=== PATIENT | male | born 2000 | race Caucasian/White ===

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

== ENCOUNTER → 2020-05-27 | Outpatient (CLI) | payer BC, MEDICAID ==
[2020-05-27 12:21] LABS: BASO % 0.3 % (0.0-1.0); EOS % 0.3 % (0.0-3.0); HEMATOCRIT 50.1 % (42.0-52.0); HEMOGLOBIN 16.4 g/dl (13.5-17.5); LYMPH # 2.4 10^3/uL (1.5-5.0); LYMPH % 20.4 % (24.0-44.0); MEAN CORPUSCULAR HEMOGLOBIN 30.3 pg (27.0-33.0); MEAN CORPUSCULAR HGB CONC 32.7 g/dl (32.0-36.5); MEAN CORPUSCULAR VOLUME 92.4 fl (80.0-96.0); MONO # 0.5 10^3/uL (0.0-0.8); NEUTROPHILS # 8.7 10^3/uL (1.5-8.5); NEUTROPHILS % 74.7 % (36.0-66.0); PLATELET COUNT, AUTOMATED 401 10^3/uL (150-450); RED BLOOD COUNT 5.42 10^6/uL (4.30-6.10); WHITE BLOOD COUNT 11.6 10^3/uL (4.0-10.0)
[2020-05-27 12:22] LABS: APPEARANCE, URINE CLEAR (CLEAR); BACTERIA, URINE AUTO NEGATIVE (NEGATIVE); BILIRUBIN, URINE AUTO NEGATIVE (NEGATIVE); BLOOD, URINE BLOOD NEGATIVE (NEGATIVE); COLOR, URINE STRAW (YELLOW); GLUCOSE, URINE (UA) AUTO NEGATIVE (NEGATIVE); KETONE, URINE AUTO NEGATIVE (NEGATIVE); LEUKOCYTE ESTERASE, URINE AUTO NEGATIVE (NEGATIVE); NITRITE, URINE AUTO NEGATIVE (NEGATIVE); PROTEIN, URINE AUTO NEGATIVE (NEGATIVE); RBC, URINE AUTO 0 /HPF (0-3); SPECIFIC GRAVITY URINE AUTO 1.005 (1.002-1.035); SQUAMOUS EPITHELIAL CELL UR AU 0 /HPF (0-6); UROBILINOGEN, URINE AUTO 0.2 mg/dL (0.0-2.0); WBC, URINE AUTO 0 /HPF (0-3)
[2020-05-27 12:48] LABS: BLOOD UREA NITROGEN 11 MG/DL (7-18); CALCIUM LEVEL 9.3 MG/DL (8.5-10.1); CARBON DIOXIDE LEVEL 30 MEQ/L (21-32); CHLORIDE LEVEL 104 MEQ/L (98-107); CREATININE FOR GFR 0.81 MG/DL (0.70-1.30); GLUCOSE, FASTING 92 MG/DL (70-100); SODIUM LEVEL 138 MEQ/L (136-145)
[2020-05-27 12:50] LABS: PERCENT SATURATION 24.3 % (19.7-50.0)
[2020-05-27 13:00] LABS: HEPATITIS B SURFACE ANTIBODY POSITIVE (POSITIVE)
[2020-05-27 13:11] LABS: HEPATITIS B SURFACE ANTIGEN NEGATIVE (NEGATIVE)
[2020-05-27 13:39] LABS: HEPATITIS C VIRUS ABY INDEX < 0.0 INDEX (<0.8)
[2020-05-27 13:40] LABS: HIV 1&2 SCREEN CENTAUR NEGATIVE (NEGATIVE)
== END ==
LOC: M LAB 11:17
PROVIDERS: ATTEND Nurse Practitioner Family
DX: Z02.2 Encounter for examination for admission to residential institution (principal)

== ENCOUNTER → 2020-06-05 | Outpatient (REF) | payer BC, MEDICAID ==
[2020-06-05 14:03] LABS: ALBUMIN 4.4 GM/DL (3.2-5.2); ALT/SGPT 25 U/L (12-78); BILIRUBIN,DIRECT 0.1 MG/DL (0.0-0.2); BILIRUBIN,TOTAL 0.3 MG/DL (0.2-1.0); C REACTIVE PROTEIN QUANTITATIV < 0.30 MG/DL (0.00-0.30); TOTAL PROTEIN 7.7 GM/DL (6.4-8.2)
[2020-06-10 17:10] LABS: CYCLIC CITRULLINATED PEPTIDE 22 units (0-19); HLA-B27 Negative (.)
== END ==
LOC: M SFHCRHEU 10:17
PROVIDERS: ATTEND Internal Medicine
DX: M08.00 Unspecified juvenile rheumatoid arthritis of unspecified site (principal)

== ENCOUNTER 2020-06-24 11:55 | Outpatient (CLI) | payer BC, MEDICAID ==
[~2020-06-24] VITALS: Ht 185.4 cm; Wt 75.6 kg
[~2020-06-24 11:55] MED LIST changes: +ALBUTEROL SULFATE 2.5 MG/0.5 ML INH NEB SOLN INH PRN; +EPINEPHrine INJ 1 MG/ML 1ML AMP IM PRN; +diphenhydrAMINE 50MG/ML VIAL (J1200) IV PRN; +methylPREDNISolone 125MG 2ML VIAL IV PRN
[2020-06-24] MEDS ORDERED: ACETAMINOPHEN 650MG PO PRIOR TO INFUSION PO ONE (12:00)
[2020-06-24] MEDS ORDERED: INFLIXIMAB BIOSIMILAR 800 MG in NS 170 ML IV ONE (12:00)
[2020-06-24] MEDS ORDERED: NS 1,000 ML IV SCH (12:00)
[2020-06-24 12:28] VITALS: BP 135/73
[2020-06-24 12:48] VITALS: BP 135/73
[2020-06-24 14:08] VITALS: BP 154/76
== END 2020-06-24 14:10 | disposition home or self-care (01) ==
LOC: M INFU 11:55
PROVIDERS: ATTEND Internal Medicine
DX: M08.00 Unspecified juvenile rheumatoid arthritis of unspecified site (principal); L40.9 Psoriasis, unspecified
CPT/HCPCS: 96365; Q5103

== ENCOUNTER → 2020-07-28 | Outpatient (CLI) | payer BC, MEDICAID ==
[~2020-07-28] MED LIST changes: -ALBUTEROL SULFATE 2.5 MG/0.5 ML INH NEB SOLN INH PRN; -EPINEPHrine INJ 1 MG/ML 1ML AMP IM PRN; -diphenhydrAMINE 50MG/ML VIAL (J1200) IV PRN; -methylPREDNISolone 125MG 2ML VIAL IV PRN
[2020-07-28 14:51] LABS: BASO % 0.6 % (0.0-1.0); EOS # 0.2 10^3/uL (0.0-0.5); HEMATOCRIT 43.3 % (42.0-52.0); HEMOGLOBIN 14.1 g/dl (13.5-17.5); LYMPH # 3.2 10^3/uL (1.5-5.0); MEAN CORPUSCULAR HEMOGLOBIN 29.8 pg (27.0-33.0); MEAN CORPUSCULAR HGB CONC 32.6 g/dl (32.0-36.5); MEAN CORPUSCULAR VOLUME 91.5 fl (80.0-96.0); MONO # 0.6 10^3/uL (0.0-0.8); MONO % 8.7 % (0.0-5.0); NEUTROPHILS # 3.1 10^3/uL (1.5-8.5); NEUTROPHILS % 43.4 % (36.0-66.0); PLATELET COUNT, AUTOMATED 324 10^3/uL (150-450); RED BLOOD COUNT 4.73 10^6/uL (4.30-6.10); WHITE BLOOD COUNT 7.2 10^3/uL (4.0-10.0)
[2020-07-28 15:15] LABS: ERYTHROCYTE SEDIMENTATION RATE 2 mm/hr (0-15)
[2020-07-28 15:22] LABS: ALBUMIN 3.8 GM/DL (3.2-5.2); ALT/SGPT 28 U/L (12-78); BILIRUBIN,TOTAL 0.2 MG/DL (0.2-1.0); BLOOD UREA NITROGEN 15 MG/DL (7-18); CALCIUM LEVEL 8.9 MG/DL (8.5-10.1); CARBON DIOXIDE LEVEL 29 MEQ/L (21-32); CHLORIDE LEVEL 107 MEQ/L (98-107); CREATININE FOR GFR 0.77 MG/DL (0.70-1.30); GLUCOSE, FASTING 83 MG/DL (70-100); POTASSIUM SERUM 3.9 MEQ/L (3.5-5.1); SODIUM LEVEL 141 MEQ/L (136-145); TOTAL PROTEIN 6.6 GM/DL (6.4-8.2)
== END ==
LOC: M LAB 14:21
PROVIDERS: ATTEND Internal Medicine
DX: M08.00 Unspecified juvenile rheumatoid arthritis of unspecified site (principal)

== ENCOUNTER 2020-08-05 11:54 | Outpatient (CLI) | payer BC, MEDICAID ==
[~2020-08-05] VITALS: Ht 185.4 cm; Wt 75.0 kg
[~2020-08-05 11:54] MED LIST changes: +ALBUTEROL SULFATE 2.5 MG/0.5 ML INH NEB SOLN INH PRN; +EPINEPHrine INJ 1 MG/ML 1ML AMP IM PRN; +diphenhydrAMINE 50MG/ML VIAL (J1200) IV PRN; +methylPREDNISolone 125MG 2ML VIAL IV PRN
[2020-08-05] MEDS ORDERED: INFLIXIMAB BIOSIMILAR 800 MG in NS 170 ML IV ONE (12:00)
[2020-08-05] MEDS ORDERED: ACETAMINOPHEN TAB 650MG DOSE (2X325MG) PO ONE (12:00)
[2020-08-05 12:30] VITALS: BP 139/84
[2020-08-05 12:45] VITALS: BP 139/84
[2020-08-05 13:08] VITALS: BP 131/81
[2020-08-05 13:57] VITALS: BP 140/78
== END 2020-08-05 14:00 | disposition home or self-care (01) ==
LOC: M INFU 11:54
PROVIDERS: ATTEND Internal Medicine
DX: M08.00 Unspecified juvenile rheumatoid arthritis of unspecified site (principal); L40.9 Psoriasis, unspecified
CPT/HCPCS: 96365; Q5103

== ENCOUNTER → 2020-08-13 | Outpatient (CLI) | payer BC, MEDICAID ==
[~2020-08-13] MED LIST changes: -ALBUTEROL SULFATE 2.5 MG/0.5 ML INH NEB SOLN INH PRN; -EPINEPHrine INJ 1 MG/ML 1ML AMP IM PRN; -diphenhydrAMINE 50MG/ML VIAL (J1200) IV PRN; -methylPREDNISolone 125MG 2ML VIAL IV PRN
--- NOTE | 2020-08-13 16:55 | REP ---
INDICATION: RIGHT LEG PAIN. COMPARISON: None. TECHNIQUE: Three views of the right tib fib are presented. FINDINGS: Three views of the right calf demonstrate normal bones, joints, and soft tissues. No fracture or subluxation is seen. No opaque foreign body noted. There is some clothing artifact. IMPRESSION: Negative right tib fib series. <Electronically signed by Abram Haq > 08/13/20 [id number]
== END ==
LOC: M RAD 13:58
PROVIDERS: ATTEND Internal Medicine
DX: M79.604 Pain in right leg (principal)

== ENCOUNTER → 2020-08-29 | Outpatient (CLI) | payer BC, MEDICAID ==
--- NOTE | 2020-08-29 15:00 | REP ---
INDICATION: PAIN IN RIGHT LEG COMPARISON: 06/11/2019 TECHNIQUE: Realtime grayscale and color evaluation using linear high-frequency transducer. FINDINGS: Directed ultrasound examination demonstrates subcutaneous edema and underlying 12.6 x 3.4 x 4.6 cm avascular fluid collection which requires correlation. Differential diagnosis cannot exclude abscess as well as seroma IMPRESSION: Subcutaneous edema and somewhat ill-defined underlying fluid collection <Electronically signed by Ten Blevins > 08/29/20 0180
== END ==
LOC: M RAD 14:22
PROVIDERS: ATTEND Orthopaedic Surgery Sports Medicine
DX: R22.41 Localized swelling, mass and lump, right lower limb (principal); M79.661 Pain in right lower leg

== ENCOUNTER → 2020-08-29 | Outpatient (CLI) | payer BC, MEDICAID ==
--- NOTE | 2020-08-29 11:54 | REP ---
INDICATION: LEFT ANKLE SPRAIN. COMPARISON: None. TECHNIQUE: AP, lateral, oblique view of the left ankle. FINDINGS: Lateral swelling consistent with inversion injury. No acute fracture or dislocation. Ankle mortise intact. IMPRESSION: Lateral swelling. No acute fracture or dislocation. <Electronically signed by Ten Blevins > 08/29/20 1486
== END ==
LOC: M SOG 11:35
PROVIDERS: ATTEND Orthopaedic Surgery Sports Medicine
DX: S93.402A Sprain of unspecified ligament of left ankle, initial encounter (principal); X58.XXXA Exposure to other specified factors, initial encounter; Y92.9 Unspecified place or not applicable

== ENCOUNTER → 2020-09-16 | Outpatient (CLI) | payer BC, MEDICAID ==
[~2020-09-16] VITALS: Ht 185.4 cm; Wt 75.6 kg
[~2020-09-16] MED LIST changes: +ACETAMINOPHEN 650MG PO PRIOR TO INFUSION PO ONE; +ALBUTEROL SULFATE 2.5 MG/0.5 ML INH NEB SOLN INH PRN; +EPINEPHrine INJ 1 MG/ML 1ML AMP IM PRN; +INFLIXIMAB BIOSIMILAR 800 MG in NS 170 ML IV ONE; +NS 1,000 ML IV SCH; +diphenhydrAMINE 50MG/ML VIAL (J1200) IV PRN; +methylPREDNISolone 125MG 2ML VIAL IV PRN
[2020-09-16 12:19] VITALS: BP 144/63
[2020-09-16 12:22] VITALS: BP 144/63
[2020-09-16 14:01] VITALS: BP 130/68
== END ==
LOC: M INFU 12:10
PROVIDERS: ATTEND Internal Medicine
DX: M08.00 Unspecified juvenile rheumatoid arthritis of unspecified site (principal); L40.9 Psoriasis, unspecified
CPT/HCPCS: 96365; Q5103

== ENCOUNTER → 2020-09-24 | Outpatient (CLI) | payer BC, MEDICAID ==
[~2020-09-24] MED LIST changes: -ACETAMINOPHEN 650MG PO PRIOR TO INFUSION PO ONE; -ALBUTEROL SULFATE 2.5 MG/0.5 ML INH NEB SOLN INH PRN; -EPINEPHrine INJ 1 MG/ML 1ML AMP IM PRN; -INFLIXIMAB BIOSIMILAR 800 MG in NS 170 ML IV ONE; -NS 1,000 ML IV SCH; -diphenhydrAMINE 50MG/ML VIAL (J1200) IV PRN; -methylPREDNISolone 125MG 2ML VIAL IV PRN
--- NOTE | 2020-09-26 11:08 | SLEEPCENT ---
NOCTURNAL POLYSOMNOGRAPHY DATE: 09/24/2020 ORDERED BY: GIOVANI Bhagat Nocturnal polysomnography was performed for evaluation of sleep physiology in this patient with a history of nonrestorative sleep and snoring. 8 hours and 56 minutes of data were reviewed. There were 464.5 minutes of sleep identified. Sleep latency was prolonged at 44.5 minutes. REM latency was prolonged at 170 minutes. Sleep architecture showed some fragmentation. There were three REM cycles noted. Overall sleep efficiency was 87.6%. The electrocardiogram showed a sinus rhythm with an average heart rate of 64 beats per minute. EEG showed fairly normal waveforms for wake and sleep. There was some minor alpha intrusion into non-REM stages. No focal events were appreciated. There were only six respiratory events identified of 10 seconds in duration or greater for an apnea-hypopnea index of 0.8. Snoring was noted. Arousals from respiratory events occurred 1.2 times per hour. Oxygen desaturations recorded were felt to be artifactual on further evaluation. There was some activity noted in the limb leads. Only one train of 30 events and limb movement arousal index was 9. Snoring was, however, noted over much of the test. IMPRESSION: Normal nocturnal polysomnography with snoring and borderline limb activity. Litzy Cortez NP
== END ==
LOC: M SLEEP 20:00
PROVIDERS: ATTEND Physician Assistant
DX: R40.0 Somnolence (principal)

== ENCOUNTER → 2020-10-01 | Outpatient (CLI) | payer BC, MEDICAID ==
--- NOTE | 2020-10-01 14:39 | REP ---
INDICATION: SOFT TISSUE MASS; RT TIBIA. COMPARISON: None. TECHNIQUE: Multiple sequences obtained in the axial, coronal and sagittal planes. FINDINGS: At the site of swelling in the mid aspect lower leg anteromedially there is mild ill-defined soft tissue edema between the skin surface and cortical surface of the tibia. No fluid collection, ganglion cyst or other soft tissue nodule is visualized in this region. Muscular structures demonstrate normal signal. Tibia and fibula demonstrate normal signal. There is no occult fracture or bone marrow edema. Cortical signal is normal. No other abnormalities are seen. IMPRESSION: Mild superficial soft tissue edema at the site of reported swelling in the mid lower leg anteromedially, with no other abnormality identified. <Electronically signed by Tony Pineda > 10/01/20 4740
== END ==
LOC: M RAD 13:01
PROVIDERS: ATTEND Orthopaedic Surgery Sports Medicine
DX: R22.41 Localized swelling, mass and lump, right lower limb (principal)

== ENCOUNTER 2020-10-28 12:01 | Outpatient (CLI) | payer BC, MEDICAID ==
[~2020-10-28] VITALS: Ht 185.4 cm; Wt 75.6 kg
[2020-10-28 12:00] VITALS: BP 130/75
[~2020-10-28 12:01] MED LIST changes: +ACETAMINOPHEN 650MG PO PRIOR TO INFUSION PO ONE; +ALBUTEROL SULFATE 2.5 MG/0.5 ML INH NEB SOLN INH PRN; +CETI-39 PO; +EMTR1TAB16 PO; +EPINEPHrine INJ 1 MG/ML 1ML AMP IM PRN; -HM A10TA PO; +INFLIXIMAB BIOSIMILAR 800 MG in NS 170 ML IV ONE; +NS 1,000 ML IV SCH; -TRUVTAB PO; +diphenhydrAMINE 50MG/ML VIAL (J1200) IV PRN; +methylPREDNISolone 125MG 2ML VIAL IV PRN
[2020-10-28 12:15] VITALS: BP 130/75
[2020-10-28 12:42] LABS: BASO % 0.3 % (0.0-1.0); EOS # 0.1 10^3/uL (0.0-0.5); EOS % 1.1 % (0.0-3.0); HEMATOCRIT 46.5 % (42.0-52.0); LYMPH # 2.2 10^3/uL (1.5-5.0); LYMPH % 36.5 % (24.0-44.0); MEAN CORPUSCULAR HGB CONC 32.3 g/dl (32.0-36.5); MEAN CORPUSCULAR VOLUME 89.9 fl (80.0-96.0); MONO # 0.4 10^3/uL (0.0-0.8); MONO % 7.2 % (2.0-8.0); NEUTROPHILS # 3.3 10^3/uL (1.5-8.5); NEUTROPHILS % 54.7 % (36.0-66.0); PLATELET COUNT, AUTOMATED 316 10^3/uL (150-450); RED BLOOD COUNT 5.17 10^6/uL (4.30-6.10); WHITE BLOOD COUNT 6.1 10^3/uL (4.0-10.0)
[2020-10-28 12:50] VITALS: BP 124/67
[2020-10-28 13:00] VITALS: BP 132/68
[2020-10-28 13:01] LABS: ALBUMIN 4.3 GM/DL (3.2-5.2); ALT/SGPT 21 U/L (12-78); BILIRUBIN,TOTAL 0.5 MG/DL (0.2-1.0); BLOOD UREA NITROGEN 12 MG/DL (7-18); CARBON DIOXIDE LEVEL 30 MEQ/L (21-32); CHLORIDE LEVEL 105 MEQ/L (98-107); GLUCOSE, FASTING 107 MG/DL (70-100); POTASSIUM SERUM 3.8 MEQ/L (3.5-5.1); SODIUM LEVEL 138 MEQ/L (136-145); TOTAL PROTEIN 7.6 GM/DL (6.4-8.2)
[2020-10-28 13:28] LABS: ERYTHROCYTE SEDIMENTATION RATE 2 mm/hr (0-15)
[2020-10-28 13:45] VITALS: BP 155/74
== END 2020-10-28 13:45 | disposition home or self-care (01) ==
LOC: M LAB 12:01
PROVIDERS: ATTEND Internal Medicine
DX: M08.00 Unspecified juvenile rheumatoid arthritis of unspecified site (principal); L40.9 Psoriasis, unspecified
CPT/HCPCS: 80053; 85025; 85652; 86140; Q5103

== ENCOUNTER 2020-12-11 12:01 | Outpatient (CLI) | payer BC, MEDICAID ==
[~2020-12-11] VITALS: Ht 185.4 cm; Wt 81.2 kg
[~2020-12-11 12:01] MED LIST changes: -ACETAMINOPHEN 650MG PO PRIOR TO INFUSION PO ONE; -ALBUTEROL SULFATE 2.5 MG/0.5 ML INH NEB SOLN INH PRN; -EPINEPHrine INJ 1 MG/ML 1ML AMP IM PRN; -INFLIXIMAB BIOSIMILAR 800 MG in NS 170 ML IV ONE; -NS 1,000 ML IV SCH; -diphenhydrAMINE 50MG/ML VIAL (J1200) IV PRN; -methylPREDNISolone 125MG 2ML VIAL IV PRN
[2020-12-11 12:05] VITALS: BP 143/71
[2020-12-11] MEDS ORDERED: INFLIXIMAB BIOSIMILAR 800 MG in NS 170 ML IV ONE (12:30)
[2020-12-11] MEDS ORDERED: EPINEPHrine INJ 1 MG/ML 1ML AMP IM PRN (12:30)
[2020-12-11] MEDS ORDERED: NS 1,000 ML IV SCH (12:30)
[2020-12-11] MEDS ORDERED: diphenhydrAMINE 50MG/ML VIAL (J1200) IV PRN (12:30)
[2020-12-11] MEDS ORDERED: ALBUTEROL SULFATE 2.5 MG/0.5 ML INH NEB SOLN INH PRN (12:30)
[2020-12-11] MEDS ORDERED: ACETAMINOPHEN 650MG PO PRIOR TO INFUSION PO ONE (12:30)
[2020-12-11] MEDS ORDERED: methylPREDNISolone 125MG 2ML VIAL IV PRN (12:30)
[2020-12-11 13:15] VITALS: BP 128/80
[2020-12-11 14:00] VITALS: BP 137/69
[2020-12-11 14:19] LABS: BASO % 0.4 % (0.0-1.0); EOS # 0.2 10^3/uL (0.0-0.5); EOS % 3.2 % (0.0-3.0); HEMATOCRIT 42.9 % (42.0-52.0); HEMOGLOBIN 13.9 g/dl (13.5-17.5); LYMPH # 2.4 10^3/uL (1.5-5.0); LYMPH % 33.5 % (24.0-44.0); MEAN CORPUSCULAR HEMOGLOBIN 29.3 pg (27.0-33.0); MEAN CORPUSCULAR HGB CONC 32.4 g/dl (32.0-36.5); MEAN CORPUSCULAR VOLUME 90.5 fl (80.0-96.0); MONO # 0.6 10^3/uL (0.0-0.8); MONO % 7.6 % (2.0-8.0); NEUTROPHILS % 55.2 % (36.0-66.0); PLATELET COUNT, AUTOMATED 295 10^3/uL (150-450); RED BLOOD COUNT 4.74 10^6/uL (4.30-6.10); WHITE BLOOD COUNT 7.2 10^3/uL (4.0-10.0)
[2020-12-11 14:48] LABS: ALBUMIN 3.8 GM/DL (3.2-5.2); ALT/SGPT 24 U/L (12-78); BILIRUBIN,TOTAL 0.4 MG/DL (0.2-1.0); BLOOD UREA NITROGEN 12 MG/DL (7-18); CALCIUM LEVEL 8.5 MG/DL (8.5-10.1); CARBON DIOXIDE LEVEL 27 MEQ/L (21-32); CHLORIDE LEVEL 109 MEQ/L (98-107); CREATININE FOR GFR 0.79 MG/DL (0.70-1.30); GLUCOSE, FASTING 86 MG/DL (70-100); SODIUM LEVEL 140 MEQ/L (136-145); TOTAL PROTEIN 6.7 GM/DL (6.4-8.2)
== END 2020-12-11 14:13 | disposition home or self-care (01) ==
LOC: M INFU 12:01
PROVIDERS: ATTEND Internal Medicine
DX: M08.00 Unspecified juvenile rheumatoid arthritis of unspecified site (principal)
CPT/HCPCS: 36415; 80053; 85025; 85652; 86140; 96413; Q5103

== ENCOUNTER → 2020-12-17 | Outpatient (REF) | payer BC, MEDICAID | LOC: M LAB REF 13:53 | PROVIDERS: ATTEND Internal Medicine Gastroenterology | DX: R19.7 Diarrhea, unspecified (principal) ==

== ENCOUNTER → 2021-01-15 | Outpatient (REF) | payer BC, MEDICAID ==
[2021-01-15 17:12] LABS: BASO # 0.1 10^3/uL (0.0-0.2); BASO % 0.5 % (0.0-1.0); EOS # 0.2 10^3/uL (0.0-0.5); EOS % 1.8 % (0.0-3.0); HEMATOCRIT 46.8 % (42.0-52.0); LYMPH # 3.4 10^3/uL (1.5-5.0); LYMPH % 36.9 % (24.0-44.0); MEAN CORPUSCULAR HEMOGLOBIN 29.2 pg (27.0-33.0); MEAN CORPUSCULAR HGB CONC 32.1 g/dl (32.0-36.5); MEAN CORPUSCULAR VOLUME 91.1 fl (80.0-96.0); MONO # 0.6 10^3/uL (0.0-0.8); MONO % 6.8 % (2.0-8.0); NEUTROPHILS % 53.7 % (36.0-66.0); PLATELET COUNT, AUTOMATED 327 10^3/uL (150-450); RED BLOOD COUNT 5.14 10^6/uL (4.30-6.10); WHITE BLOOD COUNT 9.2 10^3/uL (4.0-10.0)
[2021-01-15 17:19] LABS: ALBUMIN 4.4 GM/DL (3.2-5.2); ALT/SGPT 25 U/L (12-78); BILIRUBIN,TOTAL 0.4 MG/DL (0.2-1.0); BLOOD UREA NITROGEN 17 MG/DL (7-18); CALCIUM LEVEL 9.1 MG/DL (8.5-10.1); CARBON DIOXIDE LEVEL 31 MEQ/L (21-32); CHLORIDE LEVEL 105 MEQ/L (98-107); CREATININE FOR GFR 0.86 MG/DL (0.70-1.30); GLUCOSE, FASTING 107 MG/DL (70-100); POTASSIUM SERUM 4.4 MEQ/L (3.5-5.1); SODIUM LEVEL 139 MEQ/L (136-145); TOTAL PROTEIN 7.4 GM/DL (6.4-8.2)
[2021-01-15 19:21] LABS: ERYTHROCYTE SEDIMENTATION RATE 1 mm/hr (0-15)
== END ==
LOC: M SFHCRHEU 13:38
PROVIDERS: ATTEND Internal Medicine Rheumatology
DX: M08.00 Unspecified juvenile rheumatoid arthritis of unspecified site (principal)

== ENCOUNTER 2021-01-20 12:17 | Outpatient (CLI) | payer BC, MEDICAID ==
[~2021-01-20] VITALS: Ht 185.4 cm; Wt 81.3 kg
[~2021-01-20 12:17] MED LIST changes: +ALBUTEROL SULFATE 2.5 MG/0.5 ML INH NEB SOLN INH PRN; +EPINEPHrine INJ 1 MG/ML 1ML AMP IM PRN; +INFLIXIMAB BIOSIMILAR 800 MG in NS 170 ML IV ONE; +diphenhydrAMINE 50MG/ML VIAL (J1200) IV PRN; +methylPREDNISolone 125MG 2ML VIAL IV PRN
[2021-01-20 12:32] VITALS: BP 137/86
[2021-01-20 12:40] VITALS: BP 137/86
[2021-01-20 13:17] VITALS: BP 158/83
[2021-01-20 14:14] VITALS: BP 150/85
== END 2021-01-20 14:15 | disposition home or self-care (01) ==
LOC: M INFU 12:17
PROVIDERS: ATTEND Internal Medicine Rheumatology
DX: M08.00 Unspecified juvenile rheumatoid arthritis of unspecified site (principal)
CPT/HCPCS: 96365; Q5103

== ENCOUNTER → 2021-02-05 | Outpatient (CLI) | payer BC, MEDICAID ==
[~2021-02-05] MED LIST changes: -ALBUTEROL SULFATE 2.5 MG/0.5 ML INH NEB SOLN INH PRN; +EFFE150C2 PO; +EFFE37.5 PO; -EPINEPHrine INJ 1 MG/ML 1ML AMP IM PRN; -INFLIXIMAB BIOSIMILAR 800 MG in NS 170 ML IV ONE; +MELO15TA28 PO; +PANT40TA29; +[UNRECOGNIZED DRUG - CODE] PO; -diphenhydrAMINE 50MG/ML VIAL (J1200) IV PRN; -methylPREDNISolone 125MG 2ML VIAL IV PRN
== END ==
LOC: M LABSMTC 10:40
PROVIDERS: ATTEND Anesthesiology
DX: Z20.828 Contact with and (suspected) exposure to other viral communicable diseases (principal); Z11.59 Encounter for screening for other viral diseases

== ENCOUNTER 2021-02-10 11:33 | Day surgery (SDC) | payer BC, MEDICAID ==
[~2021-02-10] VITALS: Ht 177.8 cm; Wt 78.0 kg
[~2021-02-10 11:33] MED LIST changes: +NS 1,000 ML IV ONE
--- OUTSIDE RECORDS SUMMARY | 2021-02-10 11:37 | CCD ---
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 10 Active confirmed 6007958 Problem JRA (juvenile rheumatoid arthritis) M08.00 Acti ve confirmed [id number] ALLERGIES No Known Allergies ENCOUNTERS from 2000 to 2021-01-28 Encounter Location Date Provider Diagnosis [facility] Rheumatology [address] [place] [address] [place] [address] 10 Jan, 2021 Zakiya BOYER (juvenile rheumatoid art hritis) M08.00 IMMUNIZATIONS Vaccine Route Administration Date Status Moderna #1 dose COVID-19(given elsewhere) SARSCOV2 VAC 100MC G/0.5ML IM Unknown Jun 18, 2020 Administered Moderna #2 dose COVID-19(given elsewhere) SARSCOV2 VAC 100MC G/0.5ML IM Unknown Jul 15, 2020 Administered SOCIAL HISTORY Tobacco Use: Social History Observation Description Date Details (start date - stop date) Former Smoker Sex Assigned At : Social History Observation Description Sex Assigned At Unknown Language: Question Answer Notes Languages spoken: Setswana Alcohol Screening: Question Answer Notes Did you have a drink containing alcohol in the past year? No Points 0 Interpretation Negative Tobacco Use: Question Answer Notes Are you a: former smoker How long has it been since you last smoked? 6-12 months REASON FOR REFERRAL No Information VITAL SIGNS No information MEDICATIONS Medication SIG (Take, Route, Frequency, Duration) Notes Start Da te End Date Status predniSONE 5 MG 1-2 tablets orally as needed for 30 days Not-Taking predniSONE 5 MG 1-4 tablet Orally Once a day for 30 day(s) 1-4 t abs daily Jun, Not-Taking Folic Acid 1 MG Take 1 tablet daily Tuesday-. Take 3 tablets on Tuesday Orally for 30 day(s) Jan, Active Acetaminophen 325 MG 2 tablets by mouth before infusion Jul, Not-Taking Leucovorin Calcium 5 MG 1 tablet Orally weekly for 28 day(s) Active Methotrexate Sodium 50 MG/2ML 0.8 ml subcutaneously weekly for 30 day s Active Remicade 100 MG as directed Intravenous every 8 weeks has been u sing inflectra Active Cetirizine HCl 10 MG 1 tablet Orally Once a day (AM) Active Methocarbamol 500 MG 1 tablet Orally every 4 hrs Not-Taking Diclofenac Sodium 1 % as directed Externally tid as needed for 3 0 Days Jan, Active Remeron 15 MG 1/2 tablet (7.5 mg) Orally before bedtime Active Voltaren 1 % 2 grams Transdermal four times daily for 14 day(s) Jul, Not-Taking Effexor XR 150 MG 1 capsule with food Orally Once a day for 30 day(s) Active Effexor XR 37.5 MG 1 capsule with food Orally Once a day for 30 day(s ) Active Lexapro 20 MG 1 tablet Orally Once a day for 30 day(s) Not-Taking Acetaminophen 325 MG 2 tablets before infusion Orally once for 1 dose(s) May, Active Erythromycin 2 % 1 application Externally Twice a day Not-Taking cloNIDine HCl ER 0.1 MG 1 tablet Orally three times a day TID Not-Taking Meloxicam 7.5 MG 1-2 tablet Orally Once a day for 30 Days Active Protonix 40 MG 1 tablet Orally bid A ctive LaMICtal 100 MG 1 tablet Orally Once a day for 30 day(s) Not-Taking Folic Acid 1 MG 1 tablet Orally Once a day for 30 days Active PROCEDURES No Information RESULTS No Results REASON FOR VISIT Folic Acid- Sent MEDICAL (GENERAL) HISTORY Type Description Date Medical History Crohn's Disease- 2015 Medical History PTSD Medical History Depression/ Anxiety Medical History Lyme Disease- 2011 Medical History JRA (juvenile rheumatoid arthritis) Medical History Dermatographism Medical History History of Lyme disease Surgical History Left Wrist Reset Surgical History wisdom teeth removed 01/2020 Goals Section No Information Health Concerns No Information MEDICAL EQUIPMENT No Information MENTAL STATUS No Information FUNCTIONAL STATUS No Information ASSESSMENTS Encounter Date Diagnosis Assessment Notes Treatment Notes Treatm ent Clinical Notes Jan, JRA (juvenile rheumatoid arthritis) (ICD-10 - M0 8.00) PLAN OF TREATMENT Medication Medication Name Sig Start Date Stop Date Methotrexate Sodium 50 MG/2ML 0.8 ml subcutaneously weekly for 3 0 days Diclofenac Sodium 1 % as directed Externally tid as needed f or 30 Days Jan, Meloxicam 7.5 MG 1-2 tablet Orally Once a day for 30 Days Folic Acid 1 MG Take 1 tablet daily Tuesday-. Take 3 tablets on Tuesday Orally for 30 day(s) Jan, Next Appt Details Provider Name:Zakiya Perez, 2020-10- 15 10:45:00 AM, [address] [place] [address], , [place], [place], [facility], Insurance Providers Payer Name Payer Address Payer Phone Insured Name Patient Relati onship to Insured Coverage Start Date Coverage End Date [facility] [phone] [facility] imageloop [facility] [place] [address] RONAL HOLLINS self MEDICAID [facility] Easy[employer] [address] [employer] [id number] RONAL HOLLINS self
--- OUTSIDE RECORDS SUMMARY | 2021-02-10 11:37 | CCD ---
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 10 Active confirmed 0348708 Problem JRA (juvenile rheumatoid arthritis) M08.00 Acti ve confirmed [id number] ALLERGIES No Known Allergies ENCOUNTERS from 2000 to 2021-01-22 Encounter Location Date Provider Diagnosis [facility] Rheumatology [address] [place] [address] [place] [address] Jan, Zakiya BOYER (juvenile rheumatoid art hritis) M08.00 ; Crohn's disease of colon without complication K50.10 ; Right leg pain M79.604 and Long- term use of high-risk medication Z79.899 IMMUNIZATIONS Vaccine Route Administration Date Status Moderna [...] Unknown Language: Question Answer Notes Languages spoken: Vincentian Alcohol Screening: Question Answer Notes Did you have a drink containing alcohol in the past year? No Points 0 Interpretation Negative Tobacco Use: Question Answer Notes Are you a: former smoker How long has it been since you last smoked? 6-12 months REASON FOR REFERRAL No Information VITAL SIGNS Weight 176.4 lbs Jan, Weight-kg 80.01 kg Jan, Height 73 in Jan, BMI 23.27 kg/m2 Jan, Heart Rate 93 /min Jan, Respiratory Rate 18 /min Jan, Temperature 98.6 degrees Fahrenheit Jan, Oximetry 99% Jan, Blood pressure systolic 120 mm Hg Jan, Blood pressure diastolic 64 mm Hg Jan, MEDICATIONS Medication SIG (Take, Route, Frequency, Duration) Notes Start Da te End Date Status predniSONE 5 MG 1-4 tablet Orally Once a day for 30 day(s) 1-4 t abs daily Jun, Not-Taking Folic Acid 1 MG 1 tablet Orally Once a day for 30 days Active Leucovorin Calcium 5 MG 1 tablet Orally weekly for 28 day(s) Active Acetaminophen 325 MG 2 tablets before infusion Orally once for 1 dose(s) days May, Active predniSONE 5 MG 1-2 tablets orally as needed for 30 days Not-Taking Folic Acid 1 MG 3 tablet Orally Once a week on saturdays for 30 day(s) Jan, Active Remicade 100 MG as directed Intravenous every 8 weeks has been u sing inflectra Active Cetirizine HCl 10 MG 1 tablet Orally Once a day (AM) Active Methocarbamol 500 MG 1 tablet Orally every 4 hrs Not-Taking Diclofenac Sodium 1 % as directed Externally tid as needed for 3 0 Days Jan, Active Voltaren 1 % 2 grams Transdermal four times daily for 14 day(s) Jul, Not-Taking Acetaminophen 325 MG 2 tablets by mouth before infusion Jul, Not-Taking Methotrexate Sodium 50 MG/2ML 0.8 ml subcutaneously weekly for 30 day s Active Erythromycin 2 % 1 application Externally Twice a day Not-Taking Lexapro 20 MG 1 tablet Orally Once a day for 30 day(s) Not-Taking LaMICtal 100 MG 1 tablet Orally Once a day for 30 day(s) Not-Taking Remeron 15 MG 1/2 tablet (7.5 mg) Orally before bedtime Active cloNIDine HCl ER 0.1 MG 1 tablet Orally three times a day TID Not-Taking Meloxicam 7.5 MG 1-2 tablet Orally Once a day for 30 Days Active Protonix 40 MG 1 tablet Orally bid A ctive Effexor XR 150 MG 1 capsule with food Orally Once a day for 30 day(s) Active Effexor XR 37.5 MG 1 capsule with food Orally Once a day for 30 day(s ) Active PROCEDURES No Information RESULTS No Results REASON FOR VISIT Patient is here for a follow up appointment. States that continues to have achin g and stiffness, however, he has been running 3 miles 4 days per week. He will n eed a new script for methotrexate injection. Patient last infusion was 01/20/21. MEDICAL (GENERAL) HISTORY Type Description Date Medical [...] (juvenile rheumatoid arthritis) (ICD-10 - M0 8.00) JRA/QIAN seems to have evolved into a chronic rheumatoid arthritis picture. CCP positive RF negative with crohns nonerosive non deforming no extra-articular manifestations to date continue Inflectra 10 mg/kg every 6 weeks for now, consider increasing to every 4 weeks if GI flare after colonoscopy continue MTX SQ 20 mg weekly on saturdays increase folic acid on saturdays to 3 mg for nausea continue folic acid 1 mg daily and leucovorin on sundays Continue meloxicam 7.5 mg - 15 mg daily as needed with caution given Crohns given increased joint symptoms avoid other NSAIDs if it worsens your stomach , we can consider a short course of prednisone if joint symptoms persist avoid prednisone for now will start voltaren gel as needed for hip and knee pains can consider SSZ/ AZA in the future as an add on therapy if no indication for escalation of therapy from GI standpoint and if prednisone need to be added labs reviewed normal labs prior to next visit Jan, Crohn's disease of colon without complication (I CD-10 - K50.10) Crohn's is more active just before the Inflectra infusion with diarrhea and abdominal cramps await colonoscopy 02/10/2021 can consider escalting therapy after colonoscopy Jan, Right leg pain (ICD-10 - M79.604) seen ortho s/p [facility] ultrasound with no etiology , per ortho records held off on MRI with contrast given he is on biologics, unclear why , explained no contraindications MRI without contrast showed no abnormality monitor closely for now Jan, Long-term use of high-risk medication (ICD-10 - Z79.899) s/p COVID 19 vaccine continue folic acid 1 mg daily except 3 mg on day of MTX continue leucovorin day after MTX meloxicam with caution given crohns labs reviewed Jan, Other PATIENT INSTRUCTIONS: continue Inflectra 10 mg/kg every 6 weeks for now, consider increasing to every 4 weeks after colonoscopy continue MTX SQ 20 mg weekly on saturdays increase folic acid on saturdays to 3 mg for nausea continue folic acid 1 mg daily and leucovorin on sundays Continue meloxicam 7.5 mg - 15 mg daily as needed avoid other NSAIDs will start voltaren gel as needed for hip and knee pains Stop Prednisone labs prior to next visit refilled methotrexate, meloxicam, new dose of folic acid and voltaren gel please ask your GI doctor to forward us notes and results of the colonoscopy return in 2 months More than 50% of the 30 minute visit was spent in patient education, counseling, and coordination of care. I reviewed her symptoms, imaging findings, laboratory results, physical findings, and treatment to date. I have answered patient's questions, and they stated satisfaction regarding the treatment plan and recommendations PLAN OF TREATMENT Medication Medication Name Sig Start Date Stop Date Folic Acid 1 MG 3 tablet Orally Once a week on saturdays for 30 day(s) Jan, Diclofenac Sodium 1 % as directed Externally tid as needed f or 30 Days Jan, Meloxicam 7.5 MG 1-2 tablet Orally Once a day for 30 Days Methotrexate Sodium 50 MG/2ML 0.8 ml subcutaneously weekly for 3 0 days Treatment Notes Assessment Notes Clinical Notes JRA (juvenile rheumatoid arthritis) JRA/ QIAN seems to have evolved into a chronic rheumatoid arthritis picture.CCP positive RF negativewith crohnsnonerosivenon deformingno extra-articular manifestations to datecontinue Inflectra 10 mg/kg every 6 weeks for now, consider increasing to every 4 weeks if GI flare after colonoscopycontinue MTX SQ 20 mg weekly on saturdaysincrease folic acid on saturdays to 3 mg for nauseacontinue folic acid 1 mg daily and leucovorin on sundaysContinue meloxicam 7.5 mg - 15 mg daily as needed with caution given Crohns given increased joint symptomsavoid other NSAIDsif it worsens your stomach , we can consider a short course of prednisone if joint symptoms persistavoid prednisone for nowwill start voltaren gel as needed for hip and knee painscan consider SSZ/ AZA in the future as an add on therapy if no indication for escalation of therapy from GI standpoint and if prednisone need to be addedlabs reviewed normallabs prior to next visit Crohn's disease of colon without complication Crohn's is more active just before the Inflectra infusion with diarrhea and abdominal crampsawait colonoscopy 02/10/2021an consider escalting therapy after colonoscopy Right leg pain seen ortho s/p [facility] u ltrasound with no etiology , per ortho records held off on MRI with contrast given he is on biologics, unclear why , explained no contraindicationsMRI without contrast showed no abnormalitymonitor closely for now Long-term use of high-risk medication s/ p COVID 19 vaccinecontinue folic acid 1 mg daily except 3 mg on day of MTXcontinue leucovorin day after MTXmeloxicam with caution given crohnslabs reviewed Future Test Test Name Order Date CBC with Differential [id number] Comprehensive Metabolic Profile (CMP) [id number] ERYTHROCYTE SEDIMENTATION RATE [id number] C REACTIVE PROTEIN QUANTITATIV (At [facility]) [id number] Next Appt Details 2 Months Reason: Provider Name:Zakiyaramonita Perez, 10:30:00 AM, [address] [place] [address], , [place], [address], Insurance Providers Payer Name Payer Address Payer Phone Insured Name Patient Relati onship to Insured Coverage Start Date Coverage End Date MEDICAID [employer] [address] [facility] [id number] RONAL HOLLINS BCBS [place] [facility] O [phone] [facility] [place] [address] RONAL HOLLINS self
--- OUTSIDE RECORDS SUMMARY | 2021-02-10 11:37 | CCD ---
Author Author [employer] Organization [employer] Address Unknown Phone Unavailable Care Team Providers Care Pass Worker Name Role Phone Ledy Chilel PROBLEMS Type Condition ICD9-CM Code [id number] Code Onset Dates Condition S tatus W/U Status Risk SNOMED Code Notes Problem Psoriasis L40.9 Active confirmed 8629559 Problem Crohn's disease of colon without complication K50. 10 Active confirmed 2201278 Problem JRA (juvenile rheumatoid arthritis) M08.00 Acti ve confirmed [id number] ALLERGIES No Known Allergies ENCOUNTERS from 2000 to 2021-01-21 Encounter Location Date Provider Diagnosis [facility] Rheumatology [address] [place] [address] [place] [address] Dec, [facility] [place] IMMUNIZATIONS Vaccine Route Administration Date Status Moderna [...] Unknown Language: Question Answer Notes Languages spoken: Nicaraguan Alcohol Screening: Question Answer Notes Did you [...] Notes Start Da te End Date Status Protonix 40 MG 1 tablet Orally bid A ctive Methocarbamol 500 MG 1 tablet Orally every 4 hrs Not-Taking Remicade 100 MG as directed Intravenous every 8 weeks has been u sing inflectra Active Keflex 500 MG as directed Orally Act ricardo Lexapro 20 MG 1 tablet Orally Once a day for 30 day(s) Not-Taking BD Insulin Syringe 29G X 1/2" 1 ML as directed for inj ection of methotrexate subcutaneously Weekly for 90 days Aug, Active cloNIDine HCl ER 0.1 MG 1 tablet Orally three times a day TID Not-Taking Remeron 15 MG 1/2 tablet (7.5 mg) Orally before bedtime Active Erythromycin 2 % 1 application Externally Twice a day Not-Taking LaMICtal 100 MG 1 tablet Orally Once a day for 30 day(s) Not-Taking Meloxicam 7.5 MG 1-2 tablet Orally Once a day for 30 Days Active Methotrexate Sodium 50 MG/2ML 0.7 ml subcutaneously weekly for 30 day s Active Voltaren 1 % 2 grams Transdermal four times daily for 14 day(s) Jul, Not-Taking Leucovorin Calcium 5 MG 1 tablet Orally weekly for 28 day(s) Active Acetaminophen 325 MG 2 tablets by mouth before infusion Jul, Not-Taking predniSONE 5 MG 1-4 tablet Orally Once a day for 30 day(s) 1-4 t abs daily Jun, Not-Taking predniSONE 5 MG 1-2 tablets orally as needed for 30 days 11/13/20: taking 1 tab up to 3 x weekly Active Acetaminophen 325 MG 2 tablets before infusion Orally once for 1 dose(s) days May, Active Effexor XR 150 MG 1 capsule with food Orally Once a day for 30 day(s) Active Folic Acid 1 MG 1 tablet Orally Once a day for 30 days Active Cetirizine HCl 10 MG 1 tablet Orally Once a day (AM) Active PROCEDURES No Information RESULTS No Results REASON FOR VISIT Lab Draw for 01/21/21 appt MEDICAL (GENERAL) HISTORY Type Description Date Medical [...] No Information FUNCTIONAL STATUS No Information ASSESSMENTS No Information PLAN OF TREATMENT Next Appt Details Provider Name:Zakiya Perez, 11:30:00 AM, [address] [place] [address], , [place], [address], Insurance Providers Payer Name Payer Address Payer Phone Insured Name Patient Relati onship to Insured Coverage Start Date Coverage End Date BC[facility] [phone] [facility] [employer] [facility] [id number] RONAL HOLLINS self MEDICAID [facility] [address] [facility] [id number] RONAL HOLLINS self
--- OUTSIDE RECORDS SUMMARY | 2021-02-10 11:37 | CCD ---
Author Author [employer] Organization [employer] Address Unknown Phone Unavailable Care Team Providers Care Retail Branch Manager Name Role Phone Zakiya Perez Unavailable PROBLEMS Type Condition ICD9-CM Code [id number] Code Onset Dates Condition S tatus W/U Status Risk SNOMED Code Notes Problem Psoriasis L40.9 Active confirmed 2997010 Problem Crohn's disease of colon without complication K50. 10 Active confirmed 2864217 Problem JRA (juvenile rheumatoid arthritis) M08.00 Acti ve confirmed [id number] ALLERGIES No Known Allergies ENCOUNTERS from 2000 to 2021-02-04 Encounter Location Date Provider Diagnosis [facility] Rheumatology [address] [place] [address] [place] [address] Dec, Zakiya Perez IMMUNIZATIONS Vaccine Route Administration Date Status Moderna [...] Unknown Language: Question Answer Notes Languages spoken: Armenian Alcohol Screening: Question Answer Notes Did you [...] once for 1 dose(s) days May, Active Erythromycin 2 % 1 application [...] Information RESULTS No Results REASON FOR VISIT Medicaid Visits-Mailed to Medicaid MEDICAL (GENERAL) HISTORY Type Description Date Medical [...] Information ASSESSMENTS No Information PLAN OF TREATMENT Medication Medication Name Sig [...] Jan, Next Appt Details Provider Name:Zakiya Perez, 10:45:00 AM, [address] [place] [address], , [place], [place], [facility], Insurance Providers Payer Name Payer Address Payer Phone Insured Name Patient Relati onship to Insured Coverage Start Date Coverage End Date [facility] [id number] [facility] Wear [facility] PA RK [facility] [id number] RONAL HOLLINS self MEDICAID [facility] [address] [facility] [id number] RONAL HOLLINS self
--- OUTSIDE RECORDS SUMMARY | 2021-02-10 11:38 | CCD ---
Author Author [employer] Organization [employer] Address Unknown Phone Unavailable Care Team Providers Care V Belt Coverer Name Role Phone Zakiya Perez Unavailable PROBLEMS Type Condition ICD9-CM Code QIN36-QI Code Onset Dates Condition S tatus W/U Status Risk SNOMED Code Notes Problem Psoriasis L40.9 Active confirmed 4341635 Problem Crohn's disease of colon without complication K50. 10 Active confirmed 5836134 Problem JRA (juvenile rheumatoid arthritis) M08.00 Acti ve confirmed [id number] ALLERGIES No Known Allergies ENCOUNTERS from 2000 to 2020-11-27 Encounter Location Date Provider Diagnosis [facility] Rheumatology [address] [place] [address] [place] [address] Nov, Zakiya BOYER (juvenile rheumatoid art hritis) M08.00 [...] Unknown Language: Question Answer Notes Languages spoken: Yoruba Alcohol Screening: Question Answer Notes Did you [...] Notes Start Da te End Date Status Meloxicam 7.5 MG 1 tablet Orally Once a day for 30 day(s) October, Active BD Insulin Syringe 29G X 1/2" 1 ML as directed for inj ection of methotrexate subcutaneously Weekly for 90 days Aug, Active Methocarbamol 500 MG 1 tablet Orally every 4 hrs Not-Taking Remicade 100 MG as directed Intravenous every 8 weeks Active Methotrexate Sodium 50 MG/2ML 0.7 ml subcutaneously weekly for 30 day s Active Acetaminophen 325 MG 2 tablets by mouth before infusion Jul, Not-Taking predniSONE 5 MG 1-2 tablets orally as needed for 30 days Active cloNIDine HCl ER 0.1 MG 1 tablet Orally three times a day Not-Taking Cetirizine HCl 10 MG 1 tablet Orally Once a day (AM) Active Leucovorin Calcium 5 MG 1 tablet Orally weekly for 30 days Active Acetaminophen 325 MG 2 tablets before infusion Orally once for 1 dose(s) days May, Active Voltaren 1 % 2 grams Transdermal four times daily for 14 day(s) Jul, Not-Taking Protonix 40 MG 1 tablet Orally bid A ctive Effexor XR 150 MG 1 capsule with food Orally Once a day for 30 day(s) Active Erythromycin 2 % 1 application Externally Twice a day Not-Taking predniSONE 5 MG 1-4 tablet Orally Once a day for 30 day(s) Jun, Not-Taking Lexapro 20 MG 1 tablet Orally Once a day for 30 day(s) Not-Taking Folic Acid 1 MG 1 tablet Orally Once a day for 30 days Active LaMICtal 100 MG 1 tablet Orally Once a day for 30 day(s) Not-Taking Remeron 15 MG 1/2 tablet (7.5 mg) Orally before bedtime Active PROCEDURES No Information RESULTS No Results REASON FOR VISIT Medication Refill Request: Folic Acid MEDICAL (GENERAL) HISTORY Type Description Date Medical [...] Notes Treatment Notes Treatm ent Clinical Notes Nov, JRA (juvenile rheumatoid arthritis) (ICD-10 - M0 8.00) PLAN OF TREATMENT Medication Medication Name Sig Start Date Stop Date Meloxicam 7.5 MG 1 tablet Orally Once a day for 30 day(s) October Folic Acid 1 MG 1 tablet Orally Once a day for 30 days Next Appt Details Provider Name:Zakiya Perez, 2020-12- 09:30:00 AM, [address] [place] [address], , [place], [place], [facility], Insurance Providers Payer Name Payer Address Payer Phone Insured Name Patient Relati onship to Insured Coverage Start Date Coverage End Date BCBS ELAINE KEVIN O [phone] [facility] [id number] RONAL HOLLINS self MEDICAID [employer] [address] [facility] [id number] RONAL HOLLINS self
--- OUTSIDE RECORDS SUMMARY | 2021-02-10 11:38 | CCD ---
Author Author [employer] [facility] Organization [employer] [facility] [employer] Address Unknown Phone Unavailable Care Team Providers Care Administration Assistant Name Role Phone Zakiya Perez Unavailable PROBLEMS Type Condition ICD9-CM Code [id number] Code Onset Dates Condition S tatus W/U Status Risk SNOMED Code Notes Problem Psoriasis L40.9 Active confirmed 8525230 Problem Crohn's disease of colon without complication K50. 10 Active confirmed 1437349 Problem JRA (juvenile rheumatoid arthritis) M08.00 Acti ve confirmed [id number] ALLERGIES No Known Allergies ENCOUNTERS from 2000 to 2020-12-10 Encounter Location Date Provider Diagnosis [facility] Rheumatology [address] [place] [address] [place] [address] Nov, Zakiya Perez IMMUNIZATIONS Vaccine Route Administration Date [...] Unknown Language: Question Answer Notes Languages spoken: Macedonian Alcohol Screening: Question Answer Notes Did you [...] Notes Start Da te End Date Status Cetirizine HCl 10 MG 1 tablet Orally Once a day (AM) Active Meloxicam 7.5 MG 1-2 tablet Orally Once a day for 30 Days Active Effexor XR 150 MG 1 capsule with food Orally Once a day for 30 day(s) Active BD Insulin Syringe 29G X 1/2" 1 ML as directed for inj ection of methotrexate subcutaneously Weekly for 90 days Aug, Active Methocarbamol 500 MG 1 tablet Orally every 4 hrs Not-Taking predniSONE 5 MG 1-4 tablet Orally Once a day for 30 day(s) Jun, Not-Taking Remeron 15 MG 1/2 tablet (7.5 mg) Orally before bedtime Active Acetaminophen 325 MG 2 tablets by mouth before infusion Jul, Not-Taking LaMICtal 100 MG 1 tablet Orally Once a day for 30 day(s) Not-Taking Voltaren 1 % 2 grams Transdermal four times daily for 14 day(s) Jul, Not-Taking Protonix 40 MG 1 tablet Orally bid A ctive Folic Acid 1 MG 1 tablet Orally Once a day for 30 days Active Methotrexate Sodium 50 MG/2ML 0.7 ml subcutaneously weekly for 30 day s Active cloNIDine HCl ER 0.1 MG 1 tablet Orally three times a day Not-Taking Acetaminophen 325 MG 2 tablets before infusion Orally once for 1 dose(s) days May, Active Keflex 500 MG as directed Orally Act ricardo Lexapro 20 MG 1 tablet Orally Once a day for 30 day(s) Not-Taking Remicade 100 MG as directed Intravenous every 8 weeks Active Erythromycin 2 % 1 application Externally Twice a day Not-Taking predniSONE 5 MG 1-2 tablets orally as needed for 30 days Active Leucovorin Calcium 5 MG 1 tablet Orally weekly for 30 days Active PROCEDURES No Information RESULTS No Results REASON FOR VISIT Infusion Order: Ready to review/sign MEDICAL (GENERAL) HISTORY Type Description Date Medical [...] Appt Details Provider Name:Zakiya Perez, 11:30:00 AM, [address] [place] [address], , [place], [address], Insurance Providers Payer Name Payer Address Payer Phone Insured Name Patient Relati onship to Insured Coverage Start Date Coverage End Date MEDICAID [employer] [address] [facility] [address] RONAL HOLLINS self BCBS [place] [facility] PPO [id number] [place] [id number] ORNAL HOLLINS self
--- OUTSIDE RECORDS SUMMARY | 2021-02-10 11:38 | CCD ---
Author Author [employer] [facility] Organization [employer] Address Unknown Phone Unavailable Care Team Providers Care Machinist Helper Marine Name Role Phone Zakiya Perez Unavailable PROBLEMS Type Condition ICD9-CM Code [id number] Code Onset Dates Condition S tatus W/U Status Risk SNOMED Code Notes Problem Psoriasis L40.9 Active confirmed 6783765 Problem Crohn's disease of colon without complication K50. 10 Active confirmed 8592029 Problem JRA (juvenile rheumatoid arthritis) M08.00 Acti ve confirmed [id number] ALLERGIES No Known Allergies ENCOUNTERS from 2000 to 2020-12-10 Encounter Location Date Provider Diagnosis [facility] Rheumatology [address] [place] [address] [place] [address] Nov, Zakiya Perez IMMUNIZATIONS Vaccine Route Administration [...] Unknown Language: Question Answer Notes Languages spoken: Estonian Alcohol Screening: Question Answer Notes Did you [...] Information RESULTS No Results REASON FOR VISIT Inflectra Infusion Order MEDICAL (GENERAL) HISTORY Type Description Date Medical [...] PLAN OF TREATMENT Next Appt Details Provider Name:Zakiyaramonita Perez, 11:30:00 AM, [address] [place] [address], , [place], [address], Insurance Providers Payer Name Payer Address Payer Phone Insured Name Patient Relati onship to Insured Coverage Start Date Coverage End Date MEDICAID [employer] [address] [facility] [id number] RONAL HOLLINS self [id number] [facility] [place] [address] RONAL HOLLINS self
--- OUTSIDE RECORDS SUMMARY | 2021-02-10 11:38 | CCD ---
Author Author [employer] [facility] Organization [employer] [facility] Address Unknown Phone Unavailable Care Team Providers Care Retail Supervisor Name Role Phone Zakiya Perez Unavailable PROBLEMS Type Condition ICD9-CM Code [id number] Code Onset Dates Condition S tatus W/U Status Risk SNOMED Code Notes Problem Psoriasis L40.9 Active confirmed 5257441 Problem Crohn's disease of colon without complication K50. 10 Active confirmed 5335077 Problem JRA (juvenile rheumatoid arthritis) M08.00 Acti ve confirmed [id number] ALLERGIES No Known Allergies ENCOUNTERS from 2000 to 2020-12-11 Encounter Location Date Provider Diagnosis [facility] Rheumatology [address] [place] [address] [place] [address] Nov, Zakiya BOYER (juvenile rheumatoid art hritis) [...] Unknown Language: Question Answer Notes Languages spoken: Lithuanian Alcohol Screening: Question Answer Notes Did you have a drink containing alcohol in the past year? No Points 0 Interpretation Negative Tobacco Use: Question Answer Notes Are you a: former smoker How long has it been since you last smoked? 6-12 months REASON FOR REFERRAL No Information VITAL SIGNS Weight 179 lbs Nov, Weight-kg 81.2 kg Nov, Height 73 in Nov, BMI 23.61 kg/m2 Nov, Heart Rate 95 /min Nov, Respiratory Rate 18 /min Nov, Temperature 99.5 degrees Fahrenheit Nov, Oximetry 98% Nov, Blood pressure systolic 108 mm Hg Nov, Blood pressure diastolic 70 mm Hg Nov, MEDICATIONS Medication SIG (Take, Route, Frequency, Duration) [...] RESULTS No Results REASON FOR VISIT Infusion Order Visit, Patient is in a little pain in left ankle left knee. Brock nt is on last dose of antibiotic(keflex) for ingrown toe. MEDICAL (GENERAL) HISTORY Type Description Date Medical [...] every 4 weeks if GI flare after GI visit continue MTX SQ 20 mg weekly on saturdays Increase meloxicam 7.5 mg - 15 mg daily as needed with caution given Crohns given increased joint symptoms avoid other NSAIDs if it worsens your stomach stop and let me know , we can consider a short course of prednisone if joint symptoms persist after the infusion avoid prednisone for now can consider SSZ/ AZA in the future as an add on therapy if no indication for escalation of therapy from GI standpoint and if prednisone need to be added labs next visit Nov, Crohn's disease of colon without complication (I CD-10 - K50.10) Crohn's is more active just before the Inflectra infusion with diarrhea and abdominal cramps await GI eval end of november can consider escalting therapy after colonoscopy Nov, Right leg pain (ICD-10 - M79.604) seen ortho s/p [facility] ultrasound with no etiology , per ortho records held off on MRI with contrast given he is on biologics, unclear why , explained no contraindications MRI without contrast showed no abnormality monitor closely for now Nov, Long-term use of high-risk medication (ICD-10 - Z79.899) s/p COVID 19 vaccine continue folic acid 1 mg daily continue leucovorin day after MTX meloxicam with caution given crohns labs reviewed Nov, Other Patient instructions : Continue methotrexate SQ 0.8 cc weekly on saturdays continue folic acid and leucovorin continue remicade 10 mg/kg every 6 weeks Increase meloxicam 7.5 mg - 15 mg daily as needed with caution given Crohns given increased joint symptoms , if it worsens your stomach stop and let me know , we can consider a short course of prednisone if joint symptoms persist after the infusion try not to take prednisone labs tomorrow with infusion please ask your GI doctor to send us a copy of the visit notes - talk to your GI doctor about sulfasalazine or imuran addition hand out about imuran given return in 6 weeks after next infusion and GI visit as well as colonoscopy More than 50% of the 50 minute visit was spent in patient education, counseling, and coordination of care. I reviewed her symptoms, imaging findings, laboratory results, physical findings, and treatment to date. I have answered patient's questions, and they stated satisfaction regarding the treatment plan and recommendations PLAN OF TREATMENT Treatment Notes Assessment Notes Clinical Notes JRA (juvenile rheumatoid arthritis) JRA/ QIAN seems to have evolved into a chronic rheumatoid arthritis picture.CCP positive RF negativewith crohnsnonerosivenon deformingno extra-articular manifestations to datecontinue Inflectra 10 mg/kg every 6 weeks for now, consider increasing to every 4 weeks if GI flare after GI visitcontinue MTX SQ 20 mg weekly on saturdaysIncrease meloxicam 7.5 mg - 15 mg daily as needed with caution given Crohns given increased joint symptomsavoid other NSAIDsif it worsens your stomach stop and let me know , we can consider a short course of prednisone if joint symptoms persist after the infusionavoid prednisone for nowcan consider SSZ/ AZA in the future as an add on therapy if no indication for escalation of therapy from GI standpoint and if prednisone need to be addedlabs next visit Crohn's disease of colon without complication Crohn's is more active just before the Inflectra infusion with diarrhea and abdominal crampsawait GI eval end of novembercan consider escalting therapy after colonoscopy Right leg pain seen ortho s/p [facility] u ltrasound with no etiology , per ortho records held off on MRI with contrast given he is on biologics, unclear why , explained no contraindicationsMRI without contrast showed no abnormalitymonitor closely for now Long-term use of high-risk medication s/ p COVID 19 vaccinecontinue folic acid 1 mg dailycontinue leucovorin day after MTXmeloxicam with caution given crohnslabs reviewed Treatment Notes Test Name Order Date ERYTHROCYTE SEDIMENTATION RATE 2020-12-10 Comprehensive Metabolic Profile (CMP) 2020-12-10 CBC with Differential 2020-12-10 C REACTIVE PROTEIN QUANTITATIV (At [facility]) 2020-12-10 Next Appt Details 6 Weeks Reason:f/u MERLIN Provider Name:Zakiya Perez, 11:30:00 AM, [address] [place] [address], , [place], [place], [facility], Follow Up:6 Weeksf/u MERLIN Insurance Providers Payer Name Payer Address Payer Phone Insured Name Patient Relati onship to Insured Coverage Start Date Coverage End Date MEDICAID [employer] [address] [facility] [address] RONAL HOLLINS self BCBS [place] [facility] [phone] [facility] [place] [address] RONAL HOLLINS self
--- OUTSIDE RECORDS SUMMARY | 2021-02-10 11:38 | CCD ---
Author Author [employer] [facility] Organization [employer] Address Unknown Phone Unavailable Care Team Providers Care Mixing Picker Tender Name Role Phone Zakiya Perez Unavailable PROBLEMS Type Condition ICD9-CM Code [id number] Code Onset Dates Condition S tatus W/U Status Risk SNOMED Code Notes Problem Psoriasis L40.9 Active confirmed 2555671 Problem Crohn's disease of colon without complication K50. 10 Active confirmed 4264268 Problem JRA (juvenile rheumatoid arthritis) M08.00 Acti ve confirmed [id number] ALLERGIES No Known Allergies ENCOUNTERS from 2000 to 2020-12-08 Encounter Location Date Provider Diagnosis [facility] Rheumatology [address] [place] [address] [place] [address] Nov, Zakiya Perez IMMUNIZATIONS Vaccine Route Administration [...] Unknown Language: Question Answer Notes Languages spoken: Maori Alcohol Screening: Question Answer Notes Did you [...] Information RESULTS No Results REASON FOR VISIT No Information MEDICAL (GENERAL) HISTORY Type Description Date Medical [...] days Next Appt Details Provider Name:Zakiya Perez, 10:45:00 AM, [address] [place] [address], , [place], [address], Provider Name:Zakiya Perez, 09:30:00 AM, [address] [place] [address], , [place], [address], Insurance Providers Payer Name Payer Address Payer Phone Insured Name Patient Relati onship to Insured Coverage Start Date Coverage End Date MEDICAID [employer] [address] [facility] [id number] RONAL HOLLINS self BCBS [place] [facility] [id number] [facility] [place] [place] [id number] RONAL HOLLINS self
--- OUTSIDE RECORDS SUMMARY | 2021-02-10 11:38 | CCD | Continuity of Care Document ---
Author Author Koko PETE M.D. Organization Unknown Address [address] [place] [address], [address] [place] [address] Phone [phone] Care Team Providers Care Carding Doubler Name Role Phone Litzy Cortez AUTM [phone] AUTM Unavailable Reba Denney M.D. AUTM [phone] AUTM Unavailable Problems Description No Information Available Social History Type Date Description Comments Sex Unknown ETOH Use Denies alcohol use Tobacco Use Start: Unknown End: Patient is a former smoker 2 ppd x 5 years Smoking Status Reviewed: 10/28/20 Patient is a former smoker 2 ppd x 5 years Allergies, Adverse Reactions, Alerts Description No Known Drug Allergies Medications Active Medications SIG Qnty Indications Ordering Provide r Date Protonix 40mg Tablets DR 1tab po bid Unknown Effexor XR 150mg Caps ER 24HR 1cap po qd Unknown Methotrexate Sodium 50mg/2ML Solut ion 1 injection per week 0.8ml Unknown 000 Remicade 100mg Solution Rec q 6wks Unknown Folic Acid 1mg Tablets 1tab p o qd Unknown Zyrtec Allergy 10mg Capsules 1cap po qd Unknown Calcium 1tab po 24h after Methotrexate Unkno wn Clindamycin Solution 1% bid Unknown 0 Immunizations Description No Information Available Vital Signs Date Vital Result Comment 12/15/2020 9:22am BP Systolic 122 mmHg BP Diastolic 66 mmHg Height 73 inches 6'1" Weight 175.00 lb BMI (Body Mass Index) 23.1 kg/m2 [place] Body Weight 184 lb Weight 79.380 kg BSA (Body Surface Area) 2.03 m2 10/31/2020 10:33am Height 73 inches 6'1" Weight 180.00 lb BMI (Body Mass Index) 23.7 kg/m2 [place] Body Weight 184 lb Weight 81.648 kg BSA (Body Surface Area) 2.06 m2 Results Test Acquired Date Facility Test Result H/L Range Note Laboratory test finding 12/17/2020 [facility] Main Lab [address] [place] [address] [phone] Calprotectin Stool 66 ug/g Normal 0-120 1 Stool Panel([facility]) 12/17/2020 [facility] Main Lab [address] [place] [address] [phone] Culture Stool And Gram Stain <pending> Stool Lactoferrin-polys by Ica NEGATIVE Normal 2 Clostridium Difficle By PCR <pending> Ova Parasites Conventional 12/17/2020 [facility] Main Lab [address] [place] [address] [phone] O+P Exam Final report Normal . 3 Result 1 (SEE NOTE) Normal . 4 Laboratory test finding 12/17/2020 [facility] Main Lab [address] [place] [address] [phone] Pancreatic Elastase Stool >500 Normal >200 5 Fat Fecal Qualitative 12/17/2020 [facility] Main Lab [address] [place] [address] [phone] Fats Neutral Normal Normal . 6 Fats Total Normal Normal . 7 Gastrointestinal (GI) Panel 12/17/2020 [facility] [address] [place] [address] [phone] Gastrointestinal (GI) Panel This Gastrointes <SEE NOTE > 8 1 Concentration Interpreta tion Follow-Up <16 - 50 ug/g Normal None >50 -120 ug/g Borderline Re-evaluate in 4-6 weeks >120 ug/g Abnormal Repeat as clinically indicated 2 3 These results were obtained using wet preparation(s) and trichrome stained smear. This test does not include testing for Cryptosporidium parvum, Cyclospora, or Microsporidia. 4 No ova, cysts, or parasites seen. . One negative specimen does not rule out the possibility of a parasitic infection. Performed at: [facility] [address] [place], [place] [id number] Pediatric Dietician: Catrachita Bryan MD, Phone: [phone] Performed at: [facility] [address] [place], [place] [address] Pediatric Dietician: Zenaida Rosales MD, Phone: [phone] 5 Result Units: ug Elast./g Severe Pancreatic Insufficiency: <100 Moderate Pancreatic Insufficiency: 100 - 200 Normal: >200 6 Normal (<60 Droplets/HPF) 7 Normal (<100 Droplets/HPF) 8 This Gastrointestinal PCR Pa ashley detects the following bacteria, parasites and viruses: Campylobacter (jejuni, coli and upsaliensis), Clostridium difficile (toxin A/B), Plesiomonas shigelloides, Salmonella, Yersinia enterocolitica, Vibrio (parahaemolyticus, vulnificus and cholerae), Vibrio clolerae, Enteroaggregative E. coli (EAEC), Enteropathogenis E. coli (EPEC), Enterotoxigenic E. coli (ETEC) it/st, Shiga-like producing E. coli (STEC) stx1/stc2, E.coli O157, Shigella/Enteroinvasive E. coli (EIEC), Cryptosporidium, Cyclospora cayetanensis, Entamoeba histolytica, Giardia lamblia, Adenovirus F 40/41, Astrovirus, Norovirus GI/GII, Rotavirus A and Sapovirus (I, II, IV, V). One negative specimen does not rule out the possibility of a parasitic infection. NEGATIVE by MULTIPLEXED NUCLEIC ACID PCR Procedures Date Code Description Status 12/15/2020 80757 Office/Outpatient New Moderate M DM 45-59 Minutes Completed 10/31/2020 72128 Office/Outpatient New Low MDM 30 -44 Minutes Completed 10/28/2020 35571 Office/Outpatient Established Lo w MDM 20-29 Min Completed 10/10/2020 61276 Office/Outpatient Established SF MDM 10-19 Min Completed 09/10/2020 97587 Office/Outpatient New Moderate M DM 45-59 Minutes Completed 09/05/2020 67561 Office/Outpatient Established Lo w MDM 20-29 Min Completed 08/29/2020 66285 Office/Outpatient Established Lo w MDM 20-29 Min Completed 08/19/2020 07434 Office/Outpatient New Moderate M DM 45-59 Minutes Completed Medical Devices Description No Information Available Encounters Type Date Location Provider Dx Diagnosis Office Visit 12/15/2020 8:30a [facility] Gastroenterology Mariusz Pete M.D. R19.7 Diarrhea, unspecified K50.80 Crohn's disease of both smal l and lg int w/o complications K25.9 Gastric ulcer, unsp as acute or chronic, w/o hemor or perf Office Visit 10/31/2020 10:30a [facility] Denys Martínez MD R06.83 Snoring L72.3 Sebaceous cyst Office Visit 10/28/2020 2:30p [facility] Pulmonary/Thoracic GIOVANI Bhagat R06.83 Snoring R40.0 Somnolence Office Visit 10/10/2020 2:45p [facility] Orthopedics Paul Zavala MD M79.661 Pain in right lower leg M79.89 Other specified soft tissue disorders Office Visit 09/10/2020 1:00p [facility] Pulmonary/Thoracic GIOVANI Bhagat R40.0 Somnolence R06.83 Snoring G47.30 Sleep apnea, unspecified Office Visit 09/05/2020 1:45p [facility] Orthopedics Paul Zavala MD M79.89 Other specified soft tissue disorders M79.661 Pain in right lower leg S93.402D Sprain of unspecified ligame nt of left ankle, subs encntr Office Visit 08/29/2020 11:30a [facility] Orthoped[facility] Paul Zavala MD S93.402A Sprain of unspecified ligament of left a nkle, init encntr Y93.68 Activity, volleyball (beach) (court) Office Visit 08/19/2020 2:00p [facility] Orthoped[facility] Paul Zavala MD M79.661 Pain in right lower leg M06.9 Rheumatoid arthritis, unspec ified M79.89 Other specified soft tissue disorders Assessments Date Code Description Provider 12/15/2020 R19.7 Diarrhea, unspecified Ed Pete M.D. 12/15/2020 K50.80 Crohn's disease of b oth small and large intestine without complications Ed Pete M.D. 12/15/2020 K25.9 Gastric ulcer, unspe cified as acute or chronic, without hemorrhage or perforation Ed Pete M.D. 10/31/2020 R06.83 Snoring Denys Martínez MD 10/31/2020 L72.3 Sebaceous cyst Denys Martínez MD 10/28/2020 R06.83 Snoring Rosalio Roland, PA 10/28/2020 R40.0 Somnolence Rosalio Watkins, PA 10/10/2020 M79.661 Pain in right lower leg Paul marcano MD 10/10/2020 M79.89 Other specified soft tissue diso rders Paul Zavala MD 09/10/2020 R40.0 Somnolence Rosalio Watkins, PA 09/10/2020 R06.83 Snoring Rosalio Roland, PA 09/10/2020 G47.30 Sleep apnea, unspecified Rosalio Watkins, PA 09/05/2020 M79.89 Other specified soft tissue diso rders Paul Zavala MD 09/05/2020 M79.661 Pain in right lower leg Paul marcano MD 09/05/2020 S93.402D Sprain of unspecifie d ligament of left ankle, subsequent encounter Paul Zavala MD 08/29/2020 S93.402A Sprain of unspecifie d ligament of left ankle, initial encounter Paul Zavala MD 08/29/2020 Y93.68 Activity, volleyball (beach) (co urt) Paul Zavala MD 08/19/2020 M79.661 Pain in right lower leg Paul marcano MD 08/19/2020 M06.9 Rheumatoid arthritis, unspecifie d Paul Zavala MD 08/19/2020 M79.89 Other specified soft tissue diso rders Paul Zavala MD Plan of Treatment No Information Available Functional Status Description No Information Available Mental Status Description No Information Available Referrals Refer to Reason for Referral Status Appt Date Denys Martínez M.D. ear nodule Closed 10/31/2020 [facility]NT [address] [phone] Abbey Mcadams F.N.P. FATIGUE Closed 09/10/2020 [facility] [address] [place] [id number] [phone] Ed Pete M.D. crohn's Scheduled 12/15 [facility] [address] [facility], [address] [place] [address] [phone] Paul Zavala M.D. Rt leg pain, ? stress fx Closed 08/19/2020 [address] [facility] [place] [address] [phone]
--- OUTSIDE RECORDS SUMMARY | 2021-02-10 11:38 | CCD | Continuity of Care Document ---
Author Author Koko PETE M.D. Organization Unknown Address [address] [place] [address], [address] [place] [address] Phone [phone] Care Team Providers Care Concrete Stone Finishing Supervisor Name Role Phone Litzy Cortez AUTM [phone] AUTM Unavailable Reba Denney M.D. AUTM [phone] AUTM Unavailable Problems Description No Information Available [...] Available Vital Signs Date Vital Result Comment 10/31/2020 10:33am Height 73 inches 6'1" Weight 180.00 lb BMI (Body Mass Index) 23.7 kg/m2 [place] Body Weight 184 lb Weight 81.648 kg BSA (Body Surface Area) 2.06 m2 10/28/2020 2:20pm BP Systolic 132 mmHg BP Diastolic 74 mmHg Heart Rate 94 /min O2 % BldC Oximetry 99 % Body Temperature 97.8 F Height 72 inches 6'0" Weight 183.00 lb BMI (Body Mass Index) 24.8 kg/m2 [place] Body Weight 178 lb Weight 83.009 kg BSA (Body Surface Area) 2.05 m2 Results Description No Information Available Procedures Date Code Description Status 10/31/2020 18057 Office/Outpatient New Low MDM 30 -44 Minutes Completed 10/28/2020 20816 Office/Outpatient Established Lo w MDM 20-29 Min Completed 10/10/2020 01119 Office/Outpatient Established SF MDM 10-19 Min Completed 09/10/2020 59817 Office/Outpatient New Moderate M DM 45-59 Minutes Completed 09/05/2020 14399 Office/Outpatient Established Lo w MDM 20-29 Min Completed 08/29/2020 54897 Office/Outpatient Established Lo w MDM 20-29 Min Completed 08/19/2020 85462 Office/Outpatient New Moderate M DM 45-59 Minutes Completed Medical Devices Description No Information Available Encounters Type Date Location Provider Dx Diagnosis Office Visit 10/31/2020 10:30a [facility] ENT Practice Denys Martínez MD R06.83 Snoring L72.3 Sebaceous cyst Office Visit 10/28/2020 2:30p [facility] Pulmonary/Thoracic GIOVANI Bhagat R06.83 Snoring R40.0 Somnolence Office Visit 10/10/2020 2:45p [facility] Orthopedics Paul Zavala MD M79.661 Pain in right lower leg M79.89 Other specified soft tissue disorders Office Visit 09/10/2020 1:00p [facility] Pulmonary/Thoracic GIOVANI Bhagat R40.0 Somnolence R06.83 Snoring G47.30 Sleep apnea, unspecified Office Visit 09/05/2020 1:45p [facility] Orthopedics Paul Zavala MD M79.89 Other specified soft tissue disorders M79.661 Pain in right lower leg S93.402D Sprain of unspecified ligame nt of left ankle, subs encntr Office Visit 08/29/2020 11:30a [facility] Orthopedics Paul Zavala MD S93.402A Sprain of unspecified ligament of left a nkle, init encntr Y93.68 Activity, volleyball ([employer]) (court) Office Visit 08/19/2020 2:00p [facility] Orthopedics Paul Zavala MD M79.661 Pain [...] Denys Martínez MD 10/28/2020 R06.83 Snoring Rosalio Watkins, PA 10/28/2020 R40.0 Somnolence Rosalio Roland, PA 10/10/2020 M79.661 Pain in right lower leg Paul marcano MD 10/10/2020 M79.89 Other specified soft tissue diso rders Paul Zavala MD 09/10/2020 R40.0 Somnolence Rosalio Watkins, PA 09/10/2020 R06.83 Snoring Rosalio Watkins, PA 09/10/2020 G47.30 Sleep apnea, unspecified Rosalio [...] Paul Zavala MD 08/29/2020 Y93.68 Activity, volleyball ([employer]) (co urt) Paul Zavala MD 08/19/2020 M79.661 Pain in right lower leg Paul marcano MD 08/19/2020 M06.9 Rheumatoid arthritis, unspecifie d Paul Zavala MD 08/19/2020 M79.89 Other specified soft tissue diso rders Paul Zavala MD Plan of Treatment 12/15/2020 - Ed Pete M.D.* R19.7 Diarrhea, unspecified * K50.80 Crohn's disease of both small and large intestine without complications * K25.9 Gastric ulcer, unspecified as acute or chronic, without hemorrhage or perforation * * New Labs:* Calprotectin Stool Sendout, Ordered: 12/15/20 * Stool Panel([facility]), Ordered: 12/15/20 * Pancreatic Elastase Stool Sendout, Ordered: 12/15/20 * Fat Fecal Qualitative, Ordered: 12/15/20 * Comments:* Impression:-- Chronic diarrhea worsening with prior know history of Crohns diease -- Needs further evaluation.-- History of gastric ulcer -- Needs follow up exam. ( patient currently on high dose pantoprazole 40 mg twice dialy). * Recommendations:* -- Educated patient about the prior test results and possible differential diagnoses. All questions answered. -- Will obtain stool testing for inflammation, infection and malabsorption. -- Will obtain labs from [facility]. -- Obtain prior records. -- Will schedule for EGD and diagnostic colonoscopy. The procedures, indications, risks (bleeding, perforation, infection, hypotension, respiratory depression, allergy, need for endotracheal intubation, surgery, or even ), benefits, limitations (e.g., missing a lesion), and the alternatives (radiographic studies) were explained to the patient who verbalized understanding and consented for the procedures. -- Return to GI clinic 2 weeks after the above. -- follow up with PMD for routine medical care and other age appropriate health maintenance. Functional Status Description No Information Available Mental Status Description No Information Available Referrals Refer to Reason for Referral Status Appt Date Denys Martínez M.D. ear nodule Closed 10/31/2020 [facility] ENT [address] [address] [phone] Abbey Mcadams F.N.P. FATIGUE Closed 09/10/2020 [facility] [address] [place], [place] [address] [phone] Ed Pete M.D. crohn's Scheduled 12/15 [facility] [address] [facility], [address] [place] [address] [phone] Paul Zavala M.D. Rt leg pain, ? stress fx Closed 08/19/2020 [address] [place] [address] [phone]
--- OUTSIDE RECORDS SUMMARY | 2021-02-10 11:38 | CCD ---
Author Author [employer] Organization [employer] Address Unknown Phone Unavailable Care Team Providers Care Business Services Specialist Sales Name Role Phone Zakiya Perez Unavailable PROBLEMS Type Condition ICD9-CM Code [id number] Code Onset Dates Condition S tatus W/U Status Risk SNOMED Code Notes Problem Psoriasis L40.9 Active confirmed 7449158 Problem Crohn's disease of colon without complication K50. 10 Active confirmed 1003477 Problem JRA (juvenile rheumatoid arthritis) M08.00 Acti ve confirmed [id number] ALLERGIES No Known Allergies ENCOUNTERS from 2000 to 2020-12-23 Encounter Location Date Provider Diagnosis [facility] Rheumatology [address] [place] [address] [place] [address] Dec, Zakiya BOYER (juvenile rheumatoid art hritis) M08.00 [...] Unknown Language: Question Answer Notes Languages spoken: Mongolian Alcohol Screening: Question Answer Notes Did you [...] Notes Start Da te End Date Status Methocarbamol 500 MG 1 tablet Orally every 4 hrs Not-Taking Cetirizine HCl 10 MG 1 tablet Orally Once a day (AM) Active Remeron 15 MG 1/2 tablet (7.5 mg) Orally before bedtime Active BD Insulin Syringe 29G X 1/2" 1 ML as directed for inj ection of methotrexate subcutaneously Weekly for 90 days Aug, Active Effexor XR 150 MG 1 capsule with food Orally Once a day for 30 day(s) Active predniSONE 5 MG 1-4 tablet Orally Once a day for 30 day(s) Jun, Not-Taking Remicade 100 MG as directed Intravenous every 8 weeks Active Acetaminophen 325 MG 2 tablets by [...] tablet Orally three times a day Not-Taking Leucovorin Calcium 5 MG 1 tablet Orally weekly for 28 day(s) Active Keflex 500 MG as directed Orally Act ricardo Lexapro 20 MG 1 tablet Orally Once a day for 30 day(s) Not-Taking Acetaminophen 325 MG 2 tablets before infusion Orally once for 1 dose(s) May, Active Erythromycin 2 % 1 application Externally Twice a day Not-Taking predniSONE 5 MG 1-2 tablets orally as needed for 30 days Active Meloxicam 7.5 MG 1-2 tablet Orally Once a day for 30 Days Active PROCEDURES No Information RESULTS No Results REASON FOR VISIT Medication Refill Request: Leucovorin MEDICAL (GENERAL) HISTORY Type Description Date Medical [...] Notes Treatment Notes Treatm ent Clinical Notes Dec, JRA (juvenile rheumatoid arthritis) (ICD-10 - M0 8.00) PLAN OF TREATMENT Medication Medication Name Sig Start Date Stop Date Leucovorin Calcium 5 MG 1 tablet Orally weekly for 28 day(s) Next Appt Details Provider Name:Zakiya Perez, 11:30:00 AM, [address] [place] [address], , [place], [place], [facility], Insurance Providers Payer Name Payer Address Payer Phone Insured Name Patient Relati onship to Insured Coverage Start Date Coverage End Date MEDICAID iPling [address] [facility] [id number] [address] self BCBS [place] [facility] PPO [id number] [facility] [place] [address] RONAL HOLLINS self
--- OUTSIDE RECORDS SUMMARY | 2021-02-10 11:38 | CCD ---
Author Author [employer] Organization [employer] Address Unknown Phone Unavailable Care Team Providers Care Exhibit Artist Name Role Phone Zakiya Perez Unavailable PROBLEMS Type Condition ICD9-CM Code [id number] Code Onset Dates Condition S tatus W/U Status Risk SNOMED Code Notes Problem Psoriasis L40.9 Active confirmed 7640373 Problem Crohn's disease of colon without complication K50. 10 Active confirmed 0587104 Problem JRA (juvenile rheumatoid arthritis) M08.00 Acti ve confirmed [id number] ALLERGIES No Known Allergies ENCOUNTERS from 2000 to 2020-12-10 Encounter Location Date Provider Diagnosis [facility] Rheumatology [address] [place] [address] [place] [address] Nov, Zakiya Perez IMMUNIZATIONS Vaccine Route Administration [...] Unknown Language: Question Answer Notes Languages spoken: Portuguese Alcohol Screening: Question Answer Notes Did you [...] RESULTS No Results REASON FOR VISIT Infusion MEDICAL (GENERAL) HISTORY Type Description Date Medical [...] Appt Details Provider Name:Zakiya Perez, 11:30:00 AM, [address] [place] [address], , [place], [address], Insurance Providers Payer Name Payer Address Payer Phone Insured Name Patient Relati onship to Insured Coverage Start Date Coverage End Date BCBS ELAINE KEVIN PPO [phone] [facility] GIOVANI RK [facility] [id number] [address] self MEDICAID [employer] [address] [facility] [id number] RON[place]INS self
--- OUTSIDE RECORDS SUMMARY | 2021-02-10 11:39 | CCD ---
Author Author [employer] Organization [employer] Address Unknown Phone Unavailable Care Team Providers Care Certified Optician Name Role Phone Zakiya Perez Unavailable PROBLEMS Type Condition ICD9-CM Code [id number] Code Onset Dates Condition S tatus W/U Status Risk SNOMED Code Notes Problem Psoriasis L40.9 Active confirmed 9480998 Problem Crohn's disease of colon without complication K50. 10 Active confirmed 0890819 Problem JRA (juvenile rheumatoid arthritis) M08.00 Acti ve confirmed [id number] ALLERGIES No Known Allergies ENCOUNTERS from 2000 to 2020-11-14 Encounter Location Date Provider Diagnosis [facility] Rheumatology [address] [place] [address] [place] [address] October, Zakiya Perez IMMUNIZATIONS Vaccine Route Administration Date [...] Unknown Language: Question Answer Notes Languages spoken: Belarusian Alcohol Screening: Question Answer Notes Did you [...] 1 tablet Orally every 4 hrs Not-Taking Voltaren 1 % 2 grams Transdermal four times daily for 14 day(s) Jul, Not-Taking Methotrexate Sodium 50 MG/2ML 0.7 ml subcutaneously weekly for 30 day s Active Protonix 40 MG 1 tablet Orally bid A ctive PredniSONE 5 MG 1-2 tablets orally as needed for 30 days Active Cetirizine HCl 10 MG 1 tablet Orally Once a day (AM) Active Acetaminophen 325 MG 2 tablets by mouth before infusion Jul, Not-Taking CloNIDine HCl ER 0.1 MG 1 tablet Orally three times a day Not-Taking PredniSONE 5 MG 1-4 tablet Orally Once a day for 30 day(s) Jun, Not-Taking Acetaminophen 325 MG 2 tablets before infusion Orally once for 1 dose(s) days May, Active Lamictal 100 MG 1 tablet Orally Once a day for 30 day(s) Not-Taking Remeron 15 MG 1/2 tablet (7.5 mg) Orally before bedtime Active Remicade 100 MG as directed Intravenous every 8 weeks Active Effexor XR 150 MG 1 capsule with food Orally Once a day for 30 day(s) Active Lexapro 20 MG 1 tablet Orally Once a day for 30 day(s) Not-Taking Leucovorin Calcium 5 MG 1 tablet Orally weekly for 30 days Active Erythromycin 2 % 1 application Externally Twice a day Not-Taking Folic Acid 1 MG 1 tablet Orally Once a day for 30 days Active PROCEDURES No Information RESULTS No Results REASON FOR VISIT appt MEDICAL (GENERAL) HISTORY Type Description Date [...] Once a day for 30 day(s) October Next Appt Details Provider Name:Zakiya Perez, 09:30:00 AM, [address] [place] [address], , [place], [address], Insurance Providers Payer Name Payer Address Payer Phone Insured Name Patient Relati onship to Insured Coverage Start Date Coverage End Date [id number] [facility] [place] [address] RONAL HOLLINS self MEDICAID [facility] [address] [facility] [id number] RON[place]INS self
--- OUTSIDE RECORDS SUMMARY | 2021-02-10 11:39 | CCD ---
Author Author [facility] Organization [facility] Address Unknown Phone Unavailable Care Team Providers Care [employer] Name Role Phone Linda Gorman MD Unavailable Unavailable Linda Gorman MD Unavailable Unavailable Linda Gorman MD Unavailable Unavailable Linda Gorman MD Unavailable Unavailable Linda Gorman MD Unavailable Unavailable Linda Gorman MD Unavailable Unavailable Linda Gorman MD Unavailable Unavailable Linda Gorman MD Unavailable Unavailable Linda Gorman MD Unavailable Unavailable Linda Gorman MD Unavailable Unavailable Linda Gorman MD Unavailable Unavailable Linda Gorman MD Unavailable Unavailable Linda Gorman MD Unavailable Unavailable Linda Gorman MD Unavailable Unavailable Linda Gorman MD Unavailable Unavailable Linda Gorman MD Unavailable Unavailable Linda Gorman MD Unavailable Unavailable Linda Gorman MD Unavailable Unavailable Linda Gorman MD Unavailable Unavailable Linda Gorman MD Unavailable Unavailable Linda Gorman MD Unavailable Unavailable Linda Gorman MD Unavailable Unavailable Linda Gorman MD Unavailable Unavailable Linda Gorman MD Unavailable Unavailable Linda Gorman MD Unavailable Unavailable Linda Gorman MD Unavailable Unavailable Linda Gorman MD Unavailable Unavailable Linda Gorman MD Unavailable Unavailable Linda Gorman MD Unavailable Unavailable Linda Gorman MD Unavailable Unavailable Linda Gorman MD Unavailable Unavailable Linda Gorman MD Unavailable Unavailable Linda Gorman MD Unavailable Unavailable Linda Gorman MD Unavailable Unavailable Linda Gorman MD Unavailable Unavailable Linda Gorman MD Unavailable Unavailable Linda Gorman MD Unavailable Unavailable Linda Gorman MD Unavailable Unavailable Linda Gorman MD Unavailable Unavailable Linda Gorman MD Unavailable Unavailable Linda Gorman MD Unavailable Unavailable Linda Gorman MD Unavailable Unavailable Linda Gorman MD Unavailable Unavailable Linda Gorman MD Unavailable Unavailable Linda Gorman MD Unavailable Unavailable Linda Gorman MD Unavailable Unavailable Linda Gorman MD Unavailable Unavailable Linda Gorman MD Unavailable Unavailable Linda Gorman MD Unavailable Unavailable Linda Gorman MD Unavailable Unavailable Linda Gorman MD Unavailable Unavailable Linda Gorman MD Unavailable Unavailable Linda Gorman MD Unavailable Unavailable Linda Gorman MD Unavailable Unavailable Linda Gorman MD Unavailable Unavailable Linda Gorman MD Unavailable Unavailable Linda Gorman MD Unavailable Unavailable Linda Gorman MD Unavailable Unavailable Linda Gorman MD Unavailable Unavailable Linda Gorman MD Unavailable Unavailable Linda Gorman MD Unavailable Unavailable Linda Gorman MD Unavailable Unavailable Linda Gorman MD Unavailable Unavailable Linda Gorman MD Unavailable Unavailable Linda Gorman MD Unavailable Unavailable Linda Gorman MD Unavailable Unavailable Linda Gorman MD Unavailable Unavailable Linda Gorman MD Unavailable Unavailable Linda Gorman MD Unavailable Unavailable Linda Gorman MD Unavailable Unavailable Linda Gorman MD Unavailable Unavailable Linda Gorman MD Unavailable Unavailable Linda Gorman MD Unavailable Unavailable Linda Gorman MD Unavailable Unavailable Linda Gorman MD Unavailable Unavailable Linda Gorman MD Unavailable Unavailable Linda Gorman MD Unavailable Unavailable Linda Gorman MD Unavailable Unavailable Linda Gorman MD Unavailable Unavailable Linda Gorman MD Unavailable Unavailable Linda Gorman MD Unavailable Unavailable Linda Gorman MD Unavailable Unavailable Linda Gorman MD Unavailable Unavailable Linda Gorman MD Unavailable Unavailable Linda Gorman MD Unavailable Unavailable Linda Gorman MD Unavailable Unavailable Linda Gorman MD Unavailable Unavailable Linda Gorman MD Unavailable Unavailable Linda Gorman MD Unavailable Unavailable Linda Gorman MD Unavailable Unavailable Linda Gorman MD Unavailable Unavailable Linda Gorman MD Unavailable Unavailable Torsten Martínez MD Unavailable Unavailable Torsten Martínez MD Unavailable Unavailable Torsten Martínez MD Unavailable Unavailable Torsten Martínez MD Unavailable Unavailable Torsten Martínez MD Unavailable Unavailable Torsten Martínez MD Unavailable Unavailable Torsten Martínez MD Unavailable Unavailable Torsten Martínez MD Unavailable Unavailable Torsten Martínez MD Unavailable Unavailable Torsten Martínez MD Unavailable Unavailable Torsten Martínez MD Unavailable Unavailable Torsten Martínez MD Unavailable Unavailable Torsten Martínez MD Unavailable Unavailable Abriss, Torsten Mcfarlane MD Unavailable Unavailable Abriss, Torsten Mcfarlane MD Unavailable Unavailable Abriss, Torsten Mcfarlane MD Unavailable Unavailable Abriss, Torsten Mcfarlane MD Unavailable Unavailable Abriss, Torsten Mcfarlane MD Unavailable Unavailable Mollison, Davis Miller MD Unavailable Unavailable Mollison, Davis Miller MD Unavailable Unavailable Mollison, Davis Miller MD Unavailable Unavailable Mollison, Davis Miller MD Unavailable Unavailable Mollison, Davis Miller MD Unavailable Unavailable Mollison, Davis Miller MD Unavailable Unavailable Mollison, Davis Miller MD Unavailable Unavailable Mollison, Davis Miller MD Unavailable Unavailable Mollison, Davis Miller MD Unavailable Unavailable Mollison, Davis Miller MD Unavailable Unavailable Mollison, Davis Miller MD Unavailable Unavailable Mollison, Davis Miller MD Unavailable Unavailable Mollison, Davis Miller MD Unavailable Unavailable Mollison, Davis Miller MD Unavailable Unavailable Mollison, Davis Miller MD Unavailable Unavailable Mollison, Davis Miller MD Unavailable Unavailable Mollison, Davis Miller MD Unavailable Unavailable Mollison, Davis Miller MD Unavailable Unavailable Mollison, Davis Miller MD Unavailable Unavailable Mollison, Davis Miller MD Unavailable Unavailable Mollison, Davis Miller MD Unavailable Unavailable Mollison, Davis Miller MD Unavailable Unavailable Mollison, Davis Miller MD Unavailable Unavailable Mollison, Davis Miller MD Unavailable Unavailable Mollison, Davis Miller MD Unavailable Unavailable Mollison, Davis Miller MD Unavailable Unavailable Mollison, Davis Miller MD Unavailable Unavailable Mollison, Davis Miller MD Unavailable Unavailable Mollison, Davis Miller MD Unavailable Unavailable Layo-Centner, Catalina Unavailable Unavailable Layo-Centner, Catalina Unavailable Unavailable Layo-Centner, Catalina Unavailable Unavailable Layo-Centner, Catalina Unavailable Unavailable Layo-Centner, Catalina Unavailable Unavailable Layo-Centner, Catalina Unavailable Unavailable Layo-Centner, Catalina Unavailable Unavailable Layo-Centner, Catalina Unavailable Unavailable Layo-Centner, Catalina Unavailable Unavailable Layo-Centner, Catalina Unavailable Unavailable Layo-Centner, Catalina Unavailable Unavailable Vimal PETE MD Unavailable Unavailable Vimal PETE MD Unavailable Unavailable Vimal PETE MD Unavailable Unavailable Vimal PETE MD Unavailable Unavailable Vimal PETE MD Unavailable Unavailable Vimal PETE MD Unavailable Unavailable Vimal PETE MD Unavailable Unavailable Vimal PETE MD Unavailable Unavailable Vimal PETE MD Unavailable Unavailable Vimal PETE MD Unavailable Unavailable Vimal PETE MD Unavailable Unavailable Vimal PETE MD Unavailable Unavailable Vimal PETE MD Unavailable Unavailable Vimal PETE MD Unavailable Unavailable Vimal PETE MD Unavailable Unavailable Vimal PETE MD Unavailable Unavailable Vimal PETE MD Unavailable Unavailable Vimal PETE MD Unavailable Unavailable Vimal PETE MD Unavailable Unavailable Vimal PETE MD Unavailable Unavailable Vimal PETE MD Unavailable Unavailable Vimal PETE MD Unavailable Unavailable Vimal PETE MD Unavailable Unavailable Vimal PEET MD Unavailable Unavailable Vimal PETE MD Unavailable Unavailable Vimal PETE MD Unavailable Unavailable Vimal PETE MD Unavailable Unavailable Vimal PETE MD Unavailable Unavailable Vimal PETE MD Unavailable Unavailable Vimal PETE MD Unavailable Unavailable Vimal PETE MD Unavailable Unavailable Vimal PETE MD Unavailable Unavailable MARTINEZ, M VILMA PA Unavailable Unavailable MARTINEZ, M VILMA PA Unavailable Unavailable MARTINEZ, M VILMA PA Unavailable Unavailable MARTINEZ, M VILMA PA Unavailable Unavailable MARTINEZ, M VILMA PA Unavailable Unavailable MARTINEZ, M VILMA PA Unavailable Unavailable MARTINEZ, M VILMA PA Unavailable Unavailable MARTINEZ, M VILMA PA Unavailable Unavailable MARTINEZ, M VILMA PA Unavailable Unavailable MARTINEZ, M VILMA PA Unavailable Unavailable MARTINEZ, M VILMA PA Unavailable Unavailable MARTINEZ, M VILMA PA Unavailable Unavailable MARTINEZ, M VILMA PA Unavailable Unavailable MARTINEZ, M VILMA PA Unavailable Unavailable MARTINEZ, M VILMA PA Unavailable Unavailable MARTINEZ, M VILMA PA Unavailable Unavailable MARTINEZ, M VILMA PA Unavailable Unavailable MARTINEZ, M VILMA PA Unavailable Unavailable MARTINEZ, M VILMA PA Unavailable Unavailable MARTINEZ, M VILMA PA Unavailable Unavailable MARTINEZ, M VILMA PA Unavailable Unavailable MARTINEZ, M VILMA PA Unavailable Unavailable MARTINEZ, M VILMA PA Unavailable Unavailable MARTINEZ, M VILMA PA Unavailable Unavailable MARTINEZ, M VILMA PA Unavailable Unavailable MARTINEZ, M VILMA PA Unavailable Unavailable MARTINEZ, M VILMA PA Unavailable Unavailable MARTINEZ, M VILMA PA Unavailable Unavailable MARTINEZ, M VILMA PA Unavailable Unavailable MARTINEZ, Kathy ESPARZA PA Unavailable Unavailable MARTINEZ, Kathy ESPARZA PA Unavailable Unavailable MARTINEZ, Kathy ESPARZA PA Unavailable Unavailable MARTINEZ, Kathy ESPARZA PA Unavailable Unavailable MARTINEZ, Kathy ESPARZA PA Unavailable Unavailable MARTINEZ, Kathy ESPARZA PA Unavailable Unavailable Re-disclosure Warning The records that you are about to access may contain information from federally-assisted alcohol or drug abuse programs. If such information is present, then the following federally mandated warning applies: This information has been disclosed to you from records protected by federal confidentiality rules (42 CFR part 2). The federal rules prohibit you from making any further disclosure of this information unless further disclosure is expressly permitted by the written consent of the person to whom it pertains or as otherwise permitted by 42 CFR part 2. A general authorization for the release of medical or other information is NOT sufficient for this purpose. The Federal rules restrict any use of the information to criminally investigate or prosecute any alcohol or drug abuse patient.The records that you are about to access may contain highly sensitive health information, the redisclosure of which is protected by Article 27-F of the [facility] Public Health law. If you continue you may have access to information: Regarding HIV / AIDS; Provided by facilities licensed or operated by the [facility] Office of Mental Health; or Provided by the [facility] Office for People With Developmental Disabilities. If such information is present, then the following [facility] mandated warning applies: This information has been disclosed to you from confidential records which are protected by state law. State law prohibits you from making any further disclosure of this information without the specific written consent of the person to whom it pertains, or as otherwise permitted by law. Any unauthorized further disclosure in violation of state law may result in a fine or detention sentence or both. A general authorization for the release of medical or other information is NOT sufficient authorization for further disc losure. Allergies and Adverse Reactions Type Description Substance Reaction Status Data Source(s ) Allergy to substance Allergy to substance Allergy to substance [facility] ([facility]) Allergy to substance Allergy to substance Allergy to substance [facility] ([facility]) Encounters Encounter Providers Location Date Indications Data Source(s ) [place] [address] [facility] [address] 01/27/2021 12:00:00 AM EDT eCW1 ([facility]) [place] [address] [facility] [address] 01/21/2021 12:00:00 AM EDT eCW1 ([facility]) [place] [address] [facility] [address] 01/15/2021 12:00:00 AM EDT eCW1 ([facility]) [place] [address] [facility] [address] 12/26/2020 12:00:00 AM EDT eCW1 ([facility]) [place] [address] [facility] [address] 12/23/2020 12:00:00 AM EDT eCW1 ([facility]) Outpatient Attender: YEFRI Billingsley/Franklin/Zurdo farris/Sheila 12/15/2020 08:30:00 AM EDT MED[facility] ([facility]) [place] [address] [facility] [address] 12/10/2020 12:00:00 AM EDT eCW1 ([facility]) (TV Rheum) Telephone Rheum [address] [place] [address] 12/10/2020 12:00:00 AM EDT eCW1 ([facility]) [place] [address] [facility] [address] 12/10/2020 12:00:00 AM EDT eCW1 ([facility]) [place] [address] [facility] [address] 12/10/2020 12:00:00 AM EDT eCW1 ([facility]) [place] [address] [facility] [address] 12/08/2020 12:00:00 AM EDT eCW1 ([facility]) [place] [address] [facility] [address] 11/27/2020 12:00:00 AM EDT eCW1 ([facility]) [place] [address] [facility] [address] 11/13/2020 12:00:00 AM EDT eCW1 ([facility]) [place] [address] [facility] [address] 11/13/2020 12:00:00 AM EDT eCW1 ([facility]) [place] [address] [facility] [address] 11/13/2020 12:00:00 AM EDT eCW1 ([facility]) Outpatient Attender: Denys Martínez MD Jose Cruz/Smoaks/Tres/Re indl 10/31/2020 10:30:00 AM EDT MEDENT ([facility]) Outpatient Attender: VILMA MATUTE Jose Cruz/Smoaks/Tres/Rein dl 10/28/2020 02:30:00 PM EDT MED[facility] ([facility]) Outpatient Attender: Paul Parkinsonang/Smoaks/Tres/Re indl 10/10/2020 02:45:00 PM EDT MED[facility] ([facility]) Outpatient Attender: VILMA MATUTE Jose Cruz/Smoaks/Tres/Rein dl 09/10/2020 01:00:00 PM EDT [facility] ([facility]) Outpatient Attender: Paul Billingsley/Smoaks/Tres/Re indl 09/05/2020 01:45:00 PM EDT MED[facility] ([facility]) Outpatient Attender: Paul Billingsley/Smoaks/Tres/Re indl 08/29/2020 10:30:00 AM EST [facility] ([facility]) Outpatient Attender: Paul Billingsley/Smoaks/Tres/Re indl 08/19/2020 01:00:00 PM EST [facility] ([facility]) [place] [address] [facility] [address] 08/12/2020 12:00:00 AM EST eCW1 ([facility]) [place] [address] [facility] [address] 08/12/2020 12:00:00 AM EST eCW1 ([facility]) AMALIA Santiago: [address] [place] [address], Ph. Attender: Catalina Sutton [facility] Medical 07/15/2020 12:00:00 AM EST [facility] ([facility]) Paul Gorman MD: [address] [place] [address], Ph. Attender: Paul Gorman MD [facility] Medical 06/17/2020 12:00:00 AM EST [facility] ([facility]) Paul Gorman MD: [address] [place] [address], Ph. Attender: Paul Gorman MD [facility] Medical 06/17/2020 12:00:00 AM EST [place] ([facility]) [place] [address] [facility] [address] 06/10/2020 12:00:00 AM EST eCW1 ([facility]) Unknown [address] [facility] [address] 06/05/2020 12:00:00 AM EST eCW1 ([facility]) (TV Rheum) Telephone Rheum [address] [place] [address] 06/05/2020 12:00:00 AM EST eCW1 ([facility]) Outpatient [address] [facility] [address] 06/05/2020 12:00:00 AM EST [facility]CW1 [facility] [place]) Unknown [address] [facility] [address] 06/05/2020 12:00:00 AM EST eCW1 ([facility] [place]) Unknown [address] [facility] [address] 06/05/2020 12:00:00 AM EST eCW1 ([facility]) [facility] Rheumatology [address] [place] [address] 12/19/2019 12:00:00 AM EDT eCW1 ([facility]) Immunizations Vaccine Date Status Description Data Source(s) COVID-19, mRNA, LNP-S, PF, 100 mcg/0.5 mL dose 07/15/2020 03 :57:44 PM EST completed 10.5 mL [facility] ([facility]) Moderna #2 dose COVID-19(given elsewhere) SARSCOV2 VAC 100MCG/0.5ML IM 07/15/2020 03:57:00 PM EST completed eCW1 ([facility]) Moderna #2 dose COVID-19(given elsewhere) SARSCOV2 VAC 100MCG/0.5ML IM 07/15/2020 03:57:00 PM EST completed eCW1 ([facility]) Moderna #2 dose COVID-19(given elsewhere) SARSCOV2 VAC 100MCG/0.5ML IM 07/15/2020 03:57:00 PM EST completed eCW1 ([facility]) Moderna #2 dose COVID-19(given elsewhere) SARSCOV2 VAC 100MCG/0.5ML IM 07/15/2020 03:57:00 PM EST completed eCW1 ([facility]) Moderna #2 dose COVID-19(given elsewhere) SARSCOV2 VAC 100MCG/0.5ML IM 07/15/2020 03:57:00 PM EST completed eCW1 ([facility]) Moderna #2 dose COVID-19(given elsewhere) SARSCOV2 VAC 100MCG/0.5ML IM 07/15/2020 03:57:00 PM EST completed eCW1 ([facility]) Moderna #2 dose COVID-19(given elsewhere) SARSCOV2 VAC 100MCG/0.5ML IM 07/15/2020 03:57:00 PM EST completed eCW1 ([facility]) Moderna #2 dose COVID-19(given elsewhere) SARSCOV2 VAC 100MCG/0.5ML IM 07/15/2020 03:57:00 PM EST completed eCW1 ([facility]) Moderna #2 dose COVID-19(given elsewhere) SARSCOV2 VAC 100MCG/0.5ML IM 07/15/2020 03:57:00 PM EST completed eCW1 ([facility]) Moderna #2 dose COVID-19(given elsewhere) SARSCOV2 VAC 100MCG/0.5ML IM 07/15/2020 03:57:00 PM EST completed eCW1 ([facility]) Moderna #2 dose COVID-19(given elsewhere) SARSCOV2 VAC 100MCG/0.5ML IM 07/15/2020 03:57:00 PM EST completed eCW1 ([facility]) Moderna #2 dose COVID-19(given elsewhere) SARSCOV2 VAC 100MCG/0.5ML IM 07/15/2020 03:57:00 PM EST completed eCW1 ([facility]) Moderna #2 dose COVID-19(given elsewhere) SARSCOV2 VAC 100MCG/0.5ML IM 07/15/2020 03:57:00 PM EST completed eCW1 ([facility]) Moderna #2 dose COVID-19(given elsewhere) SARSCOV2 VAC 100MCG/0.5ML IM 07/15/2020 03:57:00 PM EST completed eCW1 ([facility]) COVID-19 VACCINE Moderna 07/15/2020 12:00:00 AM EST completed [employer] Vaccine Series Complete: YESThis Data wa s Submitted to [facility] Via [employer]. COVID-19, mRNA, LNP-S, PF, 100 mcg/0.5 mL dose 06/18/2020 07 :56:30 AM EST completed 06/18/20200.5 mL [facility] ([facility]) COVID-19, mRNA, LNP-S, PF, 100 mcg/0.5 mL dose 06/18/2020 07 :56:30 AM EST completed 12/30/34029.5 mL [facility] ([facility]) Moderna #1 dose COVID-19(given elsewhere) SARSCOV2 VAC 100MCG/0.5ML IM 06/18/2020 07:56:00 AM EST completed eCW1 ([facility]) Moderna #1 dose COVID-19(given elsewhere) SARSCOV2 VAC 100MCG/0.5ML IM 06/18/2020 07:56:00 AM EST completed eCW1 ([facility]) Moderna #1 dose COVID-19(given elsewhere) SARSCOV2 VAC 100MCG/0.5ML IM 06/18/2020 07:56:00 AM EST completed eCW1 ([facility]) Moderna #1 dose COVID-19(given elsewhere) SARSCOV2 VAC 100MCG/0.5ML IM 06/18/2020 07:56:00 AM EST completed eCW1 ([facility]) Moderna #1 dose COVID-19(given elsewhere) SARSCOV2 VAC 100MCG/0.5ML IM 06/18/2020 07:56:00 AM EST completed eCW1 ([facility]) Moderna #1 dose COVID-19(given elsewhere) SARSCOV2 VAC 100MCG/0.5ML IM 06/18/2020 07:56:00 AM EST completed eCW1 ([facility]) Moderna #1 dose COVID-19(given elsewhere) SARSCOV2 VAC 100MCG/0.5ML IM 06/18/2020 07:56:00 AM EST completed eCW1 ([facility]) Moderna #1 dose COVID-19(given elsewhere) SARSCOV2 VAC 100MCG/0.5ML IM 06/18/2020 07:56:00 AM EST completed eCW1 ([facility]) Moderna #1 dose COVID-19(given elsewhere) SARSCOV2 VAC 100MCG/0.5ML IM 06/18/2020 07:56:00 AM EST completed eCW1 ([facility]) Moderna #1 dose COVID-19(given elsewhere) SARSCOV2 VAC 100MCG/0.5ML IM 06/18/2020 07:56:00 AM EST completed eCW1 ([facility]) Moderna #1 dose COVID-19(given elsewhere) SARSCOV2 VAC 100MCG/0.5ML IM 06/18/2020 07:56:00 AM EST completed eCW1 ([facility]) Moderna #1 dose COVID-19(given elsewhere) SARSCOV2 VAC 100MCG/0.5ML IM 06/18/2020 07:56:00 AM EST completed eCW1 ([facility]) Moderna #1 dose COVID-19(given elsewhere) SARSCOV2 VAC 100MCG/0.5ML IM 06/18/2020 07:56:00 AM EST completed eCW1 ([facility]) Moderna #1 dose COVID-19(given elsewhere) SARSCOV2 VAC 100MCG/0.5ML IM 06/18/2020 07:56:00 AM EST completed eCW1 ([facility]) COVID-19 VACCINE Moderna 06/17/2020 12:00:00 AM EST completed [employer] Vaccine Series Complete: NOThis Data was Submitted to [facility] Via [employer]. Medications Medication Brand Name Start Date Product Form Dose Route Admi nistrative Instructions Pharmacy Instructions Status Indications Reaction Description Data Source(s) Diclofenac Sodium 0.01 MG/MG Topical Gel Diclofenac So dium 1 % Diclofenac Sodium 1 % 01/21/2021 12:00:00 AM EDT active Diclofenac Sodium 1 % eCW1 ([facility]) Diclofenac Sodium 0.01 MG/MG Topical Gel Diclofenac So dium 1 % Diclofenac Sodium 1 % 01/21/2021 12:00:00 AM EDT active Diclofenac Sodium 1 % eCW1 ([facility]) Folic Acid 1 MG Oral Tablet Folic Acid 1 MG 01/21/2021 12:00:00 AM EDT 3.0 {tablet} active Folic Acid 1 MG eCW1 ([facility]) Folic Acid 1 MG Oral Tablet Folic Acid 1 MG 01/21/2021 12:00:00 AM EDT active Folic Acid 1 MG eCW1 ([facility]) Diclofenac Sodium 0.01 MG/MG Topical Gel Diclofenac So dium 1 % Diclofenac Sodium 1 % 01/21/2021 12:00:00 AM EDT active Diclofenac Sodium 1 % eCW1 ([facility]) Folic Acid 1 MG Oral Tablet Folic Acid 1 MG 01/21/2021 12:00:00 AM EDT active Folic Acid 1 MG eCW1 ([facility]) meloxicam 7.5 MG Oral Tablet Meloxicam 7.5 MG Meloxicam 7.5 MG 11/13/2020 12:00:00 AM EDT 1.0 {tablet} active Me loxicam 7.5 MG eCW1 ([facility]) meloxicam 7.5 MG Oral Tablet Meloxicam 7.5 MG Meloxicam 7.5 MG 11/13/2020 12:00:00 AM EDT 1.0 {tablet} active Me loxicam 7.5 MG eCW1 ([facility]) meloxicam 7.5 MG Oral Tablet Meloxicam 7.5 MG Meloxicam 7.5 MG 11/13/2020 12:00:00 AM EDT 1.0 {tablet} active Me loxicam 7.5 MG eCW1 ([facility]) meloxicam 7.5 MG Oral Tablet Meloxicam 7.5 MG Meloxicam 7.5 MG 11/13/2020 12:00:00 AM EDT 1.0 {tablet} active Me loxicam 7.5 MG eCW1 ([facility]) meloxicam 7.5 MG Oral Tablet Meloxicam 7.5 MG Meloxicam 7.5 MG 11/13/2020 12:00:00 AM EDT 1.0 {tablet} active eCW1 ([facility]) Acetaminophen 325 MG Oral Tablet Acetaminophen 325 MG 2019 12:00:00 AM EST active Acetaminophen 325 MG eCW1 ([facility]) Acetaminophen 325 MG Oral Tablet Acetaminophen 325 MG 2019 12:00:00 AM EST active Acetaminophen 325 MG eCW1 ([facility]) Acetaminophen 325 MG Oral Tablet Acetaminophen 325 MG 2019 12:00:00 AM EST active Acetaminophen 325 MG eCW1 ([facility]) Acetaminophen 325 MG Oral Tablet Acetaminophen 325 MG 2019 12:00:00 AM EST active Acetaminophen 325 MG eCW1 (Formerly [facility]) Acetaminophen 325 MG Oral Tablet Acetaminophen 325 MG 2019 12:00:00 AM EST active Acetaminophen 325 MG eCW1 (Formerly [facility]) Acetaminophen 325 MG Oral Tablet Acetaminophen 325 MG 2019 12:00:00 AM EST active Acetaminophen 325 MG eCW1 (Formerly [facility]) Acetaminophen 325 MG Oral Tablet Acetaminophen 325 MG 2019 12:00:00 AM EST active Acetaminophen 325 MG eCW1 (Formerly [facility]) Acetaminophen 325 MG Oral Tablet Acetaminophen 325 MG 2019 12:00:00 AM EST active Acetaminophen 325 MG eCW1 ([facility]ly [facility]) Acetaminophen 325 MG Oral Tablet Acetaminophen 325 MG 2019 12:00:00 AM EST active Acetaminophen 325 MG eCW1 ([facility]ly [facility]) Acetaminophen 325 MG Oral Tablet Acetaminophen 325 MG 2019 12:00:00 AM EST active Acetaminophen 325 MG eCW1 ([facility]ly [facility]) Acetaminophen 325 MG Oral Tablet Acetaminophen 325 MG 2019 12:00:00 AM EST active eCW1 (Formerly [facility]) Acetaminophen 325 MG Oral Tablet Acetaminophen 325 MG 2019 12:00:00 AM EST active Acetaminophen 325 MG eCW1 (Formerly [facility]) Acetaminophen 325 MG Oral Tablet Acetaminophen 325 MG 2019 12:00:00 AM EST active Acetaminophen 325 MG eCW1 ([facility]ly [facility]) Acetaminophen 325 MG Oral Tablet Acetaminophen 325 MG 2019 12:00:00 AM EST active Acetaminophen 325 MG eCW1 ([facility]ly [facility]) Acetaminophen 325 MG Oral Tablet Acetaminophen 325 MG 2019 12:00:00 AM EST active Acetaminophen 325 MG eCW1 ([facility]ly [facility]) Acetaminophen 325 MG Oral Tablet Acetaminophen 325 MG 2019 12:00:00 AM EST active Acetaminophen 325 MG eCW1 ([facility]ly [facility]) Acetaminophen 325 MG Oral Tablet Acetaminophen 325 MG 2019 12:00:00 AM EST active Acetaminophen 325 MG eCW1 ([facility]ly [facility]) Acetaminophen 325 MG Oral Tablet Acetaminophen 325 MG 2019 12:00:00 AM EST active Acetaminophen 325 MG eCW1 ([facility]ly [facility]) Acetaminophen 325 MG Oral Tablet Acetaminophen 325 MG 2019 12:00:00 AM EST active Acetaminophen 325 MG eCW1 ([facility]ly [facility]) Acetaminophen 325 MG Oral Tablet Acetaminophen 325 MG 2019 12:00:00 AM EST active Acetaminophen 325 MG eCW1 ([facility]ly [facility]) Acetaminophen 325 MG Oral Tablet Acetaminophen 325 MG 2019 12:00:00 AM EST active Acetaminophen 325 MG eCW1 ([facility]ly [facility]) Acetaminophen 325 MG Oral Tablet Acetaminophen 325 MG 2019 12:00:00 AM EST active Acetaminophen 325 MG eCW1 ([facility]ly [facility]) Insurance Providers Payer name Policy type / Coverage type Policy ID Covered democrat ID Covered democrat's relationship to mckeon Policy Mckeon [id number] [place] [id number] [place]/[id number] [id number] [place]/[id number] SP [id number] [place] [id number] SP [id number] BS 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 [id number] MO2 [id number] [place]/[id number] SP [id number] MEDICAID [id number] SP [id number] EXCELLUS BCBS B [id number] S [id number] MEDICAID M [id number] S [id number] [place]/[id number] MO2 [id number] [employer] BCBS B [id number] S [id number] [facility] 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 [id number] [id number] Problems, Conditions, and Diagnoses No Information Surgeries/Procedures Procedure Description Date Indications Data Source(s) OFFICE OUTPATIENT NEW 45 MINUTES 12/15/2020 12:00:00 A M LORENA KEITA ([facility], ) OFFICE OUTPATIENT NEW 30 MINUTES 10/31/2020 12:00:00 A M LORENA KEITA ([facility], ) OFFICE OUTPATIENT VISIT 15 MINUTES 10/28/2020 12:00:00 AM EDT [facility] ([facility]) OFFICE OUTPATIENT VISIT 10 MINUTES 10/10/2020 12:00:00 AM EDT [facility] ([facility]) OFFICE OUTPATIENT NEW 45 MINUTES 09/10/2020 12:00:00 A M EDT [facility] ([facility]) OFFICE OUTPATIENT VISIT 15 MINUTES 09/05/2020 12:00:00 AM EDT [facility] ([facility]) OFFICE OUTPATIENT VISIT 15 MINUTES 08/29/2020 12:00:00 AM EST [facility] ([facility]) OFFICE OUTPATIENT NEW 45 MINUTES 08/19/2020 12:00:00 A M EST [facility] ([facility]) Results ID Date Data Source [id number] 02/05/2021 10:45:00 AM EDT [facility] Name Value Range Interpretation Code Description Data Frida rce(s) Supporting Document(s) SARS-CoV-2 (COVID-19) RNA [Presence] in Respiratory specimen by LUCHO with probe detection Not Detected [facility] This lab was ordered by [facility] and reported by [facility]. ID Date Data Source [id number] 12/17/2020 06:41:00 AM EDT [facility] ([facility]) Name Value Range Interpretation Code Description Data Frida rce(s) Supporting Document(s) Gastrointestinal (GI) Panel Laboratory test result [facility] ([facility]) This Gastrointestinal PCR Panel detects the following bacteria, parasites and viruses: [...] infection. NEGATIVE by MULTIPLEXED NUCLEIC ACID PCR ID Date Data Source [id number] 12/17/2020 06:41:00 AM EDT [facility] ([facility]) Name Value Range Interpretation Code Description Data Frida rce(s) Supporting Document(s) Fats Neutral Laboratory test result Normal (applies to non -numeric results) [facility] ([facility]) <content>Normal (<60 Droplets/HPF)</cont ent>
<content></content> Fats Total Laboratory test result Normal (applies to non-n umeric results) [facility] ([facility]) <content>Normal (<100 Droplets/HPF)</con tent>
<content></content> ID Date Data Source [id number] 12/17/2020 06:41:00 AM EDT [facility] ([facility]) Name Value Range Interpretation Code Description Data Frida rce(s) Supporting Document(s) Elastase.pancreatic [Mass/mass] in Stool Laboratory test result Normal (applies to non-numeric results) [facility] ([facility]) <content>Result Units: ug Elast./g</cont ent>
<content>Severe Pancreatic Insufficiency: <100</content>
<content>Moderate Pancreatic Insufficiency: 100 - 200</content>
<content>Normal: >200</content>
<content></content> ID Date Data Source [id number] 12/17/2020 06:41:00 AM EDT [facility] ([facility]) Name Value Range Interpretation Code Description Data Frida rce(s) Supporting Document(s) O+P Exam Laboratory test result Normal (applies to non-n umeric results) [facility] ([facility]) These results were obtained using wet pr eparation(s) and trichrome stained smear. This test does not include testing for Cryptosporidium parvum, Cyclospora, or Microsporidia. Result 1 Laboratory test result Normal (applies to non-n umeric results) [facility] ([facility], ) No ova, cysts, or parasites seen. . One negative specimen does not rule out the possibility of a parasitic infection. Performed at: - [facility] [address] [id number] Otolaryngologist: Catrachita Bryan MD, Phone: [phone] Performed at: [facility] [id number] Otolaryngologist: Zenaida Rosales MD, Phone: [phone] ID Date Data Source [id number] 12/17/2020 06:41:00 AM EDT [facility] ([facility]) Name Value Range Interpretation Code Description Data Frida rce(s) Supporting Document(s) Lactoferrin [Presence] in Stool by Immunoassay Laboratory test r esult Normal (applies to non-numeric results) [facility] ([facility]) Bacteria identified in Stool by Culture Laboratory test result [facility] ([facility]) Clostridium difficile DNA [Presence] in Unspecified specimen by Probe and target amplification method Laboratory test result [facility] ([facility]) ID Date Data Source [id number] 12/17/2020 06:41:00 AM EDT [facility] ([facility]) Name Value Range Interpretation Code Description Data Frida rce(s) Supporting Document(s) Calprotectin [Mass/mass] in Stool 66 ug/g 0-120 Normal (applies to non-numeric results) [facility] ([facility]) <content>Concentration Interpretatio n Follow-Up</content>
<content><16 - 50 ug/g Normal None</content>
<content>>50 -120 ug/g Borderline Re-evaluate in 4-6 weeks</content>
<content>>120 ug/g Abnormal Repeat as clinically</content>
<content>indicated</content>
<content></content> ID Date Data Source [facility] Tibia/Fibula (lower leg) 08/13/2020 12:00:00 AM EST eCW1 ([facility]ly [facility]) Name Value Range Interpretation Code Description Data Frida rce(s) Supporting Document(s) [facility] Tibia/Fibula (lower leg) e CW1 (Formerly [facility]) ID Date Data Source QUANTIFERON TB GOLD TEST 06/05/2020 12:00:00 AM EST eCW1 ([facility]) Name Value Range Interpretation Code Description Data Frida rce(s) Supporting Document(s) QUANTIFERON TB GOLD TEST eCW1 (Formerly [facility]) ID Date Data Source LIVER PROFILE 06/05/2020 12:00:00 AM EST eCW1 ([facility]) Name Value Range Interpretation Code Description Data Frida rce(s) Supporting Document(s) 11 7-37 AST/SGOT eCW1 ([facility]) 0.3 0.2-1.0 BILIRUBIN,TOTAL eCW1 ([facility]) 86 45-117 ALKALINE PHOSPHATASE eCW1 (Formerly [facility]) 25 12-78 ALT/SGPT eCW1 ([facility]) 7.7 6.4-8.2 TOTAL PROTEIN eCW1 ([facility]ly [facility]) 1.3 ALBUMIN/GLOBULIN RATIO eCW1 ([facility]) 4.4 3.2-5.2 ALBUMIN eCW1 ([facility]) 0.1 0.0-0.2 BILIRUBIN,DIRECT eCW1 ([facility]) ID Date Data Source ERYTHROCYTE SEDIMENTATION RATE 06/05/2020 12:00:00 AM EST eC W1 ([facility]ly [facility]) Name Value Range Interpretation Code Description Data Frida rce(s) Supporting Document(s) 6 0-15 ERYTHROCYTE SEDIMENTATION RATE eCW1 ([facility]ly [facility]) ID Date Data Source C REACTIVE PROTEIN QUANTITATIV (At [facility]) 06/05/2020 12:00 :00 AM EST eCW1 ([facility]ly [facility]) Name Value Range Interpretation Code Description Data Frida rce(s) Supporting Document(s) < 0.30 0.00-0.30 C REACTIVE PROTEIN QUANTI TATIV eCW1 ([facility]ly [facility]) Procedure Social History Code Duration Value Status Description Data Source(s ) Smoking 01/21/2021 12:00:00 AM EDT Former Smoker completed Former Smoker eCW1 ([facility]ly [facility]) Smoking 01/21/2021 12:00:00 AM EDT Former Smoker completed Former Smoker eCW1 ([facility]ly [facility]) Smoking 01/21/2021 12:00:00 AM EDT Former Smoker completed Former Smoker eCW1 ([facility]ly [facility]) Smoking 12/10/2020 12:00:00 AM EDT Former Smoker completed Former Smoker eCW1 ([facility]ly [facility]) Smoking 12/10/2020 12:00:00 AM EDT Former Smoker completed Former Smoker eCW1 ([facility]ly [facility]) Smoking 12/10/2020 12:00:00 AM EDT Former Smoker completed Former Smoker eCW1 ([facility]ly [facility]) Smoking 12/10/2020 12:00:00 AM EDT Former Smoker completed Former Smoker eCW1 ([facility]ly [facility]) Smoking 12/10/2020 12:00:00 AM EDT Former Smoker completed Former Smoker eCW1 ([facility]ly [facility]) Smoking 12/10/2020 12:00:00 AM EDT Former Smoker completed Former Smoker eCW1 ([facility]ly [facility]) Smoking 11/13/2020 12:00:00 AM EDT Former Smoker completed Former Smoker eCW1 ([facility]ly [facility]) Smoking 11/13/2020 12:00:00 AM EDT Former Smoker completed Former Smoker eCW1 ([facility]ly [facility]) Smoking 11/13/2020 12:00:00 AM EDT Former Smoker completed Former Smoker eCW1 ([facility]ly [facility]) Smoking 11/13/2020 12:00:00 AM EDT Former Smoker completed Former Smoker eCW1 ([facility]ly [facility]) Smoking 11/13/2020 12:00:00 AM EDT Former Smoker completed Former Smoker eCW1 ([facility]ly [facility]) Smoking 10/28/2020 12:00:00 AM EDT Patient is a former smoker completed Patient is a former smoker [facility] ([facility] ) Smoking 08/12/2020 12:00:00 AM EST Former Smoker completed Former Smoker eCW1 ([facility]ly [facility]) Smoking 08/12/2020 12:00:00 AM EST Former Smoker completed Former Smoker eCW1 ([facility]ly [facility]) Smoking 06/05/2020 12:00:00 AM EST Former Smoker completed Former Smoker eCW1 ([facility]ly [facility]) Smoking 06/05/2020 12:00:00 AM EST Former Smoker completed Former Smoker eCW1 ([facility]) Smoking 06/05/2020 12:00:00 AM EST Former Smoker completed Former Smoker eCW1 ([facility]) Smoking 06/05/2020 12:00:00 AM EST Former Smoker completed Former Smoker eCW1 ([facility]ly [facility]) Smoking 06/05/2020 12:00:00 AM EST Former Smoker completed Former Smoker eCW1 ([facility]ly [facility]) Smoking 06/05/2020 12:00:00 AM EST Former Smoker completed Former Smoker eCW1 ([facility]ly [facility]) Vital Signs ID Date Data Source UNK Name Value Range Interpretation Code Description Data Source(s) Body temperature 98.6 [degF] 98.6 [degF] eCW1 ( [facility]) Systolic blood pressure 120 mm[Hg] 120 mm[Hg] e CW1 ([facility]) Diastolic blood pressure 64 mm[Hg] 64 mm[Hg] eCW1 ([facility]) Body weight 176.4 [lb_av] 176.4 [lb_av] eCW1 ([facility]) Body weight 80.01 kg 80.01 kg W1 ([facility]) Body height 73 [in_i] 73 [in_i] eCW1 ([facility]) Body mass index (BMI) [Ratio] 23.27 kg/m2 23.27 kg/m2 eCW1 ([facility]) Heart rate 93 /min 93 /min eCW1 ([facility]) Respiratory rate 18 /min 18 /min eCW1 ([facility]) Body mass index (BMI) [Ratio] 23.1 kg/m2 23.1 k g/m2 [facility] ([facility] ) [place] body weight 184 [lb_av] 184 [lb_av] [facility] T ([facility], ) Body weight 79.380 kg 79.380 kg [facility] ([facility]) Body surface area Derived from formula 2.03 m2 2.03 m2 [facility] ([facility]) Systolic blood pressure 122 mm[Hg] 122 mm[Hg] M [facility]ENT ([facility]) Diastolic blood pressure 66 mm[Hg] 66 mm[Hg] [facility] ([facility]) Body height 73 [in_i] 73 [in_i] [facility] ([facility]) 6'1" Body weight 175.00 [lb_av] 175.00 [lb_av] [facility] T ([facility]) Body weight 179 [lb_av] 179 [lb_av] eCW1 ([facility]) Body weight 81.2 kg 81.2 kg eCW1 ([facility]) Body height 73 [in_i] 73 [in_i] eCW1 ([facility]) Body mass index (BMI) [Ratio] 23.61 kg/m2 23.61 kg/m2 eCW1 ([facility]) Heart rate 95 /min 95 /min eCW1 ([facility]) Respiratory rate 18 /min 18 /min eCW1 ([facility]) Body temperature 99.5 [degF] 99.5 [degF] eCW1 ( [facility]) Systolic blood pressure 108 mm[Hg] 108 mm[Hg] e CW1 ([facility]) Diastolic blood pressure 70 mm[Hg] 70 mm[Hg] eCW1 ([facility]) Systolic blood pressure 132 mm[Hg] 132 mm[Hg] e CW1 ([facility]) Body weight 184.8 [lb_av] 184.8 [lb_av] eCW1 ([facility]) Body weight 83.8 kg 83.8 kg eCW1 ([facility]) Diastolic blood pressure 70 mm[Hg] 70 mm[Hg] eCW1 ([facility]) Body height 73 [in_i] 73 [in_i] eCW1 ([facility]) Body mass index (BMI) [Ratio] 24.38 kg/m2 24.38 kg/m2 eCW1 ([facility]) Heart rate 118 /min 118 /min eCW1 ([facility]) Respiratory rate 18 /min 18 /min eCW1 ([facility]) Body temperature 99.7 [degF] 99.7 [degF] eCW1 ( [facility]) Body weight 180.00 [lb_av] 180.00 [lb_av] MED[facility] T ([facility]) [place] body weight 184 [lb_av] 184 [lb_av] [facility] T ([facility]) Body mass index (BMI) [Ratio] 23.7 kg/m2 23.7 k g/m2 [facility] ([facility]) Body height 73 [in_i] 73 [in_i] [facility] ([facility]) 6'1" Body weight 81.648 kg 81.648 kg [facility] ([facility]) Body surface area Derived from formula 2.06 m2 2.06 m2 [facility] ([facility]) Body mass index (BMI) [Ratio] 24.8 kg/m2 24.8 k g/m2 [facility] ([facility]) Heart rate 94 /min 94 /min [facility] ([facility]) Oxygen saturation in Arterial blood by Pulse oximetry 99 % 99 % [facility] ([facility]) Body temperature 97.8 [degF] 97.8 [degF] [facility] ([facility]) Body height 72 [in_i] 72 [in_i] [facility] ([facility]) 6'0" Systolic blood pressure 132 mm[Hg] 132 mm[Hg] [facility]) Diastolic blood pressure 74 mm[Hg] 74 mm[Hg] [facility] ([facility]) Body weight 183.00 [lb_av] 183.00 [lb_av] [facility] T ([facility]) [place] body weight 178 [lb_av] 178 [lb_av] [facility] T ([facility]) Body weight 83.009 kg 83.009 kg [facility] ([facility]) Body surface area Derived from formula 2.05 m2 2.05 m2 [facility] ([facility]) Heart rate 88 /min 88 /min [facility] ([facility]) Oxygen saturation in Arterial blood by Pulse oximetry 100 % 100 % [facility] ([facility]) Body mass index (BMI) [Ratio] 24.3 kg/m2 24.3 k g/m2 [facility] ([facility]) [place] body weight 178 [lb_av] 178 [lb_av] [facility] T ([facility]) Body weight 81.194 kg 81.194 kg [facility] ([facility]) Systolic blood pressure 128 mm[Hg] 128 mm[Hg] [facility] ([facility]) Diastolic blood pressure 79 mm[Hg] 79 mm[Hg] [facility] ([facility]) Respiratory rate 16 /min 16 /min [facility] ( [facility]) Body temperature 98.0 [degF] 98.0 [degF] [facility] ([facility]) Body height 72 [in_i] 72 [in_i] [facility] ([facility]) 6'0" Body weight 179.00 [lb_av] 179.00 [lb_av] [facility] T ([facility]) Body surface area Derived from formula 2.03 m2 2.03 m2 [facility] ([facility]) Systolic blood pressure 136 mm[Hg] 136 mm[Hg] [facility] Heart rate 96 /min 96 /min [facility] ([facility]) Oxygen saturation in Arterial blood by Pulse oximetry 98 % 98 % [facility] ([facility]) Body temperature 98.3 [degF] 98.3 [degF] [facility] ([facility]) Body height 72 [in_i] 72 [in_i] [facility] ([facility]) 6'0" Body weight 179.38 [lb_av] 179.38 [lb_av] [facility] T ([facility]) Body mass index (BMI) [Ratio] 24.3 kg/m2 24.3 k g/m2 [facility] ([facility]) [place] body weight 178 [lb_av] 178 [lb_av] [facility] T ([facility]) Body weight 81.365 kg 81.365 kg [facility] ([facility]) Body surface area Derived from formula 2.03 m2 2.03 m2 [facility] ([facility]) Diastolic blood pressure 78 mm[Hg] 78 mm[Hg] [facility] ([facility]) Systolic blood pressure 131 mm[Hg] 131 mm[Hg] [facility]) Diastolic blood pressure 68 mm[Hg] 68 mm[Hg] [facility] ([facility]) Heart rate 69 /min 69 /min [facility] ([facility]) Oxygen saturation in Arterial blood by Pulse oximetry 100 % 100 % [facility] ([facility]) Ra Body temperature 99.1 [degF] 99.1 [degF] [facility] ([facility]) Body height 73 [in_i] 73 [in_i] [facility] ([facility]) 6'1" Body weight 178.00 [lb_av] 178.00 [lb_av] [facility] T ([facility]) Body mass index (BMI) [Ratio] 23.5 kg/m2 23.5 k g/m2 [facility] ([facility]) [place] body weight 184 [lb_av] 184 [lb_av] [facility] T ([facility]) Body weight 80.741 kg 80.741 kg [facility] ([facility]) Body surface area Derived from formula 2.05 m2 2.05 m2 [facility] ([facility]) Body weight 178.00 [lb_av] 178.00 [lb_av] [facility] T ([facility]) Body temperature 98.3 [degF] 98.3 [degF] [facility] ([facility]) Body height 73 [in_i] 73 [in_i] [facility] ([facility]) 6'1" Body mass index (BMI) [Ratio] 23.5 kg/m2 23.5 k g/m2 [facility] [place] body weight 184 [lb_av] 184 [lb_av] [facility] T ([facility]) Body weight 80.741 kg 80.741 kg [facility] ([facility]) Body surface area Derived from formula 2.05 m2 2.05 m2 [facility] ([facility]) Body weight 178.0 [lb_av] 178.0 [lb_av] eCW1 ([facility]) Body weight 80.7 kg 80.7 kg W1 ([facility]) Body height 73 [in_i] 73 [in_i] eCW1 ([facility]) Body mass index (BMI) [Ratio] 23.48 kg/m2 23.48 kg/m2 W1 ([facility]) Heart rate 82 /min 82 /min eCW1 ([facility]) Respiratory rate 18 /min 18 /min eCW1 ([facility]) Body temperature 98.2 [degF] 98.2 [degF] eCW1 ( [facility]) Systolic blood pressure 118 mm[Hg] 118 mm[Hg] e CW1 ([facility]) Diastolic blood pressure 62 mm[Hg] 62 mm[Hg] eCW1 ([facility]) Body weight 166.8 [lb_av] 166.8 [lb_av] eCW1 ([facility]) Body weight 75.6 kg 75.6 kg eCW1 ([facility]) Body height 73 [in_i] 73 [in_i] eCW1 ([facility]) Body mass index (BMI) [Ratio] 22.00 kg/m2 22.00 kg/m2 W1 ([facility]) Heart rate 107 /min 107 /min eCW1 ([facility]) Respiratory rate 18 /min 18 /min eCW1 ([facility]) Body temperature 98.8 [degF] 98.8 [degF] eCW1 ( Formerly [facility]) Systolic blood pressure 112 mm[Hg] 112 mm[Hg] e CW1 (Formerly [facility]) Diastolic blood pressure 60 mm[Hg] 60 mm[Hg] eCW1 (Formerly [facility]) Patient Treatment Plan of Care Planned Activity Planned Date Details Description Data Source (s) Diclofenac Sodium 0.01 MG/MG Topical Gel 01/21/2021 12:00:00 AM EDT eCW1 (Formerly [facility]) Folic Acid 1 MG Oral Tablet 01/21/2021 12:00:00 AM EDT eCW1 (Formerly [facility]) Diclofenac Sodium 0.01 MG/MG Topical Gel 01/21/2021 12:00:00 AM EDT eCW1 (Formerly [facility]) Folic Acid 1 MG Oral Tablet 01/21/2021 12:00:00 AM EDT eCW1 ([facility]ly [facility]) Diclofenac Sodium 0.01 MG/MG Topical Gel 01/21/2021 12:00:00 AM EDT eCW1 ([facility]ly [facility]) Folic Acid 1 MG Oral Tablet 01/21/2021 12:00:00 AM EDT eCW1 (Formerly [facility]) meloxicam 7.5 MG Oral Tablet 11/13/2020 12:00:00 AM EDT eCW1 ([facility]ly [facility]) meloxicam 7.5 MG Oral Tablet 11/13/2020 12:00:00 AM EDT eCW1 ([facility]ly [facility]) meloxicam 7.5 MG Oral Tablet 11/13/2020 12:00:00 AM EDT eCW1 ([facility]) meloxicam 7.5 MG Oral Tablet 11/13/2020 12:00:00 AM EDT eCW1 ([facility]) meloxicam 7.5 MG Oral Tablet 11/13/2020 12:00:00 AM EDT eCW1 ([facility]) Acetaminophen 325 MG Oral Tablet 06/05/2020 12:00:00 AM EST eCW1 ([facility]) Acetaminophen 325 MG Oral Tablet 06/05/2020 12:00:00 AM EST eCW1 ([facility]) Acetaminophen 325 MG Oral Tablet 06/05/2020 12:00:00 AM EST eCW1 ([facility]) Acetaminophen 325 MG Oral Tablet 06/05/2020 12:00:00 AM EST eCW1 ([facility]) Acetaminophen 325 MG Oral Tablet 06/05/2020 12:00:00 AM EST eCW1 ([facility]) Acetaminophen 325 MG Oral Tablet 06/05/2020 12:00:00 AM EST eCW1 ([facility]ly [facility])
--- OUTSIDE RECORDS SUMMARY | 2021-02-10 11:39 | CCD ---
Author Author [facility] [employer] [facility] Organization [facility] [employer] Address Unknown Phone Unavailable Care Team Providers Care Kiln Stacker Name Role Phone Zakiya Perez Unavailable PROBLEMS ALLERGIES No Known Allergies ENCOUNTERS from 2000 to 2020-11-14 IMMUNIZATIONS SOCIAL HISTORY REASON FOR REFERRAL No Information VITAL SIGNS MEDICATIONS PROCEDURES No Information RESULTS No Results REASON FOR VISIT MEDICAL (GENERAL) HISTORY Goals Section Health Concerns MEDICAL EQUIPMENT No Information MENTAL STATUS FUNCTIONAL STATUS ASSESSMENTS PLAN OF TREATMENT Insurance Providers
--- OUTSIDE RECORDS SUMMARY | 2021-02-10 11:39 | CCD ---
Author Author [employer] [facility] Organization [employer] [facility] Address Unknown Phone Unavailable Care Team Providers Care Tumbling And Rolling Supervisor Name Role Phone Zakiya Perez Unavailable PROBLEMS Type Condition ICD9-CM Code XKZ22-DE Code Onset Dates Condition S tatus W/U Status Risk SNOMED Code Notes Problem Psoriasis L40.9 Active confirmed 7498313 Problem Crohn's disease of colon without complication K50. 10 Active confirmed 5968451 Problem JRA (juvenile rheumatoid arthritis) M08.00 Acti ve confirmed [id number] ALLERGIES No Known Allergies ENCOUNTERS from 2000 to 2020-11-13 Encounter Location Date Provider Diagnosis [facility] Rheumatology [address] [place] [address] [place] [address] October, Zakiya Perez IMMUNIZATIONS Vaccine Route Administration [...] Unknown Language: Question Answer Notes Languages spoken: Amharic Alcohol Screening: Question Answer Notes Did you [...] Information RESULTS No Results REASON FOR VISIT R/S appt MEDICAL (GENERAL) HISTORY Type Description Date [...] Appt Details Provider Name:Zakiya Perez, 09:30:00 AM, [address] [place] [address], , [place], [address], Insurance Providers Payer Name Payer Address Payer Phone Insured Name Patient Relati onship to Insured Coverage Start Date Coverage End Date [phone] [place] [address] RONAL HOLLINS self MEDICAID [facility] [address] [facility] [id number] RONAL HOLLINS self
[2021-02-10] MEDS ORDERED: LIDOCAINE 2% 100MG/5ML SDV (FOR ANES.) As Ordered ONE (13:04)
[2021-02-10] MEDS ORDERED: fentaNYL 100 MCG/2 ML INJECTION (J3010) As Ordered ONE (13:04)
[2021-02-10] MEDS ORDERED: propofoL 200 MG/20 ML VIAL As Ordered ONE ×2 (13:04→13:24)
--- NOTE | 2021-02-10 14:12 | ROOR ---
Patient Name: Koko Callaway Procedure Date: 02/10/2021 1:09 PM Date of : 2000 Age: 20 Room: [facility] Gender: Male Note Status: Finalized Procedure: Upper GI endoscopy Indications: Follow-up of gastric ulcer Providers: Ed Toribio MD Referring MD: WALT HONG NP Requesting Provider: Medicines: Monitored Anesthesia Care Complications: No immediate complications. Procedure: Pre-Anesthesia Assessment: - Prior to the procedure, a History and Physical was performed, and patient medications and allergies were reviewed. The patient is competent. The risks and benefits of the procedure and the sedation options and risks were discussed with the patient. All questions were answered and informed consent was obtained. Patient identification and proposed procedure were verified by the physician, the nurse and the anesthesiologist in the procedure room. Mental Status Examination: alert and oriented. Airway Examination: normal oropharyngeal airway and neck mobility. Respiratory Examination: clear to auscultation. CV Examination: normal. Prophylactic Antibiotics: The patient does not require prophylactic antibiotics. Prior Anticoagulants: The patient has taken no previous anticoagulant or antiplatelet agents. ASA Grade Assessment: II - A patient with mild systemic disease. After reviewing the risks and benefits, the patient was deemed in satisfactory condition to undergo the procedure. The anesthesia plan was to use monitored anesthesia care (MAC). Immediately prior to administration of medications, the patient was re-assessed for adequacy to receive sedatives. The heart rate, respiratory rate, oxygen saturations, blood pressure, adequacy of pulmonary ventilation, and response to care were monitored throughout the procedure. The physical status of the patient was re-assessed after the procedure. The Endoscope was introduced through the mouth, and advanced to the second part of duodenum. The upper GI endoscopy was accomplished without difficulty. The patient tolerated the procedure well. Findings: The examined esophagus was normal. The Z-line was regular and was found at the gastroesophageal junction. Scattered moderate inflammation characterized by friability and granularity was found in the gastric body and in the gastric antrum. Biopsies were taken with a cold forceps for histology. Verification of patient identification for the specimen was done by the physician and nurse using the patient's name, date and medical record number. Estimated blood loss was minimal. The duodenal bulb and second portion of the duodenum were normal. Biopsies for histology were taken with a cold forceps for evaluation of celiac disease. Impression: - Normal esophagus. - Z-line regular, at the gastroesophageal junction. - Gastritis. Biopsied. - Normal duodenal bulb and second portion of the duodenum. Biopsied. Recommendation: - Patient has a contact number available for emergencies. The signs and symptoms of potential delayed complications were discussed with the patient. Return to normal activities tomorrow. Written discharge instructions were provided to the patient. - High fiber diet. - Continue present medications. - Await pathology results. - Follow an antireflux regimen. - Use Protonix (pantoprazole) 40 mg PO daily - to be taken shoe planner 1/2 hour before breakfast for 6 weeks. - Return to GI clinic in 2 months. - Return to primary care physician. Procedure Code(s): --- Professional --- 78462, Esophagogastroduodenoscopy, flexible, transoral; with biopsy, single or multiple Diagnosis Code(s): --- Professional --- K29.70, Gastritis, unspecified, without bleeding K25.9, Gastric ulcer, unspecified as acute or chronic, without hemorrhage or perforation CPT copyright 2019 [employer]. All rights reserved. The codes documented in this report are preliminary and upon mailroom associate review may be revised to meet current compliance requirements. Ed Toribio MD Ed Toribio MD 02/10/2021 2:12:28 PM Electronically signed by Ed Toribio MD Number of Addenda: 0 Note Initiated On: 02/10/2021 1:09 PM Estimated Blood Loss: Estimated blood loss was minimal.
--- NOTE | 2021-02-10 14:24 | ROOR ---
Patient Name: Koko Callaway Procedure Date: 02/10/2021 1:10 PM Date of : 2000 Age: 20 Room: [facility] Gender: Male Note Status: Finalized Procedure: Colonoscopy Indications: Disease activity assessment of Crohn's disease of the colon Providers: Ed Toribio MD Referring MD: WALT HONG NP Requesting Provider: Medicines: Monitored Anesthesia Care Complications: No immediate complications. Procedure: Pre-Anesthesia Assessment: - Prior to the procedure, a History and Physical was performed, and patient medications and allergies were reviewed. The patient is competent. The risks and benefits of the procedure and the sedation options and risks were discussed with the patient. All questions were answered and informed consent was obtained. Patient identification and proposed procedure were verified by the physician, the nurse and the anesthesiologist in the procedure room. Mental Status Examination: alert and oriented. Airway Examination: normal oropharyngeal airway and neck mobility. Respiratory Examination: clear to auscultation. CV Examination: normal. Prophylactic Antibiotics: The patient does not require prophylactic antibiotics. Prior Anticoagulants: The patient has taken no previous anticoagulant or antiplatelet agents. ASA Grade Assessment: II - A patient with mild systemic disease. After reviewing the risks and benefits, the patient was deemed in satisfactory condition to undergo the procedure. The anesthesia plan was to use monitored anesthesia care (MAC). Immediately prior to administration of medications, the patient was re-assessed for adequacy to receive sedatives. The heart rate, respiratory rate, oxygen saturations, blood pressure, adequacy of pulmonary ventilation, and response to care were monitored throughout the procedure. The physical status of the patient was re-assessed after the procedure. The Colonoscope was introduced through the anus and advanced to the terminal ileum, with identification of the appendiceal orifice and IC valve. The colonoscopy was performed without difficulty. The patient tolerated the procedure well. The quality of the bowel preparation was good. The terminal ileum, ileocecal valve, appendiceal orifice, and rectum were photographed. Scope insertion time was 2 minutes. Scope withdrawal time was 9 minutes. The total duration of the procedure was 12 minutes. Findings: The perianal and digital rectal examinations were normal. The terminal ileum contained a single localized non-bleeding erosion. No stigmata of recent bleeding were seen. Biopsies were taken with a cold forceps for histology. Verification of patient identification for the specimen was done by the physician and nurse using the patient's name, date and medical record number. Estimated blood loss was minimal. Normal mucosa was found in the entire colon. Biopsies for histology were taken with a cold forceps from the right colon, left colon and rectosigmoid colon for evaluation of microscopic colitis. Non-bleeding external and internal hemorrhoids were found during retroflexion. The hemorrhoids were small. Impression: - A single erosion in the terminal ileum. Biopsied. - Normal mucosa in the entire examined colon. Biopsied. - Non-bleeding external and internal hemorrhoids. Recommendation: - Patient has a contact number available for emergencies. The signs and symptoms of potential delayed complications were discussed with the patient. Return to normal activities tomorrow. Written discharge instructions were provided to the patient. - High fiber diet. - Continue present medications. - Await pathology results. - Repeat colonoscopy in 5 years to assess disease activity and for surveillance based on pathology results. - Return to GI clinic in 2 months. - Telephone GI clinic if symptomatic. - Return to primary care physician. Procedure Code(s): --- Professional --- 84913, Colonoscopy, flexible; with biopsy, single or multiple Diagnosis Code(s): --- Professional --- K63.3, Ulcer of intestine K64.8, Other hemorrhoids K50.10, Crohn's disease of large intestine without complications CPT copyright 2019 [employer]. All rights reserved. The codes documented in this report are preliminary and upon statuary painter review may be revised to meet current compliance requirements. Ed Toribio MD Ed Toribio MD 02/10/2021 2:23:57 PM Electronically signed by Ed Toribio MD Number of Addenda: 0 Note Initiated On: 02/10/2021 1:10 PM Estimated Blood Loss: Estimated blood loss was minimal.
[2021-02-10 14:25] VITALS: BP 124/66
== END 2021-02-10 14:25 | disposition home or self-care (01) ==
LOC: M OPP 11:33
PROVIDERS: ATTEND Internal Medicine Gastroenterology
DX: K63.3 Ulcer of intestine (principal); K64.8 Other hemorrhoids; K50.10 Crohn's disease of large intestine without complications; K29.70 Gastritis, unspecified, without bleeding; K25.9 Gastric ulcer, unspecified as acute or chronic, without hemorrhage or perforation; Z79.899 Other long term (current) drug therapy
CPT/HCPCS: 43239; 45380; 88305; J3010

== ENCOUNTER 2021-03-03 12:39 | Outpatient (CLI) | payer BC, MEDICAID ==
[~2021-03-03] VITALS: Ht 185.4 cm; Wt 81.2 kg
[~2021-03-03 12:39] MED LIST changes: +ALBUTEROL SULFATE 2.5 MG/0.5 ML INH NEB SOLN INH PRN; -CETI-39 PO; +CETI-43 PO; +EPINEPHrine INJ 1 MG/ML 1ML AMP IM PRN; +INFLIXIMAB BIOSIMILAR 800 MG in NS 170 ML IV ONE; -NS 1,000 ML IV ONE; +diphenhydrAMINE 50MG/ML VIAL (J1200) IV PRN; +methylPREDNISolone 125MG 2ML VIAL IV PRN
[2021-03-03 13:00] VITALS: BP 148/82
[2021-03-03 13:20] VITALS: BP 148/82
[2021-03-03 13:35] VITALS: BP 131/68
[2021-03-03 13:56] VITALS: BP 118/72
[2021-03-03 14:25] VITALS: BP 128/74
== END 2021-03-03 14:35 | disposition home or self-care (01) ==
LOC: M INFU 12:39
PROVIDERS: ATTEND Internal Medicine Rheumatology
DX: M08.00 Unspecified juvenile rheumatoid arthritis of unspecified site (principal); K50.10 Crohn's disease of large intestine without complications
CPT/HCPCS: 96365; Q5103

== ENCOUNTER → 2021-03-27 | Outpatient (REF) | payer BC, MEDICAID ==
[~2021-03-27] MED LIST changes: -ALBUTEROL SULFATE 2.5 MG/0.5 ML INH NEB SOLN INH PRN; -EPINEPHrine INJ 1 MG/ML 1ML AMP IM PRN; -INFLIXIMAB BIOSIMILAR 800 MG in NS 170 ML IV ONE; -diphenhydrAMINE 50MG/ML VIAL (J1200) IV PRN; -methylPREDNISolone 125MG 2ML VIAL IV PRN
[2021-03-27 17:56] LABS: BASO % 0.5 % (0.0-1.0); EOS # 0.2 10^3/uL (0.0-0.5); EOS % 2.1 % (0.0-3.0); HEMATOCRIT 43.6 % (42.0-52.0); HEMOGLOBIN 14.3 g/dl (13.5-17.5); LYMPH # 2.6 10^3/uL (1.5-5.0); LYMPH % 34.8 % (24.0-44.0); MEAN CORPUSCULAR HEMOGLOBIN 29.7 pg (27.0-33.0); MEAN CORPUSCULAR HGB CONC 32.8 g/dl (32.0-36.5); MEAN CORPUSCULAR VOLUME 90.6 fl (80.0-96.0); MONO # 0.6 10^3/uL (0.0-0.8); MONO % 8.5 % (2.0-8.0); NEUTROPHILS % 53.8 % (36.0-66.0); PLATELET COUNT, AUTOMATED 307 10^3/uL (150-450); RED BLOOD COUNT 4.81 10^6/uL (4.30-6.10); WHITE BLOOD COUNT 7.5 10^3/uL (4.0-10.0)
[2021-03-27 18:52] LABS: ALT/SGPT 25 U/L (12-78); BILIRUBIN,TOTAL 0.2 MG/DL (0.2-1.0); BLOOD UREA NITROGEN 14 MG/DL (7-18); CALCIUM LEVEL 8.9 MG/DL (8.5-10.1); CARBON DIOXIDE LEVEL 28 MEQ/L (21-32); CHLORIDE LEVEL 107 MEQ/L (98-107); CREATININE FOR GFR 0.89 MG/DL (0.70-1.30); GLUCOSE, FASTING 103 MG/DL (70-100); SODIUM LEVEL 139 MEQ/L (136-145); TOTAL PROTEIN 7.2 GM/DL (6.4-8.2)
[2021-03-27 20:00] LABS: ERYTHROCYTE SEDIMENTATION RATE 1 mm/hr (0-15)
== END ==
LOC: M SFHCRHEU 14:28
PROVIDERS: ATTEND Internal Medicine Rheumatology
DX: M08.00 Unspecified juvenile rheumatoid arthritis of unspecified site (principal)

== ENCOUNTER → 2021-04-03 | Outpatient (CLI) | payer BC, MEDICAID ==
--- NOTE | 2021-04-03 12:19 | REP ---
INDICATION: PAIN IN RIGHT LOWER LEG COMPARISON: None. TECHNIQUE: AP, lateral, bilateral oblique views. FINDINGS: Lateral swelling consistent with inversion injury. No acute fracture or dislocation. Joint spaces and ankle mortise are intact. IMPRESSION: Lateral ankle swelling. <Electronically signed by Ten Blevins > 04/03/21 [id number]
== END ==
LOC: M RAD 12:04
PROVIDERS: ATTEND Nurse Practitioner Family
DX: M79.661 Pain in right lower leg (principal)

== ENCOUNTER 2021-04-15 12:19 | Outpatient (CLI) | payer BC, MEDICAID ==
[~2021-04-15] VITALS: Ht 185.4 cm; Wt 81.2 kg
[~2021-04-15 12:19] MED LIST changes: +ALBUTEROL SULFATE 2.5 MG/0.5 ML INH NEB SOLN INH PRN; +EPINEPHrine INJ 1 MG/ML 1ML AMP IM PRN; +diphenhydrAMINE 50MG/ML VIAL (J1200) IV PRN; +methylPREDNISolone 125MG 2ML VIAL IV PRN
[2021-04-15 12:22] VITALS: BP 132/80
[2021-04-15] MEDS ORDERED: NS 1,000 ML IV SCH (12:30)
[2021-04-15] MEDS ORDERED: INFLIXIMAB BIOSIMILAR 800 MG in NS 170 ML IV ONE (12:30)
[2021-04-15 12:40] VITALS: BP 132/80
[2021-04-15 14:37] VITALS: BP 139/86
== END 2021-04-15 14:35 | disposition home or self-care (01) ==
LOC: M INFU 12:19
PROVIDERS: ATTEND Internal Medicine Rheumatology
DX: M08.00 Unspecified juvenile rheumatoid arthritis of unspecified site (principal)
CPT/HCPCS: 96365; Q5103

== ENCOUNTER → 2021-05-21 | Outpatient (CLI) | payer BC, MEDICAID ==
[~2021-05-21] MED LIST changes: -ALBUTEROL SULFATE 2.5 MG/0.5 ML INH NEB SOLN INH PRN; -EPINEPHrine INJ 1 MG/ML 1ML AMP IM PRN; -diphenhydrAMINE 50MG/ML VIAL (J1200) IV PRN; -methylPREDNISolone 125MG 2ML VIAL IV PRN
--- NOTE | 2021-05-21 08:46 | REP ---
INDICATION: PAIN IN LEFT ANKLE AND JOINTS OF LEFT FOOT. COMPARISON: None. TECHNIQUE: AP, lateral, bilateral oblique views of the left foot FINDINGS: Osseous structures, joint spaces, and surrounding soft tissues are age-appropriate and within normal limits. No acute fracture or dislocation. No congenital or arthritic degenerative changes noted. IMPRESSION: Normal age-appropriate left foot radiographs. <Electronically signed by Ten Blevins > 05/21/21 08
== END ==
LOC: M SOG 08:15
PROVIDERS: ATTEND Orthopaedic Surgery Sports Medicine
DX: M25.572 Pain in left ankle and joints of left foot (principal)

== ENCOUNTER 2021-06-03 13:26 | Outpatient (CLI) | payer BC, MEDICAID ==
[~2021-06-03] VITALS: Ht 182.9 cm; Wt 79.5 kg
[~2021-06-03 13:26] MED LIST changes: +ALBUTEROL SULFATE 2.5 MG/0.5 ML INH NEB SOLN INH PRN; +EPINEPHrine INJ 1 MG/ML 1ML AMP IM PRN; +diphenhydrAMINE 50MG/ML VIAL (J1200) IV PRN; +methylPREDNISolone 125MG 2ML VIAL IV PRN
[2021-06-03] MEDS ORDERED: INFLIXIMAB BIOSIMILAR 800 MG in NS 170 ML IV ONE (13:30)
[2021-06-03 13:35] VITALS: BP 132/76
[2021-06-03 15:05] VITALS: BP 137/85
== END 2021-06-03 15:05 | disposition home or self-care (01) ==
LOC: M INFU 13:26
PROVIDERS: ATTEND Internal Medicine Rheumatology
DX: M08.00 Unspecified juvenile rheumatoid arthritis of unspecified site (principal)
CPT/HCPCS: 96365; Q5103

== ENCOUNTER 2021-07-15 13:22 | Outpatient (CLI) | payer BC, MEDICAID ==
[~2021-07-15] VITALS: Ht 185.4 cm; Wt 81.2 kg
[~2021-07-15 13:22] MED LIST changes: -CETI-43 PO; +GNPTAB36 PO
[2021-07-15] MEDS ORDERED: ACETAMINOPHEN 650MG PO PRIOR TO INFUSION PO ONE (13:30)
[2021-07-15] MEDS ORDERED: INFLIXIMAB BIOSIMILAR 800 MG in NS 170 ML IV ONE (13:30)
[2021-07-15 14:25] VITALS: BP 142/83
[2021-07-15 15:08] VITALS: BP 153/83
== END 2021-07-15 15:15 | disposition home or self-care (01) ==
LOC: M INFU 13:22
PROVIDERS: ATTEND Internal Medicine Rheumatology
DX: M08.00 Unspecified juvenile rheumatoid arthritis of unspecified site (principal)
CPT/HCPCS: 96413; Q5103

== ENCOUNTER → 2021-07-23 | Outpatient (CLI) | payer BC, MEDICAID ==
[~2021-07-23] MED LIST changes: -ALBUTEROL SULFATE 2.5 MG/0.5 ML INH NEB SOLN INH PRN; -EPINEPHrine INJ 1 MG/ML 1ML AMP IM PRN; -diphenhydrAMINE 50MG/ML VIAL (J1200) IV PRN; -methylPREDNISolone 125MG 2ML VIAL IV PRN
[2021-07-23 17:30] LABS: BASO # 0.1 10^3/uL (0.0-0.2); BASO % 0.5 % (0.0-1.0); EOS # 0.1 10^3/uL (0.0-0.5); EOS % 1.5 % (0.0-3.0); HEMATOCRIT 46.4 % (42.0-52.0); HEMOGLOBIN 15.9 g/dl (13.5-17.5); LYMPH # 3.6 10^3/uL (1.5-5.0); LYMPH % 37.9 % (24.0-44.0); MEAN CORPUSCULAR HEMOGLOBIN 30.8 pg (27.0-33.0); MEAN CORPUSCULAR HGB CONC 34.3 g/dl (32.0-36.5); MEAN CORPUSCULAR VOLUME 89.7 fl (80.0-96.0); MONO # 0.6 10^3/uL (0.0-0.8); MONO % 6.2 % (2.0-8.0); NEUTROPHILS # 5.1 10^3/uL (1.5-8.5); NEUTROPHILS % 53.8 % (36.0-66.0); PLATELET COUNT, AUTOMATED 343 10^3/uL (150-450); RED BLOOD COUNT 5.17 10^6/uL (4.30-6.10); WHITE BLOOD COUNT 9.5 10^3/uL (4.0-10.0)
[2021-07-23 18:04] LABS: ALBUMIN 4.3 GM/DL (3.2-5.2); ALT/SGPT 27 U/L (12-78); BILIRUBIN,TOTAL 0.2 MG/DL (0.2-1.0); BLOOD UREA NITROGEN 12 MG/DL (7-18); CALCIUM LEVEL 8.9 MG/DL (8.5-10.1); CARBON DIOXIDE LEVEL 27 MEQ/L (21-32); CHLORIDE LEVEL 107 MEQ/L (98-107); CREATININE FOR GFR 0.94 MG/DL (0.70-1.30); GLOMERULAR FILTRATION RATE > 60.0 (>60); GLUCOSE, FASTING 113 MG/DL (70-100); POTASSIUM SERUM 3.9 MEQ/L (3.5-5.1); SODIUM LEVEL 139 MEQ/L (136-145); TOTAL PROTEIN 7.3 GM/DL (6.4-8.2)
[2021-07-23 18:05] LABS: ERYTHROCYTE SEDIMENTATION RATE 1 mm/hr (0-15)
== END ==
LOC: M LAB 16:58
PROVIDERS: ATTEND Internal Medicine Rheumatology
DX: M08.00 Unspecified juvenile rheumatoid arthritis of unspecified site (principal)

== ENCOUNTER 2021-08-27 08:18 | Outpatient (CLI) | payer BC, MEDICAID ==
[~2021-08-27] VITALS: Ht 185.4 cm; Wt 82.0 kg
[2021-08-27] MEDS ORDERED: diphenhydrAMINE 50MG/ML VIAL (J1200) IV PRN (08:30)
[2021-08-27] MEDS ORDERED: EPINEPHrine INJ 1 MG/ML 1ML AMP IM PRN (08:30)
[2021-08-27] MEDS ORDERED: INFLIXIMAB BIOSIMILAR 800 MG in NS 170 ML IV ONE (08:30)
[2021-08-27] MEDS ORDERED: methylPREDNISolone 125MG 2ML VIAL IV PRN (08:30)
[2021-08-27] MEDS ORDERED: ALBUTEROL SULFATE 2.5 MG/0.5 ML INH NEB SOLN INH PRN (08:30)
[2021-08-27] MEDS ORDERED: ACETAMINOPHEN 650MG PO PRIOR TO INFUSION PO ONE (08:30)
[2021-08-27 08:49] VITALS: BP 136/79
[2021-08-27 09:45] VITALS: BP 149/74
[2021-08-27 10:42] VITALS: BP 135/69
== END 2021-08-27 10:40 | disposition home or self-care (01) ==
LOC: M LAB 08:18 → M INFU 08:18
PROVIDERS: ATTEND Internal Medicine Rheumatology
DX: M08.00 Unspecified juvenile rheumatoid arthritis of unspecified site (principal)
CPT/HCPCS: 96413; Q5103

== ENCOUNTER → 2021-08-27 | Outpatient (CLI) | payer BC, MEDICAID ==
[2021-08-27 11:42] LABS: HEPATITIS B SURFACE ANTIGEN NEGATIVE (NEGATIVE); HIV 1&2 SCREEN CENTAUR NEGATIVE (NEGATIVE)
== END ==
LOC: M LAB 08:37
PROVIDERS: ATTEND Nurse Practitioner Family
DX: Z11.3 Encounter for screening for infections with a predominantly sexual mode of transmission (principal)

== ENCOUNTER → 2021-09-18 | Outpatient (CLI) | payer BC, MEDICAID | LOC: M RAD 15:02 | PROVIDERS: ATTEND Physician Assistant | DX: J15.8 Pneumonia due to other specified bacteria (principal) ==

== ENCOUNTER 2021-10-08 14:02 | Outpatient (CLI) | payer BC, MEDICAID ==
[~2021-10-08] VITALS: Ht 188 cm; Wt 81.0 kg
[~2021-10-08 14:02] MED LIST changes: +ACETAMINOPHEN 650MG PO PRIOR TO INFUSION PO ONE; +ALBUTEROL SULFATE 2.5 MG/0.5 ML INH NEB SOLN INH PRN; +EPINEPHrine INJ 1 MG/ML 1ML AMP IM PRN; +INFLIXIMAB BIOSIMILAR 800 MG in NS 170 ML IV ONE; +diphenhydrAMINE 50MG/ML VIAL (J1200) IV PRN; +methylPREDNISolone 125MG 2ML VIAL IV PRN
[2021-10-08 14:07] VITALS: BP 162/92
[2021-10-08 15:00] VITALS: BP 137/79
== END 2021-10-08 16:00 | disposition home or self-care (01) ==
LOC: M INFU 14:02
PROVIDERS: ATTEND Internal Medicine Rheumatology
DX: M08.00 Unspecified juvenile rheumatoid arthritis of unspecified site (principal)
CPT/HCPCS: 96413; Q5103

== ENCOUNTER → 2021-10-20 | Outpatient (REF) | payer BC, MEDICAID ==
[~2021-10-20] MED LIST changes: -ACETAMINOPHEN 650MG PO PRIOR TO INFUSION PO ONE; -ALBUTEROL SULFATE 2.5 MG/0.5 ML INH NEB SOLN INH PRN; -EPINEPHrine INJ 1 MG/ML 1ML AMP IM PRN; -INFLIXIMAB BIOSIMILAR 800 MG in NS 170 ML IV ONE; -diphenhydrAMINE 50MG/ML VIAL (J1200) IV PRN; -methylPREDNISolone 125MG 2ML VIAL IV PRN
[2021-10-20 17:08] LABS: BASO # 0.1 10^3/uL (0.0-0.2); BASO % 0.6 % (0.0-1.0); EOS # 0.1 10^3/uL (0.0-0.5); EOS % 1.8 % (0.0-3.0); HEMATOCRIT 45.4 % (42.0-52.0); LYMPH % 51.7 % (24.0-44.0); MEAN CORPUSCULAR VOLUME 90.8 fl (80.0-96.0); MONO # 0.4 10^3/uL (0.0-0.8); MONO % 5.6 % (2.0-8.0); NEUTROPHILS # 3.1 10^3/uL (1.5-8.5); PLATELET COUNT, AUTOMATED 328 10^3/uL (150-450); WHITE BLOOD COUNT 7.8 10^3/uL (4.0-10.0)
[2021-10-20 17:31] LABS: ALBUMIN 4.2 GM/DL (3.2-5.2); ALT/SGPT 31 U/L (12-78); BILIRUBIN,TOTAL 0.4 MG/DL (0.2-1.0); BLOOD UREA NITROGEN 11 MG/DL (7-18); CALCIUM LEVEL 8.7 MG/DL (8.5-10.1); CARBON DIOXIDE LEVEL 29 MEQ/L (21-32); CHLORIDE LEVEL 105 MEQ/L (98-107); GLOMERULAR FILTRATION RATE > 60.0 (>60); GLUCOSE, FASTING 83 MG/DL (70-100); POTASSIUM SERUM 3.8 MEQ/L (3.5-5.1); SODIUM LEVEL 138 MEQ/L (136-145); TOTAL PROTEIN 7.6 GM/DL (6.4-8.2)
[2021-10-20 18:20] LABS: ERYTHROCYTE SEDIMENTATION RATE 2 mm/hr (0-15)
== END ==
LOC: M SFHCRHEU 14:44
PROVIDERS: ATTEND Internal Medicine Rheumatology
DX: M08.00 Unspecified juvenile rheumatoid arthritis of unspecified site (principal); K50.10 Crohn's disease of large intestine without complications; M79.604 Pain in right leg; Z79.899 Other long term (current) drug therapy

== ENCOUNTER 2021-11-18 15:01 | Outpatient (CLI) | payer OTHER, MEDICAID ==
[~2021-11-18] VITALS: Ht 185.4 cm; Wt 81.2 kg
[~2021-11-18 15:01] MED LIST changes: +ACETAMINOPHEN 650MG PO PRIOR TO INFUSION PO ONE; +ALBUTEROL SULFATE 2.5 MG/0.5 ML INH NEB SOLN INH PRN; +EPINEPHrine INJ 1 MG/ML 1ML AMP IM PRN; +INFLIXIMAB BIOSIMILAR 800 MG in NS 170 ML IV ONE; +NS 1,000 ML IV SCH; +diphenhydrAMINE 50MG/ML VIAL (J1200) IV PRN; +methylPREDNISolone 125MG 2ML VIAL IV PRN
[2021-11-18 15:16] VITALS: BP 157/82
[2021-11-18 16:00] VITALS: BP 139/78
[2021-11-18 16:50] VITALS: BP 141/82
== END 2021-11-18 16:50 | disposition home or self-care (01) ==
LOC: M INFU 15:01
PROVIDERS: ATTEND Internal Medicine Rheumatology
DX: M08.00 Unspecified juvenile rheumatoid arthritis of unspecified site (principal)
CPT/HCPCS: 96413; Q5103

== ENCOUNTER → 2021-11-25 | Outpatient (REF) | payer BC ==
[~2021-11-25] MED LIST changes: -ACETAMINOPHEN 650MG PO PRIOR TO INFUSION PO ONE; -ALBUTEROL SULFATE 2.5 MG/0.5 ML INH NEB SOLN INH PRN; -EPINEPHrine INJ 1 MG/ML 1ML AMP IM PRN; -INFLIXIMAB BIOSIMILAR 800 MG in NS 170 ML IV ONE; -NS 1,000 ML IV SCH; -diphenhydrAMINE 50MG/ML VIAL (J1200) IV PRN; -methylPREDNISolone 125MG 2ML VIAL IV PRN
[2021-11-26 12:37] LABS: GC DNA AMPLIFICATION NEGATIVE (NEGATIVE)
[2021-11-26 16:22] LABS: GC DNA AMPLIFICATION NEGATIVE (NEGATIVE)
== END ==
LOC: M WUC 19:59
PROVIDERS: ATTEND Physician Assistant
DX: J02.9 Acute pharyngitis, unspecified (principal); Z11.3 Encounter for screening for infections with a predominantly sexual mode of transmission; R30.0 Dysuria

== ENCOUNTER 2021-12-30 15:30 | Outpatient (CLI) | payer BC, MEDICAID ==
[~2021-12-30] VITALS: Ht 185.4 cm; Wt 81.1 kg
[2021-12-30 15:30] VITALS: BP 141/78
[~2021-12-30 15:30] MED LIST changes: +ACETAMINOPHEN TAB 650MG DOSE (2X325MG) PO ONE; +ALBUTEROL SULFATE 2.5 MG/0.5 ML INH NEB SOLN INH PRN; +EPINEPHrine INJ 1 MG/ML 1ML AMP IM PRN; +INFLIXIMAB BIOSIMILAR 800 MG in NS 170 ML IV ONE; +diphenhydrAMINE 50MG/ML VIAL (J1200) IV PRN; +methylPREDNISolone 125MG 2ML VIAL IV PRN
[2021-12-30 16:05] VITALS: BP 130/71
[2021-12-30 17:00] VITALS: BP 136/77
== END 2021-12-30 17:00 | disposition home or self-care (01) ==
LOC: M INFU 15:30
PROVIDERS: ATTEND Internal Medicine Rheumatology
DX: M08.00 Unspecified juvenile rheumatoid arthritis of unspecified site (principal)
CPT/HCPCS: 96365; Q5103

== ENCOUNTER → 2022-01-15 | Outpatient (REF) | payer BC, MEDICAID ==
[~2022-01-15] MED LIST changes: -ACETAMINOPHEN TAB 650MG DOSE (2X325MG) PO ONE; -ALBUTEROL SULFATE 2.5 MG/0.5 ML INH NEB SOLN INH PRN; -EPINEPHrine INJ 1 MG/ML 1ML AMP IM PRN; -INFLIXIMAB BIOSIMILAR 800 MG in NS 170 ML IV ONE; -diphenhydrAMINE 50MG/ML VIAL (J1200) IV PRN; -methylPREDNISolone 125MG 2ML VIAL IV PRN
[2022-01-15 17:06] LABS: BASO # 0.1 10^3/uL (0.0-0.2); BASO % 0.7 % (0.0-1.0); EOS # 0.2 10^3/uL (0.0-0.5); EOS % 2.2 % (0.0-3.0); HEMATOCRIT 44.6 % (42.0-52.0); HEMOGLOBIN 14.5 g/dl (13.5-17.5); LYMPH # 4.4 10^3/uL (1.5-5.0); MEAN CORPUSCULAR HEMOGLOBIN 29.7 pg (27.0-33.0); MEAN CORPUSCULAR HGB CONC 32.5 g/dl (32.0-36.5); MEAN CORPUSCULAR VOLUME 91.4 fl (80.0-96.0); MONO # 0.6 10^3/uL (0.0-0.8); MONO % 7.5 % (2.0-8.0); NEUTROPHILS # 3.2 10^3/uL (1.5-8.5); NEUTROPHILS % 37.4 % (36.0-66.0); PLATELET COUNT, AUTOMATED 357 10^3/uL (150-450); RED BLOOD COUNT 4.88 10^6/uL (4.30-6.10); WHITE BLOOD COUNT 8.5 10^3/uL (4.0-10.0)
[2022-01-15 17:36] LABS: ALBUMIN 4.3 GM/DL (3.2-5.2); ALT/SGPT 22 U/L (12-78); BILIRUBIN,TOTAL 0.3 MG/DL (0.2-1.0); BLOOD UREA NITROGEN 11 MG/DL (7-18); CALCIUM LEVEL 9.1 MG/DL (8.5-10.1); CARBON DIOXIDE LEVEL 28 MEQ/L (21-32); CHLORIDE LEVEL 105 MEQ/L (98-107); GLOMERULAR FILTRATION RATE > 60.0 (>60); GLUCOSE, FASTING 88 MG/DL (70-100); SODIUM LEVEL 139 MEQ/L (136-145); TOTAL PROTEIN 7.6 GM/DL (6.4-8.2)
[2022-01-15 19:01] LABS: ERYTHROCYTE SEDIMENTATION RATE 1 mm/hr (0-15)
== END ==
LOC: M SFHCRHEU 12:52
PROVIDERS: ATTEND Internal Medicine Rheumatology
DX: M08.00 Unspecified juvenile rheumatoid arthritis of unspecified site (principal); K50.10 Crohn's disease of large intestine without complications; M79.604 Pain in right leg; Z79.899 Other long term (current) drug therapy

== ENCOUNTER → 2022-01-20 | Outpatient (REF) | payer BC, MEDICAID | LOC: M LAB REF 12:01 | PROVIDERS: ATTEND Physician Assistant | DX: J02.9 Acute pharyngitis, unspecified (principal) ==

== ENCOUNTER 2022-02-11 15:30 | Outpatient (CLI) | payer BC, MEDICAID ==
[~2022-02-11] VITALS: Ht 185.4 cm; Wt 84.0 kg
[~2022-02-11 15:30] MED LIST changes: +ACETAMINOPHEN 650MG PO PRIOR TO INFUSION PO ONE; +ALBUTEROL SULFATE 2.5 MG/0.5 ML INH NEB SOLN INH PRN; +EPINEPHrine INJ 1 MG/ML 1ML AMP IM PRN; +INFLIXIMAB BIOSIMILAR 800 MG in NS 170 ML IV ONE; +NS 1,000 ML IV SCH; +diphenhydrAMINE 50MG/ML VIAL (J1200) IV PRN; +methylPREDNISolone 125MG 2ML VIAL IV PRN
[2022-02-11 15:33] VITALS: BP 158/84
[2022-02-11 16:53] VITALS: BP 137/75
== END 2022-02-11 17:00 | disposition home or self-care (01) ==
LOC: M INFU 15:30
PROVIDERS: ATTEND Internal Medicine Rheumatology
DX: M08.00 Unspecified juvenile rheumatoid arthritis of unspecified site (principal)
CPT/HCPCS: 96413; Q5103

== ENCOUNTER → 2022-02-23 | Outpatient (CLI) | payer BC, MEDICAID ==
[~2022-02-23] MED LIST changes: -ACETAMINOPHEN 650MG PO PRIOR TO INFUSION PO ONE; -ALBUTEROL SULFATE 2.5 MG/0.5 ML INH NEB SOLN INH PRN; -EPINEPHrine INJ 1 MG/ML 1ML AMP IM PRN; -INFLIXIMAB BIOSIMILAR 800 MG in NS 170 ML IV ONE; -NS 1,000 ML IV SCH; -diphenhydrAMINE 50MG/ML VIAL (J1200) IV PRN; -methylPREDNISolone 125MG 2ML VIAL IV PRN
== END ==
LOC: M RAD 16:07
PROVIDERS: ATTEND Physician Assistant
DX: R06.02 Shortness of breath (principal)

== ENCOUNTER 2022-04-01 15:15 | Outpatient (CLI) | payer BC, MEDICAID ==
[~2022-04-01 15:15] MED LIST changes: +ACETAMINOPHEN TAB 650MG DOSE (2X325MG) PO ONE; +ALBUTEROL SULFATE 2.5 MG/0.5 ML INH NEB SOLN INH PRN; +EPINEPHrine INJ 1 MG/ML 1ML AMP IM PRN; +INFLIXIMAB BIOSIMILAR 800 MG in NS 170 ML IV ONE; +diphenhydrAMINE 50MG/ML VIAL (J1200) IV PRN; +methylPREDNISolone 125MG 2ML VIAL IV PRN
[2022-04-01 15:20] VITALS: BP 137/81
[2022-04-01 16:42] VITALS: BP 118/78
== END 2022-04-01 17:45 | disposition home or self-care (01) ==
LOC: M INFU 15:15
PROVIDERS: ATTEND Internal Medicine Rheumatology
DX: M08.00 Unspecified juvenile rheumatoid arthritis of unspecified site (principal)
CPT/HCPCS: 96413; Q5103

== ENCOUNTER → 2022-04-22 | Outpatient (CLI) | payer BC, MEDICAID ==
[~2022-04-22] MED LIST changes: -ACETAMINOPHEN TAB 650MG DOSE (2X325MG) PO ONE; -ALBUTEROL SULFATE 2.5 MG/0.5 ML INH NEB SOLN INH PRN; -EPINEPHrine INJ 1 MG/ML 1ML AMP IM PRN; -INFLIXIMAB BIOSIMILAR 800 MG in NS 170 ML IV ONE; -diphenhydrAMINE 50MG/ML VIAL (J1200) IV PRN; -methylPREDNISolone 125MG 2ML VIAL IV PRN
[2022-04-22 17:05] LABS: HEMATOCRIT 49.9 % (42.0-52.0); HEMOGLOBIN 16.3 g/dl (13.5-17.5); MEAN CORPUSCULAR HEMOGLOBIN 29.1 pg (27.0-33.0); MEAN CORPUSCULAR HGB CONC 32.7 g/dl (32.0-36.5); MEAN CORPUSCULAR VOLUME 88.9 fl (80.0-96.0); PLATELET COUNT, AUTOMATED 401 10^3/uL (150-450); RED BLOOD COUNT 5.61 10^6/uL (4.30-6.10); WHITE BLOOD COUNT 11.8 10^3/uL (4.0-10.0)
[2022-04-22 17:49] LABS: ALBUMIN 3.9 GM/DL (3.2-5.2); ALT/SGPT 28 U/L (12-78); BILIRUBIN,TOTAL 0.3 MG/DL (0.2-1.0); BLOOD UREA NITROGEN 20 MG/DL (7-18); CALCIUM LEVEL 9.1 MG/DL (8.5-10.1); CARBON DIOXIDE LEVEL 29 MEQ/L (21-32); CHLORIDE LEVEL 102 MEQ/L (98-107); CREATININE FOR GFR 0.93 MG/DL (0.70-1.30); GLOMERULAR FILTRATION RATE > 60.0 (>60); GLUCOSE, FASTING 93 MG/DL (70-100); POTASSIUM SERUM 4.4 MEQ/L (3.5-5.1); SODIUM LEVEL 135 MEQ/L (136-145); TOTAL PROTEIN 7.8 GM/DL (6.4-8.2)
[2022-04-22 18:15] LABS: ERYTHROCYTE SEDIMENTATION RATE 2 mm/hr (0-15)
[2022-04-22 19:58] LABS: ATYPICAL LYMPH 1 % (0-5); EOSINOPHILS 5 % (0-3); LYMPHOCYTES 50 % (16-44); MONOCYTES 3 % (0-5); NEUTROPHILS 41 % (28-66)
[2022-04-22 19:59] LABS: PLATELET ESTIMATE NORMAL (NORMAL)
== END ==
LOC: M LAB 16:23
PROVIDERS: ATTEND Internal Medicine Rheumatology
DX: M08.00 Unspecified juvenile rheumatoid arthritis of unspecified site (principal); K50.10 Crohn's disease of large intestine without complications; M79.604 Pain in right leg; Z79.899 Other long term (current) drug therapy

== ENCOUNTER 2022-05-19 15:00 | Outpatient (CLI) | payer BC, MEDICAID ==
[~2022-05-19] VITALS: Ht 185.4 cm; Wt 84.4 kg
[~2022-05-19 15:00] MED LIST changes: +ACETAMINOPHEN 650MG PO PRIOR TO INFUSION PO ONE; +ALBUTEROL SULFATE 2.5 MG/0.5 ML INH NEB SOLN INH PRN; +EPINEPHrine INJ 1 MG/ML 1ML AMP IM PRN; +INFLIXIMAB BIOSIMILAR 800 MG in NS 170 ML IV ONE; +diphenhydrAMINE 50MG/ML VIAL IV PRN; +methylPREDNISolone 125MG 2ML VIAL IV PRN
[2022-05-19 15:28] VITALS: BP 161/89
[2022-05-19 16:00] VITALS: BP 144/83
[2022-05-19 16:49] VITALS: BP 139/83
== END 2022-05-19 16:50 | disposition home or self-care (01) ==
LOC: M INFU 15:00
PROVIDERS: ATTEND Internal Medicine Rheumatology
DX: M08.00 Unspecified juvenile rheumatoid arthritis of unspecified site (principal)
CPT/HCPCS: 96413; Q5103

== ENCOUNTER → 2022-07-19 | Outpatient (CLI) | payer BC, MEDICAID ==
[~2022-07-19] MED LIST changes: -ACETAMINOPHEN 650MG PO PRIOR TO INFUSION PO ONE; -ALBUTEROL SULFATE 2.5 MG/0.5 ML INH NEB SOLN INH PRN; -EPINEPHrine INJ 1 MG/ML 1ML AMP IM PRN; -INFLIXIMAB BIOSIMILAR 800 MG in NS 170 ML IV ONE; -diphenhydrAMINE 50MG/ML VIAL IV PRN; -methylPREDNISolone 125MG 2ML VIAL IV PRN
[2022-07-19 13:56] LABS: BASO % 0.3 % (0.0-1.0); EOS # 0.3 10^3/uL (0.0-0.5); EOS % 4.4 % (0.0-3.0); HEMATOCRIT 48.8 % (42.0-52.0); HEMOGLOBIN 16.2 g/dl (13.5-17.5); LYMPH # 3.9 10^3/uL (1.5-5.0); LYMPH % 63.8 % (24.0-44.0); MEAN CORPUSCULAR HEMOGLOBIN 29.8 pg (27.0-33.0); MEAN CORPUSCULAR HGB CONC 33.2 g/dl (32.0-36.5); MEAN CORPUSCULAR VOLUME 89.9 fl (80.0-96.0); MONO # 0.5 10^3/uL (0.0-0.8); MONO % 7.6 % (2.0-8.0); NEUTROPHILS # 1.5 10^3/uL (1.5-8.5); NEUTROPHILS % 23.9 % (36.0-66.0); PLATELET COUNT, AUTOMATED 266 10^3/uL (150-450); RED BLOOD COUNT 5.43 10^6/uL (4.30-6.10); WHITE BLOOD COUNT 6.2 10^3/uL (4.0-10.0)
[2022-07-19 14:12] LABS: HEMOGLOBIN A1c 5.1 % (4.0-6.0)
[2022-07-19 14:32] LABS: ALBUMIN 4.1 G/DL (3.2-5.2); ALKALINE PHOSPHATASE 74 U/L (46-116); ALT/SGPT 36 U/L (7.0-40); AST/SGOT 33 U/L (<34); BILIRUBIN,TOTAL 0.3 MG/DL (0.3-1.2); BLOOD UREA NITROGEN 13 MG/DL (9-23); CALCIUM LEVEL 8.8 MG/DL (8.5-10.1); CARBON DIOXIDE LEVEL 31 MMOL/L (20-31); CHLORIDE LEVEL 106 MMOL/L (98-107); CHOLESTEROL LEVEL 126 MG/DL (<200); CHOLESTEROL RISK RATIO 3.36 (<5); CREATININE FOR GFR 0.87 MG/DL (0.70-1.30); GLOMERULAR FILTRATION RATE > 60.0 (>60); GLUCOSE, FASTING 81 MG/DL (60-100); HDL CHOLESTEROL 37.4 MG/DL (>40); LDL CHOLESTEROL 58.8 MG/DL (<100); NON-HDL-C 89 MG/DL; POTASSIUM SERUM 4.7 MMOL/L (3.5-5.1); SODIUM LEVEL 142 MMOL/L (136-145); TOTAL 25(OH) VITAMIN D 27.6 NG/ML (20.0-100.0); TOTAL PROTEIN 7.2 G/DL (5.7-8.2); TRIGLYCERIDES LEVEL 149 MG/DL (<150)
== END ==
LOC: M LAB 12:37
PROVIDERS: ATTEND Nurse Practitioner Family
DX: Z00.01 Encounter for general adult medical examination with abnormal findings (principal)

== ENCOUNTER → 2022-08-04 | Outpatient (CLI) | payer BC, MEDICAID ==
[~2022-08-04] VITALS: Ht 185.4 cm; Wt 84.0 kg
[~2022-08-04] MED LIST changes: +ACETAMINOPHEN 650MG PO PRIOR TO INFUSION PO ONE; +ALBUTEROL SULFATE 2.5MG/0.5ML INH NEB SOLN INH PRN; +EPINEPHrine INJ 1 MG/ML 1ML AMP IM PRN; +INFLIXIMAB BIOSIMILAR 800 MG in NS 170 ML IV ONE; +diphenhydrAMINE 50MG/ML VIAL IV PRN; +methylPREDNISolone 125MG 2ML VIAL IV PRN
[2022-08-04 15:32] VITALS: BP 121/79
[2022-08-04 16:52] VITALS: BP 137/76
== END ==
LOC: M INFU 17:02
PROVIDERS: ATTEND Internal Medicine Rheumatology
DX: M08.00 Unspecified juvenile rheumatoid arthritis of unspecified site (principal)
CPT/HCPCS: 96413; Q5103

== ENCOUNTER → 2022-08-19 | Outpatient (CLI) | payer BC, MEDICAID ==
[~2022-08-19] MED LIST changes: -ACETAMINOPHEN 650MG PO PRIOR TO INFUSION PO ONE; -ALBUTEROL SULFATE 2.5MG/0.5ML INH NEB SOLN INH PRN; -EPINEPHrine INJ 1 MG/ML 1ML AMP IM PRN; -INFLIXIMAB BIOSIMILAR 800 MG in NS 170 ML IV ONE; +METHACHOLINE KIT INH ONE; -diphenhydrAMINE 50MG/ML VIAL IV PRN; -methylPREDNISolone 125MG 2ML VIAL IV PRN
== END ==
LOC: M CARPUL 07:56
PROVIDERS: ATTEND Physician Assistant
DX: R06.00 Dyspnea, unspecified (principal); R94.2 Abnormal results of pulmonary function studies
CPT/HCPCS: 94070; J7674

== ENCOUNTER → 2022-09-05 | Outpatient (REF) | payer BC, MEDICAID ==
[~2022-09-05] MED LIST changes: -METHACHOLINE KIT INH ONE
[2022-09-05 17:00] LABS: CLOSTRIDIUM DIFFICILE PCR NEGATIVE (NEGATIVE)
== END ==
LOC: M LAB REF 15:54
PROVIDERS: ATTEND Internal Medicine Gastroenterology
DX: K50.90 Crohn's disease, unspecified, without complications (principal)

== ENCOUNTER → 2022-09-12 | Outpatient (CLI) | payer BC, MEDICAID ==
[2022-09-12 13:10] LABS: BASO # 0.1 10^3/uL (0.0-0.2); BASO % 0.6 % (0.0-1.0); EOS # 0.4 10^3/uL (0.0-0.5); EOS % 4.6 % (0.0-3.0); HEMATOCRIT 49.7 % (42.0-52.0); HEMOGLOBIN 16.5 g/dl (13.5-17.5); LYMPH # 4.8 10^3/uL (1.5-5.0); LYMPH % 52.9 % (24.0-44.0); MEAN CORPUSCULAR HEMOGLOBIN 29.5 pg (27.0-33.0); MEAN CORPUSCULAR HGB CONC 33.2 g/dl (32.0-36.5); MEAN CORPUSCULAR VOLUME 88.8 fl (80.0-96.0); MONO # 0.5 10^3/uL (0.0-0.8); MONO % 5.4 % (2.0-8.0); NEUTROPHILS # 3.3 10^3/uL (1.5-8.5); NEUTROPHILS % 36.4 % (36.0-66.0); PLATELET COUNT, AUTOMATED 354 10^3/uL (150-450); WHITE BLOOD COUNT 9.1 10^3/uL (4.0-10.0)
[2022-09-12 13:41] LABS: C REACTIVE PROTEIN QUANTITATIV < 0.40 MG/DL (<1.0)
[2022-09-12 13:42] LABS: IRON (FE) 176 UG/DL (65-175); PERCENT SATURATION 51.9 % (19.7-50.0); TOTAL IRON BINDING CAPACITY 339 UG/DL (250-425)
[2022-09-12 13:46] LABS: ALBUMIN 4.3 G/DL (3.2-5.2); ALKALINE PHOSPHATASE 94 U/L (46-116); ALT/SGPT 23 U/L (7.0-40); AST/SGOT 21 U/L (<34); BILIRUBIN,DIRECT 0.1 MG/DL (<0.4); BILIRUBIN,TOTAL 0.5 MG/DL (0.3-1.2); BLOOD UREA NITROGEN 13 MG/DL (9-23); CREATININE FOR GFR 0.83 MG/DL (0.70-1.30); GLOMERULAR FILTRATION RATE > 60.0 (>60); TOTAL PROTEIN 7.3 G/DL (5.7-8.2)
[2022-09-12 14:04] LABS: ERYTHROCYTE SEDIMENTATION RATE 10 mm/hr (0-15)
== END ==
LOC: M LAB 12:34
PROVIDERS: ATTEND Internal Medicine Gastroenterology
DX: K50.90 Crohn's disease, unspecified, without complications (principal)

== ENCOUNTER 2022-09-15 15:35 | Outpatient (CLI) | payer BC, MEDICAID ==
[~2022-09-15] VITALS: Ht 185.4 cm; Wt 84.4 kg
[~2022-09-15 15:35] MED LIST changes: +ACETAMINOPHEN 650MG PO PRIOR TO INFUSION PO ONE; +ALBUTEROL SULFATE 2.5MG/0.5ML INH NEB SOLN INH PRN; +EPINEPHrine INJ 1 MG/ML 1ML AMP IM PRN; +INFLIXIMAB BIOSIMILAR 800 MG in NS 170 ML IV ONE; +NS 1,000 ML IV SCH; +diphenhydrAMINE 50MG/ML VIAL IV PRN; +methylPREDNISolone 125MG 2ML VIAL IV PRN
[2022-09-15 15:40] VITALS: BP 131/86
[2022-09-15 16:30] VITALS: BP 129/79
[2022-09-15 17:18] VITALS: BP 153/84
[2022-09-15 17:20] VITALS: BP 153/84
== END 2022-09-15 17:20 | disposition home or self-care (01) ==
LOC: M INFU 15:35
PROVIDERS: ATTEND Internal Medicine Rheumatology
DX: M06.00 Rheumatoid arthritis without rheumatoid factor, unspecified site (principal)
CPT/HCPCS: 96413; Q5103

== ENCOUNTER 2022-10-27 15:30 | Outpatient (CLI) | payer BC, MEDICAID ==
[~2022-10-27] VITALS: Ht 185.4 cm; Wt 84.4 kg
[2022-10-27 15:30] VITALS: BP 122/79
[2022-10-27 15:47] VITALS: BP 122/79
[2022-10-27 16:15] VITALS: BP 155/78
[2022-10-27 17:07] VITALS: BP 140/72
== END 2022-10-27 17:10 | disposition home or self-care (01) ==
LOC: M INFU 15:30
PROVIDERS: ATTEND Internal Medicine Rheumatology
DX: M06.00 Rheumatoid arthritis without rheumatoid factor, unspecified site (principal)
CPT/HCPCS: 96413; Q5103

== ENCOUNTER → 2022-11-01 | Outpatient (CLI) | payer BC, MEDICAID ==
[~2022-11-01] MED LIST changes: -ACETAMINOPHEN 650MG PO PRIOR TO INFUSION PO ONE; -ALBUTEROL SULFATE 2.5MG/0.5ML INH NEB SOLN INH PRN; -EPINEPHrine INJ 1 MG/ML 1ML AMP IM PRN; -INFLIXIMAB BIOSIMILAR 800 MG in NS 170 ML IV ONE; -NS 1,000 ML IV SCH; -diphenhydrAMINE 50MG/ML VIAL IV PRN; -methylPREDNISolone 125MG 2ML VIAL IV PRN
[2022-11-01 17:30] LABS: BASO # 0.1 10^3/uL (0.0-0.2); BASO % 0.6 % (0.0-1.0); EOS # 0.4 10^3/uL (0.0-0.5); EOS % 3.4 % (0.0-3.0); HEMATOCRIT 46.1 % (42.0-52.0); HEMOGLOBIN 15.6 g/dl (13.5-17.5); LYMPH # 4.7 10^3/uL (1.5-5.0); MEAN CORPUSCULAR HEMOGLOBIN 29.9 pg (27.0-33.0); MEAN CORPUSCULAR HGB CONC 33.8 g/dl (32.0-36.5); MEAN CORPUSCULAR VOLUME 88.3 fl (80.0-96.0); MONO # 0.8 10^3/uL (0.0-0.8); MONO % 6.7 % (2.0-8.0); NEUTROPHILS # 5.2 10^3/uL (1.5-8.5); PLATELET COUNT, AUTOMATED 330 10^3/uL (150-450); RED BLOOD COUNT 5.22 10^6/uL (4.30-6.10); WHITE BLOOD COUNT 11.1 10^3/uL (4.0-10.0)
[2022-11-01 18:00] LABS: ALBUMIN 3.9 G/DL (3.2-5.2); ALKALINE PHOSPHATASE 96 U/L (46-116); ALT/SGPT 17 U/L (7.0-40); AST/SGOT 19 U/L (<34); BILIRUBIN,TOTAL 0.3 MG/DL (0.3-1.2); BLOOD UREA NITROGEN 16 MG/DL (9-23); C REACTIVE PROTEIN QUANTITATIV < 0.40 MG/DL (<1.0); CARBON DIOXIDE LEVEL 26 MMOL/L (20-31); CHLORIDE LEVEL 104 MMOL/L (98-107); CREATININE FOR GFR 0.85 MG/DL (0.70-1.30); GLOMERULAR FILTRATION RATE > 60.0 (>60); GLUCOSE, FASTING 77 MG/DL (60-100); SODIUM LEVEL 139 MMOL/L (136-145); TOTAL PROTEIN 7.1 G/DL (5.7-8.2)
[2022-11-01 18:08] LABS: ERYTHROCYTE SEDIMENTATION RATE 9 mm/hr (0-15)
== END ==
LOC: M LAB 16:14
PROVIDERS: ATTEND Internal Medicine Rheumatology
DX: M08.00 Unspecified juvenile rheumatoid arthritis of unspecified site (principal); K50.10 Crohn's disease of large intestine without complications; M79.604 Pain in right leg; Z79.899 Other long term (current) drug therapy

== ENCOUNTER 2022-12-10 13:55 | Outpatient (CLI) | payer BC, MEDICAID ==
[2022-12-10 13:55] VITALS: BP 131/77; O2SAT 99
[~2022-12-10 13:55] MED LIST changes: +ALBUTEROL SULFATE 2.5MG/0.5ML INH NEB SOLN INH PRN; +EPINEPHrine INJ 1 MG/ML 1ML AMP IM PRN; +diphenhydrAMINE 50MG/ML VIAL IV PRN; +methylPREDNISolone 125MG 2ML VIAL IV PRN
[2022-12-10 14:00] VITALS: BP 131/77; TEMP 98.5; O2SAT 100
[2022-12-10] MEDS ORDERED: INFLIXIMAB BIOSIMILAR 800 MG in NS 170 ML IV ONE (14:00)
[2022-12-10] MEDS ORDERED: ACETAMINOPHEN 650MG PO PRIOR TO INFUSION PO ONE (14:00)
[2022-12-10] MEDS ORDERED: NS 1,000 ML IV SCH (14:00)
[2022-12-10 15:30] VITALS: BP 144/76; O2SAT 96
== END 2022-12-10 15:30 ==
LOC: M INFU 13:55
PROVIDERS: ATTEND Internal Medicine Rheumatology
DX: M08.00 Unspecified juvenile rheumatoid arthritis of unspecified site (principal)
CPT/HCPCS: 96413; Q5103

== ENCOUNTER 2023-01-19 15:05 | Outpatient (CLI) | payer BC, MEDICAID ==
[~2023-01-19] VITALS: Ht 185.4 cm; Wt 77.3 kg
[2023-01-19 15:05] VITALS: BP 132/80; O2SAT 99
[2023-01-19] MEDS ORDERED: NS 1,000 ML IV SCH (15:35)
[2023-01-19] MEDS ORDERED: ACETAMINOPHEN 650MG PO PRIOR TO INFUSION PO ONE (15:35)
[2023-01-19] MEDS ORDERED: INFLIXIMAB BIOSIMILAR 700 MG in NS 180 ML IV ONE (16:00)
[2023-01-19 16:10] VITALS: BP 133/78; TEMP 97.8; O2SAT 100
[2023-01-19 16:25] VITALS: BP 118/66; TEMP 98; O2SAT 99
[2023-01-19 17:24] VITALS: BP 134/82; O2SAT 99
== END 2023-01-19 17:25 | disposition home or self-care (01) ==
LOC: M INFU 15:05
PROVIDERS: ATTEND Internal Medicine Rheumatology
DX: M08.00 Unspecified juvenile rheumatoid arthritis of unspecified site (principal)
CPT/HCPCS: 96413; Q5103

== ENCOUNTER → 2023-02-03 | Outpatient (REF) | payer BC, MEDICAID ==
[~2023-02-03] MED LIST changes: -ALBUTEROL SULFATE 2.5MG/0.5ML INH NEB SOLN INH PRN; -EPINEPHrine INJ 1 MG/ML 1ML AMP IM PRN; -diphenhydrAMINE 50MG/ML VIAL IV PRN; -methylPREDNISolone 125MG 2ML VIAL IV PRN
[2023-02-03 19:07] LABS: BASO # 0.1 10^3/uL (0.0-0.2); BASO % 0.7 % (0.0-1.0); EOS # 0.2 10^3/uL (0.0-0.5); EOS % 2.9 % (0.0-3.0); HEMATOCRIT 46.7 % (42.0-52.0); HEMOGLOBIN 15.4 g/dl (13.5-17.5); LYMPH # 3.4 10^3/uL (1.5-5.0); LYMPH % 40.1 % (24.0-44.0); MEAN CORPUSCULAR HEMOGLOBIN 29.8 pg (27.0-33.0); MEAN CORPUSCULAR VOLUME 90.3 fl (80.0-96.0); MONO # 0.8 10^3/uL (0.0-0.8); MONO % 9.5 % (2.0-8.0); NEUTROPHILS # 3.9 10^3/uL (1.5-8.5); NEUTROPHILS % 46.6 % (36.0-66.0); PLATELET COUNT, AUTOMATED 330 10^3/uL (150-450); RED BLOOD COUNT 5.17 10^6/uL (4.30-6.10); WHITE BLOOD COUNT 8.4 10^3/uL (4.0-10.0)
[2023-02-03 19:29] LABS: ALBUMIN 4.1 G/DL (3.2-5.2); ALKALINE PHOSPHATASE 89 U/L (46-116); ALT/SGPT 30 U/L (7.0-40); AST/SGOT 21 U/L (<34); BILIRUBIN,TOTAL 0.3 MG/DL (0.3-1.2); BLOOD UREA NITROGEN 16 MG/DL (9-23); C REACTIVE PROTEIN QUANTITATIV < 0.40 MG/DL (<1.0); CARBON DIOXIDE LEVEL 26 MMOL/L (20-31); CHLORIDE LEVEL 104 MMOL/L (98-107); CREATININE FOR GFR 0.81 MG/DL (0.70-1.30); ERYTHROCYTE SEDIMENTATION RATE 11 mm/hr (0-15); GLOMERULAR FILTRATION RATE > 60.0 (>60); GLUCOSE, FASTING 63 MG/DL (60-100); POTASSIUM SERUM 4.3 MMOL/L (3.5-5.1); SODIUM LEVEL 140 MMOL/L (136-145); TOTAL PROTEIN 7.2 G/DL (5.7-8.2)
== END ==
LOC: M SFHCRHEU 13:46
PROVIDERS: ATTEND Internal Medicine Rheumatology
DX: M08.00 Unspecified juvenile rheumatoid arthritis of unspecified site (principal); K50.10 Crohn's disease of large intestine without complications; M79.604 Pain in right leg; Z79.899 Other long term (current) drug therapy

== ENCOUNTER → 2023-02-10 | Outpatient (REF) | payer BC, MEDICAID ==
[2023-02-10 13:36] LABS: GC DNA AMPLIFICATION NEGATIVE (NEGATIVE)
[2023-02-10 14:09] LABS: HIV 1&2 SCREEN NEGATIVE (NEGATIVE)
[2023-02-10 14:15] LABS: HEPATITIS C VIRUS ABY INDEX 0.15 INDEX (<0.8)
[2023-02-10 14:16] LABS: HEPATITIS B CORE ANTIBODY IGM NEGATIVE (NEGATIVE)
[2023-02-10 14:33] LABS: GC DNA AMPLIFICATION NEGATIVE (NEGATIVE)
[2023-02-10 16:40] LABS: GC DNA AMPLIFICATION NEGATIVE (NEGATIVE)
[2023-02-11 17:31] LABS: FERRITIN 23.8 NG/ML (10.5-307.3)
== END ==
LOC: M LAB REF 11:38
PROVIDERS: ATTEND Internal Medicine
DX: G25.81 Restless legs syndrome (principal); K50.90 Crohn's disease, unspecified, without complications; M06.9 Rheumatoid arthritis, unspecified; Z72.52 High risk homosexual behavior

== ENCOUNTER 2023-03-02 15:30 | Outpatient (CLI) | payer BC, MEDICAID ==
[~2023-03-02] VITALS: Ht 185.4 cm; Wt 78.0 kg
[2023-03-02 15:30] VITALS: BP 156/78; O2SAT 99
[~2023-03-02 15:30] MED LIST changes: +ALBUTEROL SULFATE 2.5MG/0.5ML INH NEB SOLN INH PRN; +EPINEPHrine INJ 1 MG/ML 1ML AMP IM PRN; +diphenhydrAMINE 50MG/ML VIAL IV PRN; +methylPREDNISolone 125MG 2ML VIAL IV PRN
[2023-03-02 15:40] VITALS: BP 156/78; TEMP 98.5; O2SAT 99
[2023-03-02] MEDS ORDERED: ACETAMINOPHEN 650MG PO PRIOR TO INFUSION PO ONE (15:45)
[2023-03-02] MEDS ORDERED: INFLIXIMAB BIOSIMILAR 800 MG in NS 170 ML IV ONE (15:45)
[2023-03-02 16:45] VITALS: BP 133/75; O2SAT 100
[2023-03-02 17:25] VITALS: BP 131/90; O2SAT 100
== END 2023-03-02 17:25 | disposition home or self-care (01) ==
LOC: M INFU 15:30
PROVIDERS: ATTEND Internal Medicine Rheumatology
DX: M08.00 Unspecified juvenile rheumatoid arthritis of unspecified site (principal)
CPT/HCPCS: 96413; Q5103

== ENCOUNTER 2023-04-13 15:25 | Outpatient (CLI) | payer BC, MEDICAID ==
[~2023-04-13] VITALS: Ht 185.4 cm; Wt 77.0 kg
[2023-04-13 15:25] VITALS: BP 139/78; O2SAT 96
[2023-04-13] MEDS ORDERED: ACETAMINOPHEN TAB 650MG DOSE (2X325MG) PO ONE (15:35)
[2023-04-13] MEDS ORDERED: INFLIXIMAB BIOSIMILAR 800 MG in NS 170 ML IV ONE (16:00)
[2023-04-13 17:15] VITALS: BP 128/96; O2SAT 99
== END 2023-04-13 17:15 ==
LOC: M INFU 15:25
PROVIDERS: ATTEND Internal Medicine Rheumatology
DX: M08.00 Unspecified juvenile rheumatoid arthritis of unspecified site (principal)
CPT/HCPCS: 96413; Q5103

== ENCOUNTER 2023-05-25 15:25 | Outpatient (CLI) | payer BC, MEDICAID ==
[~2023-05-25] VITALS: Ht 185.4 cm; Wt 77.0 kg
[2023-05-25 15:25] VITALS: BP_SYST 130; BP_SYST 138; BP_DIAS 79; BP_DIAS 9; O2SAT 100; O2SAT 99
[~2023-05-25 15:25] MED LIST changes: -EFFE150C2 PO; +EFFE150C3 PO; -EFFE37.5 PO; +EFFE37.52 PO
[2023-05-25] MEDS ORDERED: ACETAMINOPHEN 650MG PO PRIOR TO INFUSION PO ONE (15:30)
[2023-05-25] MEDS ORDERED: NS 1,000 ML IV SCH (15:30)
[2023-05-25] MEDS ORDERED: INFLIXIMAB BIOSIMILAR 800 MG in NS 170 ML IV ONE (15:30)
[2023-05-25 15:58] VITALS: BP 148/72; TEMP 97.9; O2SAT 98
[2023-05-25 16:42] VITALS: BP 124/88; TEMP 98; O2SAT 99
== END 2023-05-25 16:45 | disposition home or self-care (01) ==
LOC: M INFU 15:25
PROVIDERS: ATTEND Internal Medicine Rheumatology
DX: M08.00 Unspecified juvenile rheumatoid arthritis of unspecified site (principal)
CPT/HCPCS: 96413; Q5103

== ENCOUNTER → 2023-06-08 | Outpatient (CLI) | payer BC, MEDICAID ==
[~2023-06-08] MED LIST changes: -ALBUTEROL SULFATE 2.5MG/0.5ML INH NEB SOLN INH PRN; -EPINEPHrine INJ 1 MG/ML 1ML AMP IM PRN; -diphenhydrAMINE 50MG/ML VIAL IV PRN; -methylPREDNISolone 125MG 2ML VIAL IV PRN
[2023-06-08 16:59] LABS: BASO # 0.1 10^3/uL (0.0-0.2); BASO % 0.5 % (0.0-1.0); EOS # 0.4 10^3/uL (0.0-0.5); EOS % 3.6 % (0.0-3.0); HEMATOCRIT 46.4 % (42.0-52.0); HEMOGLOBIN 16.2 g/dl (13.5-17.5); LYMPH # 3.5 10^3/uL (1.5-5.0); LYMPH % 33.5 % (24.0-44.0); MEAN CORPUSCULAR HEMOGLOBIN 31.6 pg (27.0-33.0); MEAN CORPUSCULAR HGB CONC 34.9 g/dl (32.0-36.5); MEAN CORPUSCULAR VOLUME 90.4 fl (80.0-96.0); MONO # 0.6 10^3/uL (0.0-0.8); MONO % 6.1 % (2.0-8.0); NEUTROPHILS # 5.9 10^3/uL (1.5-8.5); PLATELET COUNT, AUTOMATED 344 10^3/uL (150-450); RED BLOOD COUNT 5.13 10^6/uL (4.30-6.10); WHITE BLOOD COUNT 10.6 10^3/uL (4.0-10.0)
== END ==
LOC: M LAB 16:12
PROVIDERS: ATTEND Internal Medicine Pulmonary Disease
DX: J45.20 Mild intermittent asthma, uncomplicated (principal)

== ENCOUNTER 2023-07-06 14:53 | Outpatient (CLI) | payer BC, MEDICAID ==
[~2023-07-06] VITALS: Ht 185.4 cm; Wt 78.7 kg
[2023-07-06 15:05] VITALS: BP 157/85; O2SAT 97
[2023-07-06] MEDS ORDERED: ACETAMINOPHEN 650MG PO PRIOR TO INFUSION PO ONE (15:30)
[2023-07-06] MEDS ORDERED: diphenhydrAMINE 50MG/ML VIAL IV PRN (15:30)
[2023-07-06] MEDS ORDERED: INFLIXIMAB BIOSIMILAR 800 MG in NS 170 ML IV ONE (15:30)
[2023-07-06] MEDS ORDERED: EPINEPHrine INJ 1 MG/ML 1ML AMP IM PRN (15:30)
[2023-07-06] MEDS ORDERED: methylPREDNISolone 125MG 2ML VIAL IV PRN (15:30)
[2023-07-06] MEDS ORDERED: NS 1,000 ML IV SCH (15:30)
[2023-07-06] MEDS ORDERED: ALBUTEROL SULFATE 2.5MG/0.5ML INH NEB SOLN INH PRN (15:30)
[2023-07-06 16:00] VITALS: BP 139/71; O2SAT 99
[2023-07-06 16:37] VITALS: BP 159/76; O2SAT 98
== END 2023-07-06 16:40 | disposition home or self-care (01) ==
LOC: M INFU 14:53
PROVIDERS: ATTEND Internal Medicine Rheumatology
DX: M08.00 Unspecified juvenile rheumatoid arthritis of unspecified site (principal)
CPT/HCPCS: 96413; Q5103

== ENCOUNTER → 2023-08-15 | Outpatient (CLI) | payer BC, MEDICAID ==
[2023-08-15 19:16] LABS: BASO % 0.5 % (0.0-1.0); EOS # 0.4 10^3/uL (0.0-0.5); EOS % 4.7 % (0.0-3.0); HEMATOCRIT 46.2 % (42.0-52.0); HEMOGLOBIN 15.8 g/dl (13.5-17.5); LYMPH # 4.5 10^3/uL (1.5-5.0); LYMPH % 52.5 % (24.0-44.0); MEAN CORPUSCULAR HEMOGLOBIN 31.4 pg (27.0-33.0); MEAN CORPUSCULAR HGB CONC 34.2 g/dl (32.0-36.5); MEAN CORPUSCULAR VOLUME 91.8 fl (80.0-96.0); MONO # 0.6 10^3/uL (0.0-0.8); MONO % 6.5 % (2.0-8.0); NEUTROPHILS # 3.1 10^3/uL (1.5-8.5); NEUTROPHILS % 35.7 % (36.0-66.0); PLATELET COUNT, AUTOMATED 319 10^3/uL (150-450); RED BLOOD COUNT 5.03 10^6/uL (4.30-6.10); WHITE BLOOD COUNT 8.6 10^3/uL (4.0-10.0)
[2023-08-15 19:31] LABS: ERYTHROCYTE SEDIMENTATION RATE 11 mm/hr (0-15)
[2023-08-15 19:49] LABS: C REACTIVE PROTEIN QUANTITATIV < 0.40 MG/DL (<1.0)
[2023-08-15 19:51] LABS: ALBUMIN 4.3 G/DL (3.2-5.2); ALKALINE PHOSPHATASE 104 U/L (46-116); ALT/SGPT 45 U/L (7.0-40); AST/SGOT 35 U/L (<34); BILIRUBIN,TOTAL 0.3 MG/DL (0.3-1.2); BLOOD UREA NITROGEN 13 MG/DL (9-23); CALCIUM LEVEL 8.8 MG/DL (8.5-10.1); CARBON DIOXIDE LEVEL 30 MMOL/L (20-31); CHLORIDE LEVEL 105 MMOL/L (98-107); CREATININE FOR GFR 0.79 MG/DL (0.70-1.30); GLOMERULAR FILTRATION RATE > 60.0 (>60); GLUCOSE, FASTING 87 MG/DL (60-100); POTASSIUM SERUM 4.3 MMOL/L (3.5-5.1); SODIUM LEVEL 138 MMOL/L (136-145); TOTAL PROTEIN 7.5 G/DL (5.7-8.2)
== END ==
LOC: M LAB 18:26
PROVIDERS: ATTEND Internal Medicine Rheumatology
DX: M08.00 Unspecified juvenile rheumatoid arthritis of unspecified site (principal); K50.10 Crohn's disease of large intestine without complications; M79.604 Pain in right leg; Z79.899 Other long term (current) drug therapy

== ENCOUNTER 2023-08-23 15:25 | Outpatient (CLI) | payer BC, MEDICAID ==
[~2023-08-23] VITALS: Ht 185.4 cm; Wt 80.2 kg
[2023-08-23 15:25] VITALS: BP 127/75; O2SAT 100
[~2023-08-23 15:25] MED LIST changes: +ALBUTEROL SULFATE 2.5MG/0.5ML INH NEB SOLN INH PRN; +EPINEPHrine INJ 1 MG/ML 1ML AMP IM PRN; +diphenhydrAMINE 50MG/ML VIAL IV PRN; +methylPREDNISolone 125MG 2ML VIAL IV PRN
[2023-08-23] MEDS ORDERED: ACETAMINOPHEN TAB 650MG DOSE (2X325MG) PO ONE (16:00)
[2023-08-23] MEDS: INFLIXIMAB BIOSIMILAR 800 MG in NS 170 ML IV ONE (16:13)
[2023-08-23 16:35] VITALS: BP 126/79; O2SAT 99
[2023-08-23 17:15] VITALS: BP 131/76; O2SAT 99
== END 2023-08-23 17:15 | disposition home or self-care (01) ==
LOC: M INFU 15:25
PROVIDERS: ATTEND Internal Medicine Rheumatology
DX: M08.00 Unspecified juvenile rheumatoid arthritis of unspecified site (principal)
CPT/HCPCS: 96413; Q5103

== ENCOUNTER 2023-10-04 15:17 | Outpatient (CLI) | payer BC, MEDICAID ==
[~2023-10-04] VITALS: Ht 185.4 cm; Wt 80.0 kg
[2023-10-04 15:23] VITALS: BP 128/83; TEMP 97.3; O2SAT 98
[2023-10-04] MEDS: INFLIXIMAB BIOSIMILAR 800 MG in NS 170 ML IV ONE (15:55)
[2023-10-04] MEDS: ACETAMINOPHEN 650MG PO PRIOR TO INFUSION PO ONE (15:56)
[2023-10-04 17:00] VITALS: BP 136/77; O2SAT 100
== END 2023-10-04 17:00 | disposition home or self-care (01) ==
LOC: M INFU 15:17
PROVIDERS: ATTEND Internal Medicine Rheumatology
DX: M08.00 Unspecified juvenile rheumatoid arthritis of unspecified site (principal)
CPT/HCPCS: 96413; Q5103

== ENCOUNTER → 2023-10-31 | Outpatient (REF) | payer BC, MEDICAID ==
[~2023-10-31] MED LIST changes: -ALBUTEROL SULFATE 2.5MG/0.5ML INH NEB SOLN INH PRN; -EPINEPHrine INJ 1 MG/ML 1ML AMP IM PRN; -diphenhydrAMINE 50MG/ML VIAL IV PRN; -methylPREDNISolone 125MG 2ML VIAL IV PRN
[2023-10-31 17:19] LABS: PERCENT SATURATION 18.7 % (19.7-50.0)
[2023-10-31 17:22] LABS: FERRITIN 16.8 NG/ML (10.5-307.3)
== END ==
LOC: M LAB REF 16:15
PROVIDERS: ATTEND Internal Medicine
DX: E61.1 Iron deficiency (principal)

== ENCOUNTER 2023-12-02 11:10 | Outpatient (CLI) | payer BC ==
[~2023-12-02] VITALS: Ht 185.4 cm; Wt 79.0 kg
[2023-12-02 11:10] VITALS: BP 146/68; O2SAT 99
[~2023-12-02 11:10] MED LIST changes: +ALBUTEROL SULFATE 2.5MG/0.5ML INH NEB SOLN INH PRN; +EPINEPHrine INJ 1 MG/ML 1ML AMP IM PRN; +diphenhydrAMINE 50MG/ML VIAL IV PRN; +methylPREDNISolone 125MG 2ML VIAL IV PRN
[2023-12-02] MEDS: ACETAMINOPHEN 650MG PO PRIOR TO INFUSION PO ONE (11:14)
[2023-12-02] MEDS: INFLIXIMAB BIOSIMILAR 800 MG in NS 170 ML IV ONE (12:05)
[2023-12-02 12:29] VITALS: BP 127/65; O2SAT 99
[2023-12-02 13:10] VITALS: BP 131/73; O2SAT 100
== END 2023-12-02 13:15 ==
LOC: M INFU 11:10
PROVIDERS: ATTEND Internal Medicine Rheumatology
DX: M08.00 Unspecified juvenile rheumatoid arthritis of unspecified site (principal)
CPT/HCPCS: 96413; Q5103

== ENCOUNTER 2024-01-13 15:40 | Outpatient (CLI) | payer BC, MEDICAID ==
[~2024-01-13] VITALS: Ht 185.4 cm; Wt 79.5 kg
[~2024-01-13 15:40] MED LIST changes: +ACETAMINOPHEN 650MG PO PRIOR TO INFUSION PO ONE
[2024-01-13] MEDS: INFLIXIMAB BIOSIMILAR 800 MG in NS 170 ML IV ONE (16:30)
[2024-01-13 17:00] VITALS: BP 124/58; O2SAT 97
[2024-01-13 17:40] VITALS: BP 115/63; O2SAT 97
== END 2024-01-13 17:40 ==
LOC: M INFU 15:40
PROVIDERS: ATTEND Internal Medicine Rheumatology
DX: M08.00 Unspecified juvenile rheumatoid arthritis of unspecified site (principal)
CPT/HCPCS: 96413; Q5103

== ENCOUNTER 2024-02-24 15:35 | Outpatient (CLI) | payer BC ==
[~2024-02-24] VITALS: Ht 185.4 cm; Wt 79.5 kg
[~2024-02-24 15:35] MED LIST changes: -ACETAMINOPHEN 650MG PO PRIOR TO INFUSION PO ONE
[2024-02-24 15:40] VITALS: BP 133/76; O2SAT 96
[2024-02-24] MEDS: INFLIXIMAB BIOSIMILAR 800 MG in NS 170 ML IV ONE (16:08)
[2024-02-24] MEDS: ACETAMINOPHEN 650MG PO PRIOR TO INFUSION PO ONE (16:08)
[2024-02-24 17:15] VITALS: BP 123/65; O2SAT 97
== END 2024-02-24 17:15 | disposition home or self-care (01) ==
LOC: M INFU 15:35
PROVIDERS: ATTEND Internal Medicine Rheumatology
DX: M08.00 Unspecified juvenile rheumatoid arthritis of unspecified site (principal)
CPT/HCPCS: 96413; Q5103

== ENCOUNTER 2024-03-14 08:53 | Outpatient (CLI) | payer BC ==
[~2024-03-14] VITALS: Ht 185.4 cm; Wt 79.5 kg
[~2024-03-14 08:53] MED LIST changes: +NS 1,000 ML IV SCH
[2024-03-14 08:55] VITALS: BP 127/70; O2SAT 93
[2024-03-14] MEDS: IRON SUCROSE 25 MG in NS 23.75 ML IV ONE (09:35)
[2024-03-14] MEDS: IRON SUCROSE 475 MG in NS 250 ML IV ONE (10:30)
[2024-03-14 11:15] VITALS: BP 114/58; O2SAT 96
[2024-03-14 12:00] VITALS: BP 112/62; O2SAT 95
[2024-03-14 13:00] VITALS: BP 113/56; O2SAT 100
[2024-03-14 14:10] VITALS: BP 131/64; O2SAT 97
== END 2024-03-14 14:55 ==
LOC: M INFU 08:53
PROVIDERS: ATTEND Internal Medicine
DX: E61.1 Iron deficiency (principal)
CPT/HCPCS: 96365; 96366; J1756

== ENCOUNTER → 2024-04-11 | Outpatient (CLI) | payer BC ==
[~2024-04-11] VITALS: Ht 185.4 cm; Wt 87.7 kg
[~2024-04-11] MED LIST changes: +ACETAMINOPHEN 650MG PO PRIOR TO INFUSION PO ONE; +INFLIXIMAB BIOSIMILAR 800 MG in NS 170 ML IV ONE; -NS 1,000 ML IV SCH
[2024-04-11] MEDS: ACETAMINOPHEN 650MG PO PRIOR TO INFUSION PO ONE (15:30)
[2024-04-11 16:00] VITALS: BP 120/67; TEMP 97.6; O2SAT 97
[2024-04-11 16:03] VITALS: BP 120/67; O2SAT 97
[2024-04-11] MEDS: INFLIXIMAB BIOSIMILAR 800 MG in NS 170 ML IV ONE (16:28)
[2024-04-11 16:49] VITALS: BP 122/69; O2SAT 99
[2024-04-11 17:44] VITALS: BP 119/67; O2SAT 99
== END ==
LOC: M INFU 15:38
PROVIDERS: ATTEND Internal Medicine Rheumatology
DX: M08.00 Unspecified juvenile rheumatoid arthritis of unspecified site (principal)
CPT/HCPCS: 96413; Q5103

== ENCOUNTER → 2024-04-13 | Outpatient (CLI) | payer BC ==
[~2024-04-13] MED LIST changes: -ACETAMINOPHEN 650MG PO PRIOR TO INFUSION PO ONE; -ALBUTEROL SULFATE 2.5MG/0.5ML INH NEB SOLN INH PRN; -EPINEPHrine INJ 1 MG/ML 1ML AMP IM PRN; -INFLIXIMAB BIOSIMILAR 800 MG in NS 170 ML IV ONE; -diphenhydrAMINE 50MG/ML VIAL IV PRN; -methylPREDNISolone 125MG 2ML VIAL IV PRN
[2024-04-13 17:43] LABS: HEMATOCRIT 38.1 % (42.0-52.0); HEMOGLOBIN 12.7 g/dl (13.5-17.5); MEAN CORPUSCULAR HEMOGLOBIN 28.9 pg (27.0-33.0); MEAN CORPUSCULAR HGB CONC 33.3 g/dl (32.0-36.5); MEAN CORPUSCULAR VOLUME 86.8 fl (80.0-96.0); PLATELET COUNT, AUTOMATED 386 10^3/uL (150-450); RED BLOOD COUNT 4.39 10^6/uL (4.30-6.10); WHITE BLOOD COUNT 11.6 10^3/uL (4.0-10.0)
[2024-04-13 18:03] LABS: ALBUMIN 3.5 G/DL (3.2-5.2); ALKALINE PHOSPHATASE 104 U/L (40-129); ALT/SGPT 15 U/L (7.0-40); AST/SGOT < 8 U/L (<34); BILIRUBIN,TOTAL 0.2 MG/DL (0.3-1.2); BLOOD UREA NITROGEN 15 MG/DL (9-23); CALCIUM LEVEL 9.2 MG/DL (8.5-10.1); CARBON DIOXIDE LEVEL 30 MMOL/L (20-31); CHLORIDE LEVEL 107 MMOL/L (98-107); CREATININE FOR GFR 0.76 MG/DL (0.70-1.30); GLOMERULAR FILTRATION RATE > 60.0 (>60); GLUCOSE, FASTING 90 MG/DL (60-100); POTASSIUM SERUM 4.3 MMOL/L (3.5-5.1); SODIUM LEVEL 141 MMOL/L (136-145); TOTAL PROTEIN 7.2 G/DL (5.7-8.2)
[2024-04-13 18:18] LABS: EOSINOPHILS 9 % (0-3); LYMPHOCYTES 46 % (16-44); MONOCYTES 4 % (0-5); NEUTROPHILS 41 % (28-66); SPHEROCYTES 1+
[2024-04-13 18:19] LABS: PLATELET ESTIMATE NORMAL (NORMAL)
[2024-04-13 18:24] LABS: ERYTHROCYTE SEDIMENTATION RATE 47 mm/hr (0-15)
== END ==
LOC: M LAB 16:46
PROVIDERS: ATTEND Internal Medicine Rheumatology
DX: M08.00 Unspecified juvenile rheumatoid arthritis of unspecified site (principal); K50.10 Crohn's disease of large intestine without complications; M79.604 Pain in right leg; Z79.899 Other long term (current) drug therapy

== ENCOUNTER → 2024-04-30 | Outpatient (CLI) | payer BC ==
[2024-04-30 13:49] LABS: BASO # 0.1 10^3/uL (0.0-0.2); BASO % 0.9 % (0.0-1.0); EOS # 0.6 10^3/uL (0.0-0.5); EOS % 6.5 % (0.0-3.0); HEMATOCRIT 44.5 % (42.0-52.0); HEMOGLOBIN 14.8 g/dl (13.5-17.5); LYMPH # 3.5 10^3/uL (1.5-5.0); LYMPH % 40.6 % (24.0-44.0); MEAN CORPUSCULAR HEMOGLOBIN 29.5 pg (27.0-33.0); MEAN CORPUSCULAR HGB CONC 33.3 g/dl (32.0-36.5); MEAN CORPUSCULAR VOLUME 88.6 fl (80.0-96.0); MONO # 0.4 10^3/uL (0.0-0.8); MONO % 4.2 % (2.0-8.0); NEUTROPHILS # 4.1 10^3/uL (1.5-8.5); NEUTROPHILS % 47.5 % (36.0-66.0); PLATELET COUNT, AUTOMATED 364 10^3/uL (150-450); RED BLOOD COUNT 5.02 10^6/uL (4.30-6.10); WHITE BLOOD COUNT 8.6 10^3/uL (4.0-10.0)
[2024-04-30 13:54] LABS: ERYTHROCYTE SEDIMENTATION RATE 9 mm/hr (0-15)
[2024-04-30 14:12] LABS: C REACTIVE PROTEIN QUANTITATIV < 0.40 MG/DL (<1.0)
[2024-04-30 14:14] LABS: ALKALINE PHOSPHATASE 87 U/L (40-129); ALT/SGPT 16 U/L (7.0-40); AST/SGOT 9 U/L (<34); BILIRUBIN,TOTAL 0.3 MG/DL (0.3-1.2); BLOOD UREA NITROGEN 13 MG/DL (9-23); CALCIUM LEVEL 9.3 MG/DL (8.5-10.1); CARBON DIOXIDE LEVEL 30 MMOL/L (20-31); CHLORIDE LEVEL 107 MMOL/L (98-107); CREATININE FOR GFR 0.83 MG/DL (0.70-1.30); GLOMERULAR FILTRATION RATE > 60.0 (>60); GLUCOSE, FASTING 114 MG/DL (60-100); IRON (FE) 129 UG/DL (65-175); POTASSIUM SERUM 4.3 MMOL/L (3.5-5.1); SODIUM LEVEL 141 MMOL/L (136-145); TOTAL IRON BINDING CAPACITY 293 UG/DL (250-425); TOTAL PROTEIN 7.6 G/DL (5.7-8.2)
== END ==
LOC: M LAB 12:58
PROVIDERS: ATTEND Internal Medicine Rheumatology
DX: M08.00 Unspecified juvenile rheumatoid arthritis of unspecified site (principal)

== ENCOUNTER → 2024-05-06 | Outpatient (CLI) | payer BC | LOC: M RAD 12:37 → M LAB 12:37 | PROVIDERS: ATTEND Registered Nurse | DX: J06.9 Acute upper respiratory infection, unspecified (principal) ==

== ENCOUNTER → 2024-05-06 | Outpatient (REF) | payer BC ==
[~2024-05-06] MED LIST changes: +MAGICMW SSP
== END ==
LOC: M LAB REF 18:51
PROVIDERS: ATTEND Registered Nurse
DX: J06.9 Acute upper respiratory infection, unspecified (principal)

== ENCOUNTER 2024-05-12 17:06 | Emergency (ER) | payer BC ==
[~2024-05-12] VITALS: Ht 185.4 cm; Wt 83.0 kg
[~2024-05-12 17:06] MED LIST changes: -MAGICMW SSP
[2024-05-12] MEDS ORDERED: MAGICMW SSP (19:12)
[2024-05-12] MEDS: MAGIC MOUTHWASH 5ML ORAL SYRINGE SS ONE ×2 (19:20→20:35)
[2024-05-12 20:03] VITALS: BP 132/65; TEMP 98.9; O2SAT 100
== END 2024-05-12 20:37 | disposition home or self-care (01) ==
LOC: M ED 17:06
DX: B37.0 Candidal stomatitis (principal); K12.1 Other forms of stomatitis; D64.9 Anemia, unspecified; K50.90 Crohn's disease, unspecified, without complications; M06.9 Rheumatoid arthritis, unspecified; F17.200 Nicotine dependence, unspecified, uncomplicated; Z79.899 Other long term (current) drug therapy

== ENCOUNTER 2024-05-25 15:35 | Outpatient (CLI) | payer BC ==
[~2024-05-25] VITALS: Ht 185.4 cm; Wt 87.3 kg
[2024-05-25] MEDS: ACETAMINOPHEN 650MG PO PRIOR TO INFUSION PO ONE (15:30)
[~2024-05-25 15:35] MED LIST changes: +ALBUTEROL SULFATE 2.5MG/0.5ML INH NEB SOLN INH PRN; +EPINEPHrine INJ 1 MG/ML 1ML AMP IM PRN; +INFLIXIMAB BIOSIMILAR 800 MG in NS 170 ML IV ONE; +MAGICMW SSP; +NS 1,000 ML IV SCH; +diphenhydrAMINE 50MG/ML VIAL IV PRN; +methylPREDNISolone 125MG 2ML VIAL IV PRN
[2024-05-25] MEDS: INFLIXIMAB BIOSIMILAR 800 MG in NS 170 ML IV ONE (16:32)
[2024-05-25 17:45] VITALS: BP 134/78; O2SAT 98
== END 2024-05-25 17:50 ==
LOC: M INFU 15:35
PROVIDERS: ATTEND Internal Medicine Rheumatology
DX: M08.00 Unspecified juvenile rheumatoid arthritis of unspecified site (principal)
CPT/HCPCS: 96413; Q5103

== ENCOUNTER → 2024-06-03 | Outpatient (CLI) | payer BC ==
[~2024-06-03] MED LIST changes: -ALBUTEROL SULFATE 2.5MG/0.5ML INH NEB SOLN INH PRN; -EPINEPHrine INJ 1 MG/ML 1ML AMP IM PRN; -INFLIXIMAB BIOSIMILAR 800 MG in NS 170 ML IV ONE; -NS 1,000 ML IV SCH; -diphenhydrAMINE 50MG/ML VIAL IV PRN; -methylPREDNISolone 125MG 2ML VIAL IV PRN
== END ==
LOC: M SLEEP 20:00
PROVIDERS: ATTEND Internal Medicine Pulmonary Disease
DX: G47.33 Obstructive sleep apnea (adult) (pediatric) (principal); R06.83 Snoring

== ENCOUNTER 2024-07-06 15:59 | Outpatient (CLI) | payer BC ==
[~2024-07-06] VITALS: Ht 185.4 cm; Wt 80.3 kg
[~2024-07-06 15:59] MED LIST changes: +ALBUTEROL SULFATE 2.5MG/0.5ML INH NEB SOLN INH PRN; +EPINEPHrine INJ 1 MG/ML 1ML AMP IM PRN; +diphenhydrAMINE 50MG/ML VIAL IV PRN; +methylPREDNISolone 125MG 2ML VIAL IV PRN
[2024-07-06 16:10] VITALS: BP 140/92; O2SAT 98
[2024-07-06] MEDS: ACETAMINOPHEN 650MG PO PRIOR TO INFUSION PO ONE (16:27)
[2024-07-06] MEDS: INFLIXIMAB BIOSIMILAR 800 MG in NS 170 ML IV ONE (16:30)
[2024-07-06 17:35] VITALS: BP 136/80; O2SAT 98
== END 2024-07-06 17:40 | disposition home or self-care (01) ==
LOC: M INFU 15:59
PROVIDERS: ATTEND Internal Medicine Rheumatology
DX: M08.00 Unspecified juvenile rheumatoid arthritis of unspecified site (principal)
CPT/HCPCS: 96413; Q5103

== ENCOUNTER 2024-08-17 15:45 | Outpatient (CLI) | payer BC ==
[~2024-08-17] VITALS: Ht 185.4 cm; Wt 81.0 kg
[2024-08-17 15:45] VITALS: BP 135/88; O2SAT 97
[~2024-08-17 15:45] MED LIST changes: +ACETAMINOPHEN 650MG PO PRIOR TO INFUSION PO ONE; +INFLIXIMAB BIOSIMILAR 800 MG in NS 170 ML IV ONE
[2024-08-17] MEDS: INFLIXIMAB BIOSIMILAR 800 MG in NS 170 ML IV ONE (16:44)
[2024-08-17 17:00] VITALS: BP 131/61; O2SAT 98
[2024-08-17 17:50] VITALS: BP 133/71; O2SAT 99
== END 2024-08-17 17:50 ==
LOC: M INFU 15:45
PROVIDERS: ATTEND Internal Medicine Rheumatology
DX: M08.00 Unspecified juvenile rheumatoid arthritis of unspecified site (principal)
CPT/HCPCS: 96413; Q5103

== ENCOUNTER → 2024-09-09 | Outpatient (CLI) | payer BC ==
[~2024-09-09] MED LIST changes: -ACETAMINOPHEN 650MG PO PRIOR TO INFUSION PO ONE; -ALBUTEROL SULFATE 2.5MG/0.5ML INH NEB SOLN INH PRN; -EPINEPHrine INJ 1 MG/ML 1ML AMP IM PRN; -INFLIXIMAB BIOSIMILAR 800 MG in NS 170 ML IV ONE; -diphenhydrAMINE 50MG/ML VIAL IV PRN; -methylPREDNISolone 125MG 2ML VIAL IV PRN
== END ==
LOC: M SLEEP 20:00
PROVIDERS: ATTEND Internal Medicine Pulmonary Disease
DX: G47.33 Obstructive sleep apnea (adult) (pediatric) (principal)

== ENCOUNTER 2024-09-28 15:50 | Outpatient (CLI) | payer BC ==
[~2024-09-28] VITALS: Ht 185.4 cm; Wt 89.9 kg
[2024-09-28 15:50] VITALS: BP 146/87; O2SAT 100
[~2024-09-28 15:50] MED LIST changes: +ACETAMINOPHEN 650MG PO PRIOR TO INFUSION PO ONE; +ALBUTEROL SULFATE 2.5MG/0.5ML INH CONCENTRATE NEB SOLN INH PRN; +EPINEPHrine INJ 1 MG/ML 1ML AMP IM PRN; +diphenhydrAMINE 50MG/ML VIAL IV PRN; +methylPREDNISolone 125MG 2ML VIAL IV PRN
[2024-09-28 16:20] LABS: HEMATOCRIT 41.5 % (42.0-52.0); HEMOGLOBIN 13.6 g/dl (13.5-17.5); MEAN CORPUSCULAR HEMOGLOBIN 28.8 pg (27.0-33.0); MEAN CORPUSCULAR HGB CONC 32.8 g/dl (32.0-36.5); MEAN CORPUSCULAR VOLUME 87.7 fl (80.0-96.0); PLATELET COUNT, AUTOMATED 359 10^3/uL (150-450); RED BLOOD COUNT 4.73 10^6/uL (4.30-6.10); WHITE BLOOD COUNT 9.8 10^3/uL (4.0-10.0)
[2024-09-28] MEDS: INFLIXIMAB BIOSIMILAR 900 MG in NS 160 ML IV ONE (16:31)
[2024-09-28 16:36] LABS: ERYTHROCYTE SEDIMENTATION RATE 37 mm/hr (0-15)
[2024-09-28 16:39] LABS: ALBUMIN 3.7 G/DL (3.2-5.2); ALKALINE PHOSPHATASE 115 U/L (40-129); ALT/SGPT 13 U/L (7.0-40); AST/SGOT 10 U/L (<34); BILIRUBIN,TOTAL < 0.2 MG/DL (0.3-1.2); BLOOD UREA NITROGEN 11 MG/DL (9-23); C REACTIVE PROTEIN QUANTITATIV 0.71 MG/DL (<1.0); CARBON DIOXIDE LEVEL 30 MMOL/L (20-31); CHLORIDE LEVEL 104 MMOL/L (98-107); CREATININE FOR GFR 0.76 MG/DL (0.70-1.30); GLOMERULAR FILTRATION RATE > 90.0 (>60); GLUCOSE, FASTING 86 MG/DL (60-100); POTASSIUM SERUM 4.1 MMOL/L (3.5-5.1); SODIUM LEVEL 142 MMOL/L (136-145); TOTAL PROTEIN 7.5 G/DL (5.7-8.2)
[2024-09-28 17:31] LABS: ATYPICAL LYMPH 7 % (0-5); BASOPHILS 2 % (0-1); BLAST CELLS 1 % (0-0); EOSINOPHILS 2 % (0-3); LYMPHOCYTES 63 % (16-44); MONOCYTES 1 % (0-5); NEUTROPHILS 24 % (28-66)
[2024-09-28 17:32] LABS: PLATELET ESTIMATE NORMAL (NORMAL)
[2024-09-28 17:45] VITALS: BP 148/84; O2SAT 99
[2024-10-04] MEDS ORDERED: PREG200C2 PO (07:40)
[2024-10-04] MEDS ORDERED: VENL75CA47 PO (07:40)
[2024-10-04] MEDS ORDERED: BUPR150T12 PO (07:40)
[2024-10-04] MEDS ORDERED: DICY-61 PO (07:40)
[2024-10-04] MEDS ORDERED: MONT10TA97 PO (07:44)
== END 2024-09-28 17:45 ==
LOC: M INFU 15:50
PROVIDERS: ATTEND Internal Medicine Rheumatology
DX: M08.00 Unspecified juvenile rheumatoid arthritis of unspecified site (principal)
CPT/HCPCS: 36592; 80053; 85025; 85652; 86140; 96413; Q5103

== ENCOUNTER 2024-10-18 07:06 | Day surgery (SDC) | payer BC ==
[~2024-10-18] VITALS: Ht 185.4 cm; Wt 90.1 kg
[~2024-10-18 07:06] MED LIST changes: -ACETAMINOPHEN 650MG PO PRIOR TO INFUSION PO ONE; -ALBUTEROL SULFATE 2.5MG/0.5ML INH CONCENTRATE NEB SOLN INH PRN; +BUPR150T12 PO; +DICY-61 PO; -EPINEPHrine INJ 1 MG/ML 1ML AMP IM PRN; +MONT10TA97 PO; +PREG200C2 PO; +VENL75CA47 PO; -diphenhydrAMINE 50MG/ML VIAL IV PRN; -methylPREDNISolone 125MG 2ML VIAL IV PRN
[2024-10-18] MEDS ORDERED: LR 1,000 ML IV SCH (07:10)
[2024-10-18] MEDS ORDERED: ACETAMINOPHEN 1000MG/100ML IV BAG As Ordered ONE (07:52)
[2024-10-18] MEDS ORDERED: ROCURONIUM BROMIDE 50MG/5ML VIAL As Ordered ONE (07:52)
[2024-10-18] MEDS ORDERED: SUGAMMADEX SODIUM 500 MG/5 ML VIAL (BRIDION) As Ordered ONE (07:52)
[2024-10-18] MEDS ORDERED: LIDOCAINE 2% 100MG/5ML SDV (FOR ANES.) As Ordered ONE (07:52)
[2024-10-18] MEDS ORDERED: fentaNYL 100 MCG/2 ML INJECTION As Ordered ONE (07:53)
[2024-10-18] MEDS ORDERED: MIDAZOLAM INJ 2MG/2ML VIAL As Ordered ONE (07:53)
[2024-10-18] MEDS ORDERED: propofoL 200 MG/20 ML VIAL As Ordered ONE (07:53)
[2024-10-18] MEDS ORDERED: ONDANSETRON 4MG 2ML VIAL As Ordered ONE (07:57)
[2024-10-18] MEDS ORDERED: MORPHINE 2 MG/ML 1ML VIAL IV PRN (09:45)
[2024-10-18] MEDS ORDERED: HYDROmorphone HCL 2MG/ML 1ML VIAL As Ordered ONE (09:58)
[2024-10-18] MEDS: fentaNYL 100 MCG/2 ML INJECTION IV PRN (10:10)
[2024-10-18] MEDS: ONDANSETRON 4MG 2ML VIAL IV PRN (10:10)
[2024-10-18] MEDS: oxyCODONE 5MG TAB PO PRN (10:15)
[2024-10-18 12:30] VITALS: BP 135/84; TEMP 97.9; O2SAT 98
== END 2024-10-18 12:36 | disposition home or self-care (01) ==
LOC: M SDC 07:06
PROVIDERS: ATTEND Otolaryngology
DX: J35.1 Hypertrophy of tonsils (principal); D10.5 Benign neoplasm of other parts of oropharynx; K50.90 Crohn's disease, unspecified, without complications; K21.9 Gastro-esophageal reflux disease without esophagitis; G47.30 Sleep apnea, unspecified; J45.909 Unspecified asthma, uncomplicated; Z79.899 Other long term (current) drug therapy; M06.9 Rheumatoid arthritis, unspecified; Z87.891 Personal history of nicotine dependence
CPT/HCPCS: 42826; 88302; 88305; J0131; J0665; J1100; J1171; J2250; J2405; J3010

== ENCOUNTER 2024-12-24 15:41 | Outpatient (CLI) | payer BC ==
[~2024-12-24] VITALS: Ht 185.4 cm; Wt 91.8 kg
[~2024-12-24 15:41] MED LIST changes: +ACETAMINOPHEN 650MG PO PRIOR TO INFUSION PO ONE; +ALBUTEROL SULFATE 2.5 MG/0.5 ML INH CONCENTRATE NEB SOLN INH PRN; +EPINEPHrine INJ 1 MG/ML 1ML AMP IM PRN; +diphenhydrAMINE 50 MG/ML VIAL IV PRN
[2024-12-24 15:50] VITALS: BP 148/68; TEMP 98.5; O2SAT 99
[2024-12-24] MEDS: INFLIXIMAB BIOSIMILAR 900 MG in NS 160 ML IV ONE (16:35)
[2024-12-24 17:39] VITALS: BP 131/79; O2SAT 97
== END 2024-12-24 17:36 ==
LOC: M INFU 15:41
PROVIDERS: ATTEND Internal Medicine Rheumatology
DX: M08.00 Unspecified juvenile rheumatoid arthritis of unspecified site (principal)
CPT/HCPCS: 96413; Q5103

== ENCOUNTER 2025-01-22 08:20 | Observation (INO) | payer BC ==
[2025-01-22] VITALS (12 sets, daily range): BP systolic 128–143; BP diastolic 78–87; TEMP 97–98.9; O2SAT 95–99
[~2025-01-22] VITALS: Ht 185.4 cm; Wt 91.6 kg
[2025-01-22] MEDS: LR 1,000 ML IV SCH ×2 (02:00→09:05)
[~2025-01-22 08:20] MED LIST changes: -ACETAMINOPHEN 650MG PO PRIOR TO INFUSION PO ONE; -ALBUTEROL SULFATE 2.5 MG/0.5 ML INH CONCENTRATE NEB SOLN INH PRN; +BUPR1FIL PO; -EPINEPHrine INJ 1 MG/ML 1ML AMP IM PRN; +LIDOCAINE 2% 100 MG/5 ML SDV (FOR ANES.) As Ordered ONE; +MIDAZOLAM INJ 2 MG/2 ML VIAL As Ordered ONE; +ROCURONIUM BROMIDE 50MG/5ML VIAL As Ordered ONE; -diphenhydrAMINE 50 MG/ML VIAL IV PRN
[2025-01-22] MEDS: COCAINE 4% 4 ML NASAL SOLUTION BTL As Ordered ONE (10:03)
[2025-01-22] MEDS ORDERED: ACETAMINOPHEN 1000MG/100ML IV BAG As Ordered ONE (10:04)
[2025-01-22] MEDS: OXYMETAZOLINE 0.05% NASAL SPRAY As Ordered ONE (10:10)
[2025-01-22] MEDS ORDERED: dexAMETHasone 4 MG/ML 1 ML VIAL As Ordered ONE (10:15)
[2025-01-22] MEDS ORDERED: ONDANSETRON 4MG 2ML VIAL As Ordered ONE (10:16)
[2025-01-22] MEDS ORDERED: KETOROLAC 30 MG/ML 1 ML VIAL As Ordered ONE (10:16)
[2025-01-22] MEDS ORDERED: SUGAMMADEX SODIUM 500 MG/5 ML VIAL As Ordered ONE (10:17)
[2025-01-22] MEDS: LIDOCAINE W/EPINEPHrine 1% 20 ML VIAL As Ordered ONE (10:32)
[2025-01-22] MEDS ORDERED: MORPHINE 2 MG/ML 1 ML VIAL IV PRN (11:05)
[2025-01-22] MEDS: ONDANSETRON 4MG 2ML VIAL IV PRN (11:45)
[2025-01-22] MEDS: AMOXICILLIN 500 MG CAP PO SCH (15:10)
[2025-01-22] MEDS ORDERED: TIZA10TA PO (15:31)
[2025-01-22] MEDS ORDERED: HOME MED LIST COMPLETE! XX SCH (15:35)
[2025-01-23] VITALS (10 sets, daily range): BP systolic 122–142; BP diastolic 67–81; TEMP 98.4–98.5; O2SAT 97–100
[2025-01-23] MEDS: MORPHINE 10 MG/ML 1 ML VIAL IV ONE (08:40)
== END 2025-01-23 12:45 | disposition home or self-care (01) ==
LOC: M SDC 08:20 → M MS4PR 08:21
PROVIDERS: ADMIT Otolaryngology; ATTEND Otolaryngology
DX: J34.2 Deviated nasal septum (principal); J34.3 Hypertrophy of nasal turbinates; G47.33 Obstructive sleep apnea (adult) (pediatric); R51.9 Headache, unspecified; K50.90 Crohn's disease, unspecified, without complications; K21.9 Gastro-esophageal reflux disease without esophagitis; F41.9 Anxiety disorder, unspecified; Z79.899 Other long term (current) drug therapy
CPT/HCPCS: 30140; 30520; 96361; 96374; C9143; J0131; J1100; J2250; J2405; J3010

== ENCOUNTER 2025-02-04 14:20 | Outpatient (CLI) | payer BC ==
[~2025-02-04] VITALS: Ht 182.9 cm; Wt 98.1 kg
[~2025-02-04 14:20] MED LIST changes: +ALBUTEROL SULFATE 2.5 MG/0.5 ML INH CONCENTRATE NEB SOLN INH PRN; +EPINEPHrine INJ 1 MG/ML 1ML AMP IM PRN; -LIDOCAINE 2% 100 MG/5 ML SDV (FOR ANES.) As Ordered ONE; -MIDAZOLAM INJ 2 MG/2 ML VIAL As Ordered ONE; -ROCURONIUM BROMIDE 50MG/5ML VIAL As Ordered ONE; +TIZA10TA PO; +diphenhydrAMINE 50 MG/ML VIAL IV PRN
[2025-02-04 14:25] VITALS: BP 134/80; O2SAT 98
[2025-02-04] MEDS ORDERED: ACETAMINOPHEN 650MG PO PRIOR TO INFUSION PO ONE (14:45)
[2025-02-04] MEDS: INFLIXIMAB BIOSIMILAR 900 MG in NS 160 ML IV ONE (15:20)
[2025-02-04 16:20] VITALS: BP 132/84; O2SAT 100
== END 2025-02-04 16:25 | disposition home or self-care (01) ==
LOC: M INFU 14:20
PROVIDERS: ATTEND Internal Medicine Rheumatology
DX: M08.00 Unspecified juvenile rheumatoid arthritis of unspecified site (principal)
CPT/HCPCS: 96413; Q5103

== ENCOUNTER 2025-05-27 08:25 | Outpatient (CLI) | payer BC ==
[~2025-05-27] VITALS: Ht 185.4 cm; Wt 93.2 kg
[2025-05-27 08:00] VITALS: BP 169/90; O2SAT 97
[~2025-05-27 08:25] MED LIST changes: +ACETAMINOPHEN 650MG PO PRIOR TO INFUSION PO ONE; +ALBUTEROL SULFATE 2.5 MG/0.5 ML INH CONCENTRATE NEB SOLN INH PRN; +EPINEPHrine INJ 1 MG/ML 1ML AMP IM PRN; +INFLIXIMAB BIOSIMILAR 900 MG in NS 160 ML IV ONE; +diphenhydrAMINE 50 MG/ML VIAL IV PRN
[2025-05-27] MEDS: INFLIXIMAB BIOSIMILAR 900 MG in NS 160 ML IV ONE (09:40)
[2025-05-27 09:55] VITALS: BP 147/89; O2SAT 100
[2025-05-27 10:35] VITALS: BP 139/72; O2SAT 97
== END 2025-05-27 10:40 | disposition home or self-care (01) ==
LOC: M INFU 08:25
PROVIDERS: ATTEND Internal Medicine
DX: M08.00 Unspecified juvenile rheumatoid arthritis of unspecified site (principal)
CPT/HCPCS: 36592; 96413; Q5103

== ENCOUNTER → 2025-05-27 | Outpatient (CLI) | payer BC ==
[~2025-05-27] MED LIST changes: -ALBUTEROL SULFATE 2.5 MG/0.5 ML INH CONCENTRATE NEB SOLN INH PRN; -EPINEPHrine INJ 1 MG/ML 1ML AMP IM PRN; -diphenhydrAMINE 50 MG/ML VIAL IV PRN
[2025-05-27 09:55] LABS: BASO # 0.1 10^3/uL (0.0-0.2); BASO % 0.6 % (0.0-1.0); EOS # 0.3 10^3/uL (0.0-0.5); EOS % 3.3 % (0.0-3.0); LYMPH # 4.1 10^3/uL (1.5-5.0); LYMPH % 42.6 % (24.0-44.0); MONO # 0.5 10^3/uL (0.0-0.8); MONO % 5.3 % (2.0-8.0); NEUTROPHILS # 4.6 10^3/uL (1.5-8.5); NEUTROPHILS % 48.0 % (36.0-66.0); PLATELET COUNT, AUTOMATED 341 10^3/uL (150-450)
[2025-05-27 10:24] LABS: ALT/SGPT 14 U/L (7.0-40); AST/SGOT 18 U/L (<34); C REACTIVE PROTEIN QUANTITATIV < 0.50 MG/DL (<1.0); CALCIUM LEVEL 9.0 MG/DL (8.5-10.1); CARBON DIOXIDE LEVEL 28 MMOL/L (20-31); CHLORIDE LEVEL 103 MMOL/L (98-107); CREATININE FOR GFR 0.74 MG/DL (0.70-1.30); GLOMERULAR FILTRATION RATE > 90.0 (>60); POTASSIUM SERUM 3.6 MMOL/L (3.5-5.1); SODIUM LEVEL 142 MMOL/L (136-145)
== END ==
LOC: M LAB 05-07 17:58
PROVIDERS: ATTEND Internal Medicine Rheumatology
DX: M08.00 Unspecified juvenile rheumatoid arthritis of unspecified site (principal)